=== PATIENT | male | born 1950 | race Caucasian/White ===

== ENCOUNTER 2022-04-28 15:35 | Outpatient (REF) | payer MEDICARE, OTHER, SELFPAY ==
[2022-04-28 19:21] LABS: MANUAL DIFF FLAG NO
[2022-04-28 19:23] LABS: Basophils Percent Auto 0.5 % (0-2); Eosinophils Absolute Auto 0.1 X10*3/uL (0.0-0.4); Eosinophils Percent Auto 1.1 % (0-4); Hematocrit 40.6 % (42.0-52.0); Imm Gran Abs Auto 0.02 X10*3/uL (0.00-0.03); Imm Gran Pct Auto 0.3 % (0.0-0.4); Lymphocytes Absolute Auto 2.2 X10*3/uL (1.2-4.9); Lymphocytes Percent Auto 27.9 % (20-40); Mean Corpuscular HGB Conc 34.5 g/dl (31.0-36.0); Mean Corpuscular Hemoglobin 35.2 pg (27.0-33.0); Mean Platelet Volume 9.9 fL (9.4-12.4); Monocytes Absolute Auto 0.7 X10*3/uL (0.1-1.2); Monocytes Percent Auto 8.8 % (2-11); Neutrophils Absolute Auto 4.9 x10*3/uL (2.0-8.3); Neutrophils Percent Auto 61.4 % (45-73); Platelet Count 148 X10*3/uL (160-400); Red Blood Count 3.98 X10*6/uL (4.60-5.80)
[2022-04-28 19:34] LABS: Alanine Aminotransferase 23 U/L (0-40); Albumin Level 4.2 g/dL (3.5-5.0); Alkaline Phosphatase 87 U/L (39-117); Anion Gap 11 (12-20); Aspartate Amino Transferase 18 U/L (5-37); Bilirubin Total 0.5 mg/dL (0.0-1.0); Blood Urea Nitrogen 16 mg/dL (9-16); Calcium 8.9 mg/dL (8.4-10.2); Carbon Dioxide 22 mmol/L (22-29); Chloride 110 mmol/L (96-108); Estimated Glomerular Filt Rate 55; Glucose Random 102 mg/dL (60-115); Potassium 4.1 mmol/L (3.3-5.1); Sodium 139 mmol/L (135-145); Total Protein 6.5 g/dL (6.5-8.0)
[2022-04-28 19:55] LABS: Prostate Specific Antigen 0.94 ng/mL (<0.05-4.0)
[2022-04-28 19:59] LABS: Erythrocyte Sedimentation Rate 11 MM/HR (0-15)
== END 2022-04-28 15:36 | disposition home or self-care (01) ==
LOC: HO.MANLDS 15:35
PROVIDERS: Visit Provider Internal Medicine
DX: Z12.5 Encounter for screening for malignant neoplasm of prostate (principal); I10 Essential (primary) hypertension
CPT/HCPCS: 36415; 80053; 84153; 85025; 85652

== ENCOUNTER 2025-09-14 12:10 | Outpatient (REF) | payer MEDICARE, OTHER, SELFPAY ==
--- OUTSIDE RECORDS SUMMARY | 2025-09-14 14:30 | XMS_ITS | Encounter Summary ---
Author Organization [facility] Address [address] [place] [id number] Phone Care Team Providers Care Cub Reporter Name Role Phone Praneeth Barrow Primary Care Provider [phone] Encounter Details Date Type Department Care Team (Latest Contact Info) Description 03/12/2024 Transcribe Orders Virtual Department [address] [place] [address] Sarai Link PA [address] [facility] [place] [address] [place] [address] Unspecified fall, initial encounter (Primary Dx) Social History Tobacco Use Types Packs/Day Years Used Date Smoking Tobacco: Every Day Cigarettes Smokeless Tobacco: Never Comments:3/4 pack per day Alcohol Use Standard Drinks/Week Comments Not Currently 2 (1 standard drink = 0.6 oz pur e alcohol) Education Answer Date Recorded Are you interested in more education? Not on geovanny e 03/02/2023 Are you concerned about learning? Not on file 03/02/2023 No 03/02/2023 No 03/02/2023 Digital Access Answer Date Recorded No 03/31/2023 No 03/31/2023 Reliable internet access at home? Not on file 03/31/2023 Device with a working camera? 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 Not on file Not on file documented as of this encounter Plan of Treatment Upcoming Encounters Date Type Department Care Team (Late st Contact Info) Description 11/17/2025 12:45 PM EST Office Visit [facility] [address] [facility] [address]rd [address], [address] [place] [address] Richar Drake, [address] [facility] [address] [place] [address] documented as of this encounter Results * XR FOOT 3 OR MORE VIEWS (RIGHT) (03/14/2024 2:58 PM EDT) Anatomical Region Laterality Modality Foot Right Computed Radiogr aphy 03/19/2024 12:0 8 AM EDT Impressions 03/19/2024 12:10 AM EDT No acute osseous abnormality. Mild to moderate forefoot degenerative change. New 5 mm linear metallic density structure along the plantar surface of the third and fourth metatarsal heads, may reflect a foreign body. Narrative 03/19/2024 12:10 AM EDT XR FOOT 3 OR MORE VIEWS (RIGHT) Referring clinician's provided indication for this examination in [facility]: Outside Radiology Order; fall COMPARISON: XR FOOT 3 OR MORE VIEWS (RIGHT) FINDINGS: No acute fracture or dislocation. Alignment within normal limits. Mild to moderate interphalangeal and first metatarsophalangeal joint space narrowing with marginal spurring. A 5 mm linear metallic density structure overlies the plantar surface of the third and fourth metatarsal heads. There are questionable erosions in the medial and middle cuneiform joint, potentially degenerative. Procedure Note Lidya Romo MD - 03/19/2024 XR FOOT 3 OR MORE VIEWS (RIGHT) Referring clinician's provided indication for this examination in [facility]:Outside Radiology Order; fall COMPARISON: XR FOOT 3 OR MORE VIEWS (RIGHT) FINDINGS: No acute fracture or dislocation. Alignment within normal limits. Mild tomoderate interphalangeal and first metatarsophalangeal joint spacenarrowing with marginal spurring. A 5 mm linear metallic density structure overlies the plantar surface ofthe third and fourth metatarsal heads. There are questionable erosions in the medial and middle cuneiform joint,potentially degenerative. IMPRESSION: No acute osseous abnormality. Mild to moderate forefoot degenerative change. New 5 mm linear metallic density structure along the plantar surface ofthe third and fourth metatarsal heads, may reflect a foreign body. us Sarai MAIER IMG XR LOWER EXTREMITY Lola l Result * XR FEMUR (RIGHT) 2 VIEWS (03/14/2024 2:58 PM EDT) Anatomical Region Laterality Modality Thigh Right Computed Radiogr aphy 03/19/2024 12:0 5 AM EDT Impressions 03/19/2024 12:08 AM EDT No acute fracture. Mild to moderate knee degenerative change. Narrative 03/19/2024 12:08 AM EDT XR FEMUR 2 OR MORE VIEWS (RIGHT) Referring clinician's provided indication for this examination in [facility]: Outside Radiology Order; fall COMPARISON: None FINDINGS: No acute fracture or dislocation. Gluteal enthesopathy at the greater trochanter. Calcific enthesopathy of the greater trochanter. Partially visualized hip joint space narrowing. Mild to moderate tricompartmental joint space narrowing at the knee. Arteries moderately calcified. Procedure Note Lidya Romo MD - 03/19/2024 XR FEMUR 2 OR MORE VIEWS (RIGHT) Referring clinician's provided indication for this examination in [facility]:Outside Radiology Order; fall COMPARISON: None FINDINGS: No acute fracture or dislocation. Gluteal enthesopathy at the greatertrochanter. Calcific enthesopathy of the greater trochanter. Partiallyvisualized hip joint space narrowing. Mild to moderate tricompartmentaljoint space narrowing at the knee. Arteries moderately calcified. IMPRESSION: No acute fracture. Mild to moderate knee degenerative change. Sarai PULIDO XR LOWER EXTREMITY Lola l Result * XR ANKLE 3 OR MORE VIEWS (RIGHT) (03/14/2024 2:57 PM EDT) Anatomical Region Laterality Modality Ankle Right Computed Radiogr aphy 03/19/2024 12:0 4 AM EDT Impressions 03/19/2024 12:05 AM EDT No acute osseous abnormality. Mild tibiotalar osteoarthritis. Narrative 03/19/2024 12:05 AM EDT XR ANKLE 3 OR MORE VIEWS (RIGHT) Referring clinician's provided indication for this examination in Epic: Outside Radiology Order; fall COMPARISON: XR ANKLE 3 OR MORE VIEWS (RIGHT) FINDINGS: No acute fracture or dislocation. No regional soft tissue swelling. Ankle mortise symmetric. Mild spurring at the tibiotalar joint. 2 mm plantar calcaneal spur. Procedure Note Lidya Romo MD - 03/19/2024 XR ANKLE 3 OR MORE VIEWS (RIGHT) Referring clinician's provided indication for this examination in Epic:Outside Radiology Order; fall COMPARISON: XR ANKLE 3 OR MORE VIEWS (RIGHT) FINDINGS: No acute fracture or dislocation. No regional soft tissue swelling. Anklemortise symmetric. Mild spurring at the tibiotalar joint. 2 mm plantarcalcaneal spur. IMPRESSION: No acute osseous abnormality. Mild tibiotalar osteoarthritis. Sarai MAIER IMG XR LOWER EXTREMITY Lola l Result documented in this encounter Visit Diagnoses Diagnosis Unspecified fall, initial encounter- Primary Unspecified fall, initial encounter Unspecified fall, initial encounter Unspecified fall, initial encounter documented in this encounter Care Teams Cub Reporter Relationship Specialty Start Date End Date Praneeth Barrow DO [email or web address] PCP - General 11/08/17 documented as of this encounter Additional Source Comments The information contained in this document represents components of the legal health record. It is not the complete legal health record.[facility]
--- OUTSIDE RECORDS SUMMARY | 2025-09-14 14:30 | XMS_ITS | Encounter Summary ---
Author Organization [facility] Address [address] [place] [address] Phone Care Team Providers Care Mat Cleaning Machine Operator Name Role Phone Praneeth Barrow DO Primary Care Provider [phone] Reason for Referral * MRI/CAT Scan - Closed Specialty Diagnoses / Procedures Referred By Geri austin Referred To Contact Radiology Diagnoses Other specified disorders of adrenal gland Procedures CT Abdomen Only (No Pelvis) Praneeth Barrow DO Phone: tel: fax: mailto:[email or web address] Referral ID Status Reason Start Date Expiration Date Visits Re quested Visits Authorized [id number] Closed 07/23/2024 07/23/2025 1 1 * Outpatient Procedure - Closed Specialty Diagnoses / Procedures Referred By Geri austin Referred To Contact Radiology Diagnoses Pararenal abdominal aortic aneurysm, without rupture Procedures US Aorta Duplex Complete Praneeth Barrow DO Phone: tel: fax: mailto:[email or web address] Referral ID Status Reason Start Date Expiration Date Visits Re quested Visits Authorized [id number] Closed 07/23/2024 07/23/2025 1 1 Encounter Details Date Type Department Care Team (Late st Contact Info) Description 07/23/2024 Transcribe Orders Virtual Department [address] [place] [address] Praneeth Barrow DO [address] [facility] [place] [address] [place] [address] Pararenal abdominal aortic aneurysm, without rupture (Primary Dx); Other specified disorders of adrenal gland Social History Tobacco Use Types Packs/Day Years [...] 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 Not on file documented as of this encounter Plan of Treatment Upcoming Encounters Date Type Department Care Team (Late st Contact Info) Description 11/17/2025 12:45 PM EST Office Visit [facility] [address] [place] [address] [address]rd Floor, [address] [place] [address] Richar Drake DO [address] [facility] [address] [place] [address] [email or web address] documented as of this encounter Results * CT ABDOMEN (ADRENAL MASS) WITHOUT CONTRAST (09/24/2024 10:52 AM EST) Anatomical Region Laterality Modality Abdomen, Abdominal Vasculature C omputed Tomography 09/30/2024 8:43 AM EST Impressions 09/30/2024 8:56 AM EST 1. Stable 2 x 2.4 cm left adrenal nodule from lumbar spine CT 2018 probably representing a benign adenoma. Normal right adrenal gland. 2. Bilateral renal cysts. Stable 3.6 x 3.7 cm fusiform infrarenal abdominal aortic aneurysm. IVC filter. Diverticulosis. Narrative 09/30/2024 8:[address] ABDOMEN (ADRENAL MASS) WITHOUT CONTRAST Referring clinician's provided indication for this examination in Epic: Outside Radiology Order; disorder adrenal gland TECHNIQUE: Multidetector-row CT of the abdomen was performed without intravenous contrast using tailored dose modulation techniques. Images were reconstructed in the axial, coronal, and sagittal planes. COMPARISON: Previous CT of the abdomen and pelvis February 2024 exam lumbar spine MRI February 2019 ABSENCE OF INTRAVENOUS CONTRAST DECREASES SENSITIVITY FOR DETECTION OF FOCAL LESIONS AND VASCULAR PATHOLOGY. FINDINGS: Lower Chest: Normal. No consolidation or pleural effusions. Liver: Normal. No focal lesions. Biliary: Normal. No biliary ductal dilatation. Spleen: Normal. No splenomegaly or focal lesions. Pancreas: Normal. No masses or ductal dilatation. Adrenal Glands: 2 x 2.4 cm left adrenal nodule. This is stable going back to the lumbar spine CT from 2019. Hounsfield units without IV contrast measure between 16- 27. The right adrenal gland is normal. Kidneys/Ureters: Bilateral renal cysts. No stone or hydronephrosis. Bowel: Diverticulosis of the colon. No distention or wall thickening. Peritoneum/Retroperitoneum: Partially visualized SENIOR LITIGATION PARALEGAL shunt catheter. No masses, pneumoperitoneum, or fluid. Lymph Nodes: Normal. No lymphadenopathy. Vessels: Infrarenal IVC filter, unchanged. 3 x 3.7 cm infrarenal abdominal aortic aneurysm, unchanged. Bones/Soft Tissues: Degenerative changes of the spine. Procedure Note Sabine Lowe MD - 09/30/2024 CT ABDOMEN (ADRENAL MASS) WITHOUT CONTRAST Referring clinician's provided indication for this examination in [facility]:Outside Radiology Order; disorder adrenal gland TECHNIQUE: Multidetector-row CT of the abdomen was performed withoutintravenous contrast using tailored dose modulation techniques. Imageswere reconstructed in the axial, coronal, and sagittal planes. COMPARISON: Previous CT of the abdomen and pelvis February 2024 exam lumbarspine MRI February 2019 ABSENCE OF INTRAVENOUS CONTRAST DECREASES SENSITIVITY FOR DETECTION OFFOCAL LESIONS AND VASCULAR PATHOLOGY. FINDINGS: Lower Chest: Normal. No consolidation or pleural effusions. Liver: Normal. No focal lesions. Biliary: Normal. No biliary ductal dilatation. Spleen: Normal. No splenomegaly or focal lesions. Pancreas: Normal. No masses or ductal dilatation. Adrenal Glands: 2 x 2.4 cm left adrenal nodule. This is stable going backto the lumbar spine CT from 2019. Hounsfield units without IV contrastmeasure between 16- 27. The right adrenal gland is normal. Kidneys/Ureters: Bilateral renal cysts. No stone or hydronephrosis. Bowel: Diverticulosis of the colon. No distention or wall thickening. Peritoneum/Retroperitoneum: Partially visualized SENIOR LITIGATION PARALEGAL shunt catheter. Nomasses, pneumoperitoneum, or fluid. Lymph Nodes: Normal. No lymphadenopathy. Vessels: Infrarenal IVC filter, unchanged. 3 x 3.7 cm infrarenal abdominalaortic aneurysm, unchanged. Bones/Soft Tissues: Degenerative changes of the spine. IMPRESSION: 1. Stable 2 x 2.4 cm left adrenal nodule from lumbar spine CT 2018probably representing a benign adenoma. Normal right adrenal gland. 2. Bilateral renal cysts. Stable 3.6 x 3.7 cm fusiform infrarenalabdominal aortic aneurysm. IVC filter. Diverticulosis. us Praneeth A Bigda DO IMG CT XSPECIALTY ORDERABLES Fin al Result * US Aorta Duplex Complete (07/29/2024 11:48 AM EDT) Anatomical Region Laterality Modality Aorta Ultrasound 07/29/2024 11:4 8 AM EDT Narrative 07/30/2024 10:36 AM EDT US AORTA DUPLEX COMPLETE Referring clinician's provided indication for this examination in Epic: Outside Radiology Order; disorder adrenal gland TECHNIQUE: A duplex ultrasound evaluation of the abdominal aorta and iliac arteries as well as the inferior vena cava was performed using a combination of abad scale imaging, color duplex and spectral Doppler analysis. COMPARISON: CT angiogram dated 02/04/2024, aortic ultrasound dated 08/28/2023 FINDINGS: Exam Quality: Technically adequate exam demonstrates: GENERAL: Abnormal color and spectral Doppler in the imaged aorta. Atherosclerotic plaque throughout. Aorta: Proximal: Aneurysmal Mid: Aneurysmal Distal: Ectatic IVC: Patent with normal spectral Doppler waveforms. Right Common Iliac Artery: Ectatic Left Common Iliac Artery: Ectatic Duplex: Proximal aorta: Peak systolic velocity (cm/s): 58.5 Aorta Diameter Proximal (cm): 3.0 x 2.6 Mid aorta: Peak systolic velocity (cm/s): 67.0 Aorta Diameter Mid (cm): 3.8 x 4.2 Distal aorta: Peak systolic velocity (cm/s): 23.8 Aorta Diameter Distal (cm): 2.6 x 2.7 Iliac arteries: Right common Iliac artery: Peak systolic velocity (cm/s): 174 Diameter(cm): 1.1 x 1.1 Left common Iliac artery: Peak systolic velocity (cm/s): 187 Diameter (cm): 1.2 x 1.2 IMPRESSIONS: * Abdominal aortic aneurysm measuring up to 4.2 cm, increased in size and previously measuring 3.[address] angiogram from 02/04/2024 and 3.6 cm on ultrasound from 08/28/2023. Procedure Note Kalpana Mendez MD - 07/30/2024 US AORTA DUPLEX COMPLETE Referring clinician's provided indication for this examination in Epic:Outside Radiology Order; disorder adrenal gland TECHNIQUE: A duplex ultrasound evaluation of the abdominal aorta and iliacarteries as well as the inferior vena cava was performed using acombination of abad scale imaging, color duplex and spectral Doppleranalysis. COMPARISON: CT angiogram dated 02/04/2024, aortic ultrasound dated1 FINDINGS: Exam Quality: Technically adequate exam demonstrates: GENERAL: Abnormal color and spectral Doppler in the imaged aorta.Atherosclerotic plaque throughout. Aorta: Proximal: Aneurysmal Mid: Aneurysmal Distal: Ectatic IVC: Patent with normal spectral Doppler waveforms. Right Common Iliac Artery: Ectatic Left Common Iliac Artery: Ectatic Duplex: Proximal aorta: Peak systolic velocity (cm/s): 58.5 Aorta Diameter Proximal (cm): 3.0 x 2.6 Mid aorta: Peak systolic velocity (cm/s): 67.0 Aorta Diameter Mid (cm): 3.8 x 4.2 Distal aorta: Peak systolic velocity (cm/s): 23.8 Aorta Diameter Distal (cm): 2.6 x 2.7 Iliac arteries: Right common Iliac artery: Peak systolic velocity (cm/s): 174 Diameter(cm): 1.1 x 1.1 Left common Iliac artery: Peak systolic velocity (cm/s): 187 Diameter (cm): 1.2 x 1.2 IMPRESSIONS: * Abdominal aortic aneurysm measuring up to 4.2 cm, increased in size andpreviously measuring 3.[address] angiogram from 02/04/2024 and 3.6 cm onultrasound from 08/28/2023. us Praneeth Barrow DO IMG US ABDOMEN Final Result documented in this encounter Visit Diagnoses Diagnosis Pararenal abdominal aortic aneurysm, without rupture- Primary Other specified disorders of adrenal gland Pararenal abdominal aortic aneurysm, without rupture Other specified disorders of adrenal gland documented in this encounter Care Teams Mat Cleaning Machine Operator Relationship Specialty Start Date End Date Praneeth Barrow DO [email or web address] PCP - General 11/08/17 documented as of this encounter Additional Source Comments The information contained in this document represents components of the legal health record. It is not the complete legal health record.[facility]
--- OUTSIDE RECORDS SUMMARY | 2025-09-14 14:30 | XMS_ITS | Encounter Summary ---
Author Organization [facility] Address [address] [place] [address] Phone Care Team Providers Care Cabinet Professional Name Role Phone Praneeth Barrow Primary Care Provider [phone] Encounter Details Date Type Department Care Team (Late st Contact Info) Description 09/19/2024 Ancillary Orders [facility] [address] [address] Marino Valdes MD 10 Members [facility], [address] [address] [email or web address] Headache disorder (Primary Dx); S/P SAFE TECHNICIAN shunt Social History Tobacco Use Types Packs/Day Years [...] 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 Not on file documented as of this encounter Plan of Treatment Upcoming Encounters Date Type Department Care Team (Late st Contact Info) Description 11/17/2025 12:45 PM EST Office Visit [facility] [address] [facility] [address] Floor, [address] [place] [address] Richar Drake, [address] [facility] [address] [place] [address] [email or web address] documented as of this encounter Results * XR SKULL LESS THAN 4 VIEWS (10/04/2024 9:12 AM EST) Anatomical Region Laterality Modality Head Computed Radiogr aphy 10/05/2024 2:53 PM EST Impressions 10/05/2024 3:03 PM EST FINDINGS/IMPRESSION: There is a right frontal approach ventricular peritoneal shunt, extending beyond the field of view inferiorly, not significantly changed compared to prior imaging given differences in technique. The visualized radiopaque portions of the shunt tubing appear grossly intact. There are sequela of left parieto-occipital craniectomy, similar to prior imaging, again given differences in technique. There are sequela of anterior fusion at C4-C5 and C5-C6, incompletely evaluated. There is a curvilinear wire density projecting over the left lower neck, extending beyond the field of view inferiorly, not significantly changed. There is no evidence of acute fracture. Narrative 10/05/2024 3:03 PM EST XR SKULL LESS THAN 4 VIEWS Referring clinician's provided indication for this examination in [facility]: Pain COMPARISON: CT head 05/02/2022, cervical spine radiographs 04/26/2020 Procedure Note Sabine Jasso MD - 10/05/2024 XR SKULL LESS THAN 4 VIEWS Referring clinician's provided indication for this examination in [facility]:Pain COMPARISON: CT head 05/02/2022, cervical spine radiographs 04/26/2020 IMPRESSION: FINDINGS/IMPRESSION: There is a right frontal approach ventricular peritoneal shunt, extendingbeyond the field of view inferiorly, not significantly changed compared toprior imaging given differences in technique. The visualized radiopaqueportions of the shunt tubing appear grossly intact. There are sequela ofleft parieto-occipital craniectomy, similar to prior imaging, again givendifferences in technique. There are sequela of anterior fusion at C4-C5and C5-C6, incompletely evaluated. There is a curvilinear wire densityprojecting over the left lower neck, extending beyond the field of viewinferiorly, not significantly changed. There is no evidence of acutefracture. us Marino Valdes MD IMG XR HEAD AND SHUNT SERIES Fin al Result * XR ABDOMEN 1 VIEW (10/04/2024 9:12 AM EST) Anatomical Region Laterality Modality Abdomen Computed Radiogr aphy 10/04/2024 3:22 PM EST Impressions 10/04/2024 3:25 PM EST 1. No acute abnormality. Narrative 10/04/2024 3:25 PM EST XR ABDOMEN 1 VIEW Referring clinician's provided indication for this examination in [facility]: Pain COMPARISON: XR ABDOMEN 1 VIEW FINDINGS: Tubes/Lines: IVC filter. Catheter extending right upper quadrant into the left lower quadrant. No fracture or change in the partially visualized catheter. Bowel: Moderate colonic stool load. Nonobstructive bowel gas pattern. Vascular calcification. Mild degenerative change. Procedure Note Sandy Beyer MD - 10/04/2024 XR ABDOMEN 1 VIEW Referring clinician's provided indication for this examination in [facility]:Pain COMPARISON: XR ABDOMEN 1 VIEW FINDINGS: Tubes/Lines: IVC filter. Catheter extending right upper quadrant into theleft lower quadrant. No fracture or change in the partially visualizedcatheter. Bowel: Moderate colonic stool load. Nonobstructive bowel gas pattern. Vascular calcification. Mild degenerative change. IMPRESSION: 1. No acute abnormality. us Marino Valdes MD IMG XR ABDOMEN Final Result * XR CHEST PA AND LATERAL 2 VIEWS (10/04/2024 9:11 AM EST) Anatomical Region Laterality Modality Chest Computed Radiogr aphy 10/04/2024 3:20 PM EST Impressions 10/04/2024 3:22 PM EST No acute cardiopulmonary abnormality. Narrative 10/04/2024 3:22 PM EST XR CHEST PA AND LATERAL 2 VIEWS Referring clinician's provided indication for this examination in [facility]: Pain COMPARISON: XR CHEST PA AND LATERAL 2 VIEWS FINDINGS: Devices/Tubes/Lines: Partially visualized catheter extending along the length of the right hemithorax extending both cranial and caudal to this radiograph. Device left mid hemithorax laterally extending left neck, with postoperative change, as before, not well seen at the neck. Lungs: Normal. The lungs are clear. No focal consolidation or pulmonary edema. Pleura: Normal. No pleural effusion or pneumothorax. Heart/Mediastinum: Unchanged in appearance. Bones/Soft Tissues: No acute fracture. Please see separate x-rays of the abdomen and skull performed same day. Procedure Note Sandy Beyer MD - 10/04/2024 XR CHEST PA AND LATERAL 2 VIEWS Referring clinician's provided indication for this examination in [facility]:Pain COMPARISON: XR CHEST PA AND LATERAL 2 VIEWS FINDINGS: Devices/Tubes/Lines: Partially visualized catheter extending along thelength of the right hemithorax extending both cranial and caudal to thisradiograph. Device left mid hemithorax laterally extending left neck, withpostoperative change, as before, not well seen at the neck. Lungs: Normal. The lungs are clear. No focal consolidation or pulmonaryedema. Pleura: Normal. No pleural effusion or pneumothorax. Heart/Mediastinum: Unchanged in appearance. Bones/Soft Tissues: No acute fracture. Please see separate x-rays of the abdomen and skull performed same day. IMPRESSION: No acute cardiopulmonary abnormality. us Marino Valdes MD IMG XR CHEST Final Result documented in this encounter Visit Diagnoses Diagnosis Headache disorder- Primary Headache S/P SAFE TECHNICIAN shunt Presence of cerebrospinal fluid drainage device Headache disorder Headache S/P SAFE TECHNICIAN shunt Presence of cerebrospinal fluid drainage device Headache disorder Headache S/P SAFE TECHNICIAN shunt Presence of cerebrospinal fluid drainage device Headache disorder Headache S/P SAFE TECHNICIAN shunt Presence of cerebrospinal fluid drainage device documented in this encounter Care Teams Cabinet Professional Relationship Specialty Start Date End Date Praneeth Barrow DO [email or web address] PCP - General 11/08/17 documented as of this encounter Additional Source Comments The information contained in this document represents components of the legal health record. It is not the complete legal health record.[facility]
--- OUTSIDE RECORDS SUMMARY | 2025-09-14 14:30 | XMS_ITS | Encounter Summary ---
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 Not on file Not on file documented as of this encounter Plan of Treatment Upcoming Encounters Date Type Department Care Team (Late st Contact Info) Description 11/17/2025 12:45 PM EST Office Visit [facility] [address] [facility] 3[address], [address] [place] [address] Richar Drake DO [address] [facility] [address] [place] [id number] documented as of this encounter Visit Diagnoses Not on filedocumented in this encounter Care Teams Silk Screen Printer Helper Relationship Specialty Start Date End Date Praneeth Barrow DO PCP - General 11/08/17 documented as of this encounter Additional Source Comments The information contained in this document represents components of the legal health record. It is not the complete legal health record.[facility]
--- OUTSIDE RECORDS SUMMARY | 2025-09-14 14:30 | XMS_ITS | Clinical Summary ---
Author Organization [facility] Address [address] [place] [phone] Phone Care Team Providers Care Scientific Informatics Leader Name Role Phone Shelley Izquierdo Primary Care Provider [phone] Allergies No known active allergies Medications aspirin 81 MG EC tablet 1 tablet Active MULTIVIT WITH MINERALS/LUTEIN (MULTIVITAMIN 50 PLUS ORAL) Active albuterol (PROAIR HFA) 90 mcg/actuation inhaler 2 puffs as needed Active sertraline (ZOLOFT) 100 MG tablet 1 tablet & 1/2 TABS 0 Active montelukast (SINGULAIR) 10 mg tablet 1 tablet in the evening Active nicotine (NICOTROL) 10 mg inhaler Inhale 2 puffs into the lungs every 2 (two) hours as needed for smoking cessation. Inhale deeply into back of throat or puff in short breaths. As you puff, nicotine is absorbed into your mouth and throat. 168 each 3 8 Active Additional Information Patient not taking.Reported on 07/02/2025 atorvastatin (LIPITOR) 40 MG tablet Take 40 mg by mouth nightly. Active acetaminophen (TYLENOL) 325 mg tablet Take 2 tablets (650 mg total) by mouth every 6 (six) hours as needed for mild pain. 40 tablet 9 Active lidocaine (LIDODERM) 5 % Place 1 patch onto the skin daily. Remove & Discard patch within 12 hours or as directed by 15 patch 9 Active Additional Information Patient not taking.Reported on 07/02/2025 cyclobenzaprine (FLEXERIL) 5 MG tablet Take 1 tablet (5 mg total) by mouth 3 (three) times a day as needed (muscle spasm). Do not drink or drive after taking. Medicine may make you drowsy. 8 tablet 9 Active Additional Information Patient not taking.Reported on 07/02/2025 LORazepam (ATIVAN) 1 MG tablet Take 1 mg by mouth daily as needed. Active omeprazole (PRILOSEC) 20 MG capsule omeprazole 20 mg capsule,delayed release Active flu vacc [id number],65yr up,-PF (FLUZONE HIGHDOSE QUAD - PF) 240 mcg/0.7 mL Syrg Fluzone High-Dose Quad (PF) 240 mcg/0.7 mL IM syringe PHARMACY ADMINISTERED Active fluticasone-ume clidin-vilanter (TRELEGY ELLIPTA) 100-62.5-25 mcg inhalation powder Inhale 1 puff into the lungs daily. 60 each 11 0 Active Additional Information Patient not taking.Reported on 07/02/2025 budesonide (PULMICORT) 0.5 mg/2 mL nebulizer solution Take 2 mL (0.5 mg total) by nebulization 2 (two) times a day. 360 mL 3 0 Active Additional Information Patient not taking.Reported on 07/02/2025 atenolol (TENORMIN) 25 MG tablet Take 25 mg by mouth daily. Active zonisamide (ZONEGRAN) 100 MG capsule Take 200 mg by mouth. 1 Active lamoTRIgine (LAMICTAL XR) 300 mg TR24 Take 600 mg by mouth. 1 Active levETIRAcetam (KEPPRA) 1000 MG tablet Take 1,000 mg by mouth. 1 Active levETIRAcetam (KEPPRA) 750 MG tablet Take 750 mg by mouth. 1 Active baclofen (LIORESAL) 5 mg tablet TAKE 1 TABLET BY MOUTH EVERY DAY NEEDED MUSCLE SPASM 5 Active fluorometholone (FLAREX) 0.1 % ophthalmic suspension Flarex 0.1 % eye drops,suspension INSTILL 1 DROPP IN BOTH EYES EVERY OTHER DAY Active tobramycin-dexA METHasone (TOBRADEX) ophthalmic ointment TobraDex 0.3 %-0.1 % eye ointment APPLY TO BOTH LIDS ONCE DAILY AT BED TIME FOR ONE WEEK Active prednisoLONE acetate (PRED FORTE) 1 % ophthalmic suspension PLACE 1 DROP INTO EACH EYE TWICE DAILY DIRECTED Active Active Problems Problem Noted Date Diagnosed Date Coronary arteriosclerosis 04/13/2025 Assessment & Plan (04/13/2025 1:34 PM EDT): This patient has known CAD we just have to control his risk factors and get an assessment of his LV function and ischemic burden with the above-mentioned examinations in addition I ordered him lab tests Weakness 06/28/2018 Right hemiparesis 06/28/2018 Assessment & Plan (04/13/2025 1:33 PM EDT): He will have a difficult time walking on the treadmill therefore I ordered a pharmacologic stress test Assessment & Plan (06/29/2018 5:56 PM EDT): Presented with right-sided weakness after seizure. Improved significantly. Head CT unremarkable. Likely related to seizure, question Tien's paralysis. Metabolic derangements (DAMIEN) could also be a factor --Continue usual antiepileptics including Lamictal, zonisamide, and Keppra. Pharmacy help appreciated, home regimen verified as outpatient pharmacy. --PT/OT evals today showed significant improvement in mobility. They recommend a walker and home physical therapy. -- is concerned about him going home today and needs help at home caring for him. We will involve case liner in the morning and get VNA to the house along with home PT. Essential hypertension 06/28/2018 Assessment & Plan (04/13/2025 1:33 PM EDT): Well-controlled at this time Assessment & Plan (06/28/2018 10:57 AM EDT): Continue atenolol, hold Nicho Elevated serum creatinine 06/28/2018 Assessment & Plan (06/29/2018 5:58 PM EDT): Baseline creatinine 1.4-1.5 in 2016. Presented with elevated creatinine of 2.1. Now back down to 1.3. No more vomiting. --Avoid nephrotoxins Status post VNS (vagus nerve stimulator) placeme nt 04/14/2018 Obstructive sleep apnea 01/11/2018 Assessment & Plan (04/13/2025 1:33 PM EDT): Present but treated Assessment & Plan (10/07/2020 4:59 PM EST): Patient not using CPAP as he has been feeling suffocated. Perhaps using the budesonide ampules intranasally again will help that. Assessment & Plan (01/11/2018 11:19 AM EST): Recommend weight loss and CPAP. Nasal obstruction is a significant barrier to treatment. Chronic sinusitis 01/11/2018 Assessment & Plan (10/07/2020 4:59 PM EST): Will reorder Pulmicort nebs to be instill intranasally. Not sure why it would cost in the thousand dollars for that medication. I feel that it must be an error and I will re-prescribe. Assessment & Plan (01/11/2018 11:18 AM EST): Still constantly dealing with nasal obstruction. Will refer to Dr. Cao (ENT). Patient did not have a satisfactory experience with Dr. Chin in the past. Moderate persistent asthma without complication 01/11/2018 Assessment & Plan (06/28/2018 2:02 AM EDT): We will continue his Advair, Singulair and as needed albuterol Assessment & Plan (01/11/2018 11:18 AM EST): Continue Pulmicort and montelukast. Simple chronic bronchitis 01/11/2018 Assessment & Plan (10/07/2020 4:58 PM EST): Recommend resuming Trelegy inhaler. Would be helpful to prevent exacerbations and keep pulmonary function test stable. Assessment & Plan (01/11/2018 11:17 AM EST): Will consider adding Daliresp if he has three or more flare-ups in a year. Encouraged smoking cessation. Patient states he is bored all day and has no alternatives. smokes too. Recommended that they both quit together and try the nicotine inhaler. Not sure if it is cost-prohibitive. He is willing to try. Unsteady gait 06/22/2015 Traumatic brain injury 11/09/2009 Seizure disorder Assessment & Plan (06/28/2018 2:08 AM EDT): We will continue his home antiepileptic medications. Resolved Problems Problem Noted Date Diagnosed Date Resolved Date Vomiting 06/28/2018 06/30/2018 Assessment & Plan (06/29/2018 5:58 PM EDT): Resolved. He denies pain and demonstrates no tenderness on exam. --KUB unremarkable --When necessary zofran Encounters Date Type Department Care Team Description 09/14/2025 Telephone [facility] [address] [place] [id number] Parth Giles MD 09/14/2025 Transcribe Orders [facility] [address] [place] [address] Sarai Link PA 07/09/2025 10:06 AM EDT - 07/09/2025 11:59 PM EDT Hospital Encounter [facility], Nuclear Medicine - [facility] [address] [place] [address] Richar Drake, DO Discharge Disposition: Home or Self Care 07/09/2025 9:30 AM EDT - 07/09/2025 10:05 AM EDT Hospital Encounter Non-Invasive Cardiology [address] [place] [address] Richar Drake, DO Discharge Disposition: Home or Self Care 07/09/2025 9:15 AM EDT - 07/09/2025 9:29 AM EDT Hospital Encounter Non-Invasive Cardiology [address] [place] [address] Richar Drake, DO Discharge Disposition: Home or Self Care 07/09/2025 8:16 AM EDT - 07/09/2025 9:14 AM EDT Hospital Encounter [address] [address] Richar Drake, DO Discharge Disposition: Home or Self Care 07/09/2025 8:00 AM EDT - 07/09/2025 8:15 AM EDT Hospital Encounter [address] [address] Richar Drake, DO Discharge Disposition: Home or Self Care 07/09/2025 Ancillary Orders [facility] [address] [place] [address] [address], [address] [place] [address] Richar Drake, Coronary arteriosclerosis (Primary Dx) 07/02/2025 2:10 PM EDT Office Visit [facility] at [address] [address] Oumou Beyer, HAIR Bilateral impacted cerumen (Primary Dx) 06/30/2025 2:57 PM EDT - 06/30/2025 11:59 PM EDT Hospital Encounter [facility] [address] [place] [address] Richar Drake, DO Discharge Disposition: Home or Self Care 06/30/2025 2:14 PM EDT - 06/30/2025 2:56 PM EDT Hospital Encounter [facility] [address] [place] [address] Richar Drake, Discharge Disposition: Home or Self Care 06/30/2025 Transcribe Orders [facility] [address] [place] [address] Marino Valdes MD Fatigue, unspecified type (Primary Dx); 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, intractable, without status epilepticus 04/13/2025 Procedure Pass [facility] [address] [place] [address] from Last 3 Months Immunizations Immunization Administration Dates Next Due Influenza High-Dose Trivalent Preservative Free IM 01/11/2018 Pneumococcal conjugate PCV13 06/28/2018 Family History Medical History Relation Comments Heart attack Father Colon cancer Mother Heart attack Mother Liver cancer Mother Other Mother Family history o f cancer Relation Status Comments Father Mother Social History Tobacco Use Types Packs/Day Years Used Date Smoking Tobacco: Every Day Cigarettes Smokeless Tobacco: Never Tobacco Cessation:Ready to Q uit: Yes; Counseling Given: Yes Comments:3/4 pack per day Alcohol Use Standard [...] 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 Not on file Not on file Last Filed Vital Signs Vital Sign Reading Time Taken Comments Blood Pressure 140/60 07/09/2025 11:02 AM EDT Pulse 64 07/02/2025 1:55 PM EDT Temperature 36.4 C (97.6 F) 07/02/2025 1:55 PM EDT Respiratory Rate 12 07/02/2025 1:55 PM EDT Oxygen Saturation 96% 07/02/2025 1:55 PM EDT Inhaled Oxygen Concentration - - Weight 98 kg (216 lb) 03/27/2025 2:19 PM EDT Height 174 cm (5' 8.5 ) 07/02/2025 1:55 PM EDT Body Mass Index 32.84 03/27/2025 2:19 PM EDT Plan of Treatment Upcoming Encounters Date Type Department Care Team (Late st Contact Info) Description 11/17/2025 12:45 PM EST Office Visit [facility] [address], [address] [place] [address] Richar Drake DO [address] [facility] [address] [place] [address] [email or web address] Maintenance Due Date Last Done Comments Adult Td,Tdap Booster 1950 DEPRESSION SCREENING 1964 SMOKING Hx and SMOKELESS TOBACCO SCREENING 01/28/1965 COLOGUARD 01/28/1997 FIT TEST 01/28/1997 FOBT 01/28/1997 SIGMOIDOSCOPY 01/28/1997 VIRTUAL COLONOSCOPY 01/28/1997 RSV VACCINE (1 - Risk 50-74 years 1-dose series) 01/28/2002 ZOSTER VACCINES (2 of 2) 10/27/2020 09/01/2020 INFLUENZA VACCINE (#1) 2025 , 10/16/2023, 09/06/2022, Additional history exists COVID-19 VACCINE ( season) 2025 09/06/2022, 05/19/2022, 09/21/2021, Additional history exists BLOOD PRESSURE 01/02/2026 07/02/2025 COLONOSCOPY 09/13/2031 09/13/2021 COLORECTAL CANCER SCREENING 09/13/2031 HEPATITIS C SCREENING Completed 12/26/2018 PNEUMOCOCCAL VACCINES (50+ years) Completed 07/25/2024, 06/28/2018 ABDOMINAL AORTIC ANEURYSM (AAA) SCREENING Completed 09/24/2024, 07/29/2024, 02/04/2024, Additional history exists HEPATITIS A VACCINES Aged Out No long er eligible based on patient's age to complete this topic HIB VACCINES Aged Out No longer eligi ble based on patient's age to complete this topic IPV VACCINES Aged Out No longer eligi ble based on patient's age to complete this topic MENINGOCOCCAL VACCINES (ACWY) Aged Out No longer eligible based on patient's age to complete this topic MENINGOCOCCAL VACCINES (B) Aged Out N o longer eligible based on patient's age to complete this topic Medical Devices Not on file Procedures Procedure Name Priority Date/Time Associated Diagnosis Comments NC100 (TECH ORDER ONLY) NC STRESS TEST WITH NUCLEAR IMAGING Routine 07/09/2025 1:15 PM EDT Coronary arteriosclerosis NC MYOCARDIAL PERFUSION PHARMACOLOGIC STRESS MULTIPLE Routine 07/09/2025 1:05 PM EDT Coronary arteriosclerosis EAR CERUMEN REMOVAL Routine 07/02/2025 5 :49 PM EDT Bilateral impacted cerumen DIRECT LDL Routine 06/30/2025 3:10 PM EDT VITAMIN B12 Routine 06/30/2025 3:10 PM EDT Fatigue, unspecified type ZONISAMIDE LEVEL Routine 06/30/2025 3:10 PM EDT 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, intractable, without status epilepticus LAMOTRIGINE LEVEL Routine 06/30/2025 3:1 0 PM EDT 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, intractable, without status epilepticus LEVETIRACETAM (KEPPRA) LEVEL Routine 06/30/2025 3:10 PM EDT 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, intractable, without status epilepticus LIPID PANEL Routine 06/30/2025 3:10 PM EDT Coronary arteriosclerosis LFTS (HEPATIC PANEL) Routine 06/30/2025 3:10 PM EDT Coronary arteriosclerosis HEMOGLOBIN A1C Routine 06/30/2025 3:10 PM EDT Coronary arteriosclerosis TTE COMPREHENSIVE Routine 06/30/2025 2:5 5 PM EDT Shortness of breath CT ABDOMEN (ADRENAL MASS) WITHOUT CONTRAST Routine 09/24/2024 10:52 AM EST Other specified disorders of adrenal gland ENDOSCOPY, COLON 09/13/2021 10:5 1 AM EST HEPATITIS C ANTIBODY, QUALITATIVE Routine 12/26/2018 11:28 AM EST Routine general medical examination at a health care facility from Last 3 Months or Most Recently Relevant to Health Maintenance Results * NC Stress Result for Nuclear Stress Test (07/09/2025 1:15 PM EDT) Max Predicted Heart Rate 147 bpm [facility] Max BP Systolic 146 mmHg [facility] Max BP Diastolic 60 mmHg [facility] Max HR 123 BPM [facility] Resting HR 63 BPM [facility] Resting BP Systolic 128 mmHg [facility] Resting BP Diastolic 70 mmHg [facility] Peak METS 1.0 METS [facility] Peak HR 110 BPM [facility] Peak BP Systolic 136 mmHg [facility] Peak BP Diastolic 60 mmHg [facility] Anatomical Region Laterality Modality Heart Other 07/09/2025 10:0 5 AM EDT 07/09/2025 1:15 PM EDT Narrative 07/09/2025 1:56 PM EDT Stress Findings The resting heart rate was 63 BPM. The resting BP was 128/70 mmHg. A peak heart rate of 110 BPM was achieved. Peak BP was 136/60 mmHg. ECG REPORT- Test was performed as a dobutamine stress test due to history for seizures and inability to walk safely on the treadmill to achieve MPHR. Dobutamine was started at 5 mg micrograms mcg/kil/min and was ultimately titrated up to 30 mcg/kil/min per dobutamine protocol. This was followed by injection of Tc99m Sestamibi by Dayan nuclear scientist. 1. EKG - Baseline EKG showed sinus rhythm with PACs and a nonspecific ST-T wave abnormality. During exercise there was an exaggeration of the baseline ST-T wave abnormalities. 2. SYMPTOMS -He did report 9/10 chest discomfort with the infusion of dobutamine. This did resolve after 6 minutes of recovery. 3. PHYSIOLOGY - Resting HR was 63 bpm. After dobutamine infusion, HR 123 bpm (83% MPHR) 4. ARRHYTHMIAS -Frequent isolated PACs, rare isolated PVCs Conclusion -The EKG portion of this test was nondiagnostic for ischemia due to the presence of baseline ST-T wave abnormalities. There were symptoms reported concerning for angina. Nuclear images pending and will be reported separately. Ladi Blake NP with Dr. Hooper Response to Stress The patient exercised for minutes and seconds, achieving 1.0 METS at peak exercise. Baseline blood pressure was 128/70 mmHg, and baseline heart rate was 63 bpm. Peak blood pressure was 136/60 mmHg. The patient achieved a peak heart rate of 110 bpm, which is% of their maximum predicted heart rate. Rate pressure product was [id number]. us Richar Drake DO CV NM CARDIAC Final Result * NC Myocardial Perfusion Pharmacologic Stress Multiple (07/09/2025 1:05 PM EDT) Anatomical Region Laterality Modality Heart, Vascular Nuclear Medicine 07/09/2025 1:19 PM EDT Impressions 07/09/2025 3:00 PM EDT 1. Qualitative Findings: Myocardial perfusion images show no definite evidence of scar or ischemia. Mild posterobasal thinning is not clearly outside of normal limits and favored to be due to diaphragmatic attenuation artifact. 2. Left ventricular ejection fraction: 57% 3. Stress EKG findings were interpreted by cardiology and are reported separately. Please refer to that report in [facility]. ATTESTATION: I, Dr. Parth Roberto as teaching physician, have reviewed the images for this case and if necessary edited the report originally created by Lyudmila Santoyo. Narrative 07/09/2025 3:00 PM EDT EXAM: NC MYOCARDIAL PERFUSION PHARMACOLOGIC STRESS MULTIPLE CLINICAL INDICATION: * Dyspnea on exertion (CABELLO); NEEDS TO BE DOBUTAMINE. ACTIVE SEIZURE DISORDER.. TECHNIQUE: According to standard departmental protocol, the patient was injected with 8.9 mCi of TC-99M Sestamibi IV at rest and ungated SPECT myocardial images were obtained. Subsequently, a stress test was performed and 30.5 mCi of TC-99M Sestamibi was injected at peak stress. After 30 to 60 minutes, gated SPECT images were obtained and assessed for myocardial perfusion and left ventricular function. Stress EKG findings were interpreted by cardiology and are reported separately. Please refer to that report in [facility]. COMPARISON: None. FINDINGS: Myocardial Perfusion Zone Defect/Change Basal Inferior Thinning. Regional Wall Motion: Normal regional left ventricular wall motion. Ventricular Size and Global Function: The left ventricular ejection fraction is normal. Normal left ventricular size. LV ejection fraction is 57 %. TID Stress 1.11 TID greater than 1.2-1.25 is generally considered abnormal. Incidental Findings: None Artifacts: Diaphragm. Image Quality: Good. Procedure Note Parth Roberto MD - 07/09/2025 EXAM: NC MYOCARDIAL PERFUSION PHARMACOLOGIC STRESS MULTIPLE CLINICAL INDICATION: * Dyspnea on exertion (CABELLO); NEEDS TO BE DOBUTAMINE.ACTIVE SEIZURE DISORDER.. TECHNIQUE: According to standard departmental protocol, the patient wasinjected with 8.9 mCi of TC-99M Sestamibi IV at rest and ungated SPECTmyocardial images were obtained. Subsequently, a stress test was performedand 30.5 mCi of TC-99M Sestamibi was injected at peak stress. After 30 to60 minutes, gated SPECT images were obtained and assessed for myocardialperfusion and left ventricular function. Stress EKG findings were interpreted by cardiology and are reportedseparately. Please refer to that report in [facility]. COMPARISON: None. FINDINGS: Myocardial Perfusion Zone Defect/Change Basal Inferior Thinning. Regional Wall Motion: Normal regional left ventricular wall motion. Ventricular Size and Global Function: The left ventricular ejectionfraction is normal. Normal left ventricular size. LV ejection fraction is57 %. TID Stress 1.11 TID greater than 1.2-1.25 is generally considered abnormal. Incidental Findings: None Artifacts: Diaphragm. Image Quality: Good. IMPRESSION: 1. Qualitative Findings: Myocardial perfusion images show no definiteevidence of scar or ischemia. Mild posterobasal thinning is not clearlyoutside of normal limits and favored to be due to diaphragmaticattenuation artifact. 2. Left ventricular ejection fraction: 57% 3. Stress EKG findings were interpreted by cardiology and are reportedseparately. Please refer to that report in [facility]. ATTESTATION: I, Dr. Parth Roberto as teaching physician, have reviewed theimages for this case and if necessary edited the report originally createdby Lyudmila Santoyo. us Richar Nettles Arcoleanni DO CV NM CARDIAC Final Result * EAR CERUMEN REMOVAL (07/02/2025 5:49 PM EDT) Other Narrative Oumou Beyer FNP - 07/02/2025 5:49 PM EDT Oumou Beyer FNP 07/02/2025 5:51 PM Cerumen Removal Date/Time: 07/02/2025 5:49 PM Visualization: Otoscopy Cerumen in: Bilateral ears Removed with: Irrigation Patient tolerated procedure well: Yes Comments: NORMAL EXAM AFTER IRRIGATION. PT STATES HE CAN HEAR BETTER [place] Protocol: Verbal consent obtained: Yes Written consent obtained: No Time out: Immediately prior to the procedure, a time out was called to verify that there is a signed consent form and that the correct patient, planned procedure, site and side are consistent with documentation and that necessary equipment and/or blood products are available prior to the start of the case. Oumou Beyer BEAD BUILDER PROCEDURE/MINOR SURGICAL OR DERABLES Final Result * DIRECT LDL (06/30/2025 3:10 PM EDT) Direct LDL 92 <100 mg/dL [facility] [address] Comment: (NOTE) Greatly elevated Triglycerides values (>1200 mg/dL) interfere with the dLDL assay. Desirable range <100 mg/dL for primary prevention; <70 mg/dL for patients with CHD or diabetic patients with > or = 2 CHD risk factors. 06/30/2025 3:10 PM EDT 06/30/2025 3:18 PM EDT Richar Drake DO LAB BLOOD BKR ORDERABLES Lola l Result [facility] [address] [address], [facility] * LFTs (hepatic panel) (06/30/2025 3:10 PM EDT) ALKALINE PHOSPHATASE 105 39 - 117 U/L [facility] TOTAL BILIRUBIN <0.2 0.0 - 1.2 mg/dL [facility] DIRECT BILIRUBIN <0.1 0.0 - 0.2 mg/dL [facility] Bilirubin (Indirect) NOT CALCULATED 0 - 1.5 mg/dL [facility] AST 27 0 - 37 U/L [facility] ALT 25 0 - 40 U/L [facility] TOTAL PROTEIN 6.8 6.5 - 8.0 g/dL [facility] ALBUMIN 4.2 3.9 - 4.8 g/dL [facility] GLOBULIN 2.6 1 - 4.8 g/dL [facility] A/G Ratio 1.62 1.00 - 4.80 RATIO [facility] Blood 06/30/2025 3:10 PM EDT 06/30/2025 3:18 PM EDT Richar Drake DO LAB BLOOD BKR ORDERABLES Lola l Result Performing Organization Address City/[facility] Co de Phone Number [facility] [address] [place] [address] * Zonisamide level (06/30/2025 3:10 PM EDT) ZONISAMIDE 21 10 - 40 mcg/mL [facility] Comment: (NOTE) ADDITIONAL INFORMATION This test was developed and its performance characteristics determined by [facility] in a manner consistent with CLIA requirements. This test has not been cleared or approved by the U.S. Food and Drug Administration. Blood 06/30/2025 3:10 PM EDT 06/30/2025 3:18 PM EDT Marino Valdes MD LAB BLOOD ORDERABLES Final Resul t Performing Organization Address [facility] Co de Phone Number [facility] MED[facility] [address] [place] [address] * Levetiracetam (Keppra) level (06/30/2025 3:10 PM EDT) Levetiracetam 42.6 12.0 - 46.0 mcg/mL [facility] Comment:This test was develo ped and its performance characteristics determined by the [facility]. It has not been cleared or approved by the US Food and Drug Administration. This laboratory is certified under CLIA as qualified to perform high complexity clinical laboratory testing. Blood 06/30/2025 3:10 PM EDT 06/30/2025 3:18 PM EDT Marino Valdes MD LAB BLOOD BKR ORDERABLES Final R esult Performing Organization Address City/[facility]/ZIP Co de Phone Number [address] [address] * Lamotrigine level (06/30/2025 3:10 PM EDT) LAMOTRIGINE 10.0 4.0 - 18.0 mcg/mL [facility] Comment:This test was develo ped and its performance characteristics determined by the [facility]. It has not been cleared or approved by the US Food and Drug Administration. This laboratory is certified under CLIA as qualified to perform high complexity clinical laboratory testing. Blood 06/30/2025 3:10 PM EDT 06/30/2025 3:18 PM EDT Marino Valdes MD LAB BLOOD BKR ORDERABLES Final R esult Performing Organization Address City/[facility]/ZIP Co de Phone Number [address] [address] * Hemoglobin A1c (06/30/2025 3:10 PM EDT) HEMOGLOBIN A1C 5.0 4.3 - 5.8 % [facility] Blood 06/30/2025 3:10 PM EDT 06/30/2025 3:18 PM EDT Richar Drake DO LAB BLOOD BKR ORDERABLES Lola l Result [facility] [address] [place] [address] * Vitamin B12 (06/30/2025 3:10 PM EDT) VITAMIN B12 588 232 - 1,245 pg/mL [facility] Blood 06/30/2025 3:10 PM EDT 06/30/2025 3:18 PM EDT us Marino Valdes MD LAB BLOOD BKR ORDERABLES Final R esult Performing Organization Address [facility]/ZIP Co de Phone Number [address] [address] * (ABNORMAL) Lipid panel (06/30/2025 3:10 PM EDT) HDL 30 mg/dL [facility] Comment: Interpretation <40 mg/dL: Low HDL cholesterol (major risk factor for CHD) Greater than or equal to 60 mg/dL: High HDL cholesterol ( negative risk factor for CHD) HDL - cholesterol is affected by a number of factors, e.g. smoking, excerise, hormones, sex and age. CHOLESTEROL 184 0 - 240 mg/dL [facility] TRIGLYCERIDES 442(H) 30 - 160 mg/dL [facility] LDL NOT CALCULATED 50 - 129 mg/dL [facility] Comment: Unable to calculate due to elevated TRIG of greater than 400. A measured LDL will be performed. CARDIAC RISK RATIO 6.1(H) 3.4 - 5.0 [facility] Blood 06/30/2025 3:10 PM EDT 06/30/2025 3:18 PM EDT us Richar Drake DO LAB BLOOD BKR ORDERABLES Lola l Result Performing Organization Address [facility]/ZIP Co de Phone Number [address] [address] * TTE COMPREHENSIVE (06/30/2025 2:55 PM EDT) Height 173 cm Weight 98 kg Systolic BP 134 mmHg Diastolic BP 72 mmHg Interventricular Septum Thickness 8 6 - 11 mm Left Ventricle Internal Diameter End Diastole 49 42 - 58 mm Left Ventricle Internal Diameter End Systole 31 <40 mm Left Ventricular Outflow Tract Diameter 23.0 mm Left Ventricular Posterior Wall Thickness 8 6 - 11 mm Left Ventricle Ea Lateral Wave Speed 9.3 cm/s Left Ventricle Ea Septal Wave Speed 7.5 cm/s Ejection Fraction 56 50 - 75 Percent Left Atrium Dimension Anterior-Posterior 38 15 - 40 mm Aortic Valve Mean Gradient 5 mmHg Aortic Valve Time Velocity Integral 334.0 mm Aortic Valve Peak Velocity 1.6 m/s Aortic Valve Peak Gradient 10 mmHg Aortic Arch Diameter 25 mm Aortic Sinus Diameter 38 <40 mm Ascending Aorta Diameter 33 <36 mm Inferior Vena Cava Diameter 19 <21 mm Mitral Valve Deceleration Time 243 ms Left Ventricle A Wave Speed 79.6 cm/s Left Ventricle E Wave Speed 64.9 cm/s Pulmonary Valve Peak Velocity 1.0 m/s Pulmonary Valve Peak Gradient 4 mmHg Right Ventricle Basal Diameter 39 25 - 41 mm Tricuspid Valve Peak Velocity 2.8 m/s Raw LV EF% 60 % MV E/E' Tissue Velocity Lateral 6.98 Relative Wall Thickness 0.33 0.22 - 0.42 MV E/A ratio 0.8 MV E/e' septal 8.65 Left Ventricle E/e' Average 7.8 Aortic Valve Prosthetic Peak Gradient 10 mmHg Aorta Sinus Index by Height 2.20 cm/m Aorta Sinus CSA index by Height 6.55 cm2/m Asc Aorta CSA Index by Height 4.94 cm2/m Right Ventricle to Right Atrium Pressure Gradient 31 mmHg Right Ventricle Peak Systolic Pressure (Assuming RAP 10) 41 mmHg MGB CV ECHO TV RVSP (ASSUMING RAP OF 5) 36 mmHg RVSP (Exclusive of RAP) 31 mmHg Pulmonic Valve Prosthetic Peak Gradient 4 mmHg Echo E/Ea 8.65 Body Surface Area 2.11 m2 Left Ventricle indexed to BSA 62.2 g/m2 Aortic Valve Prosthetic Mean Gradient 5 mmHg Aortic Valve Sinus Index by BSA 18 mm/m2 Ascending Aorta Index 16 mm/m2 Ascending Aorta Index 16 mm Aortic Sinus Index 18 mm Ascending Aorta Diameter 16 mm Aortic Valve Sinus Index 1 18 20 - 32 mm AO ASC DIAM BSA INDEX 15.64 Left Atrial Volume Index 21 16 - 34 mL/m2 Right Ventricle Peak Systolic Pressure 34 mmHg GLS 14.0 % Right Ventricle TAPSE 22 >=17 mm Right Ventricle Pulse Doppler S Wave 11.7 >=9.5 cm/s Left Atrial Volume 45 mL Left Atrial Volume Index by Height 26 mL/m Right Atrium Area 14 cm2 Right Atrium Area index 7 cm2/m2 Right Atrium Pressure Estimated 3 mmHg Anatomical Region Laterality Modality Heart Ultrasound Narrative 07/03/2025 1:16 PM EDT Images from the original result were not included. Normal LV size and function EF 55 to 60%. Normal RV size and function. Normal left atrial size. Normal diastolic function. Global longitudinal strain is mildly reduced at 14.6%. No significant valvular heart disease is seen. PA pressure estimation is at the upper limits of normal at 34 mmHg. Compared to prior study from 2019, no major changes. Left Ventricle The left ventricle is normal in size. There is normal wall thickness. There is normal left ventricular systolic function. The LV ejection fraction is 56% (calculated via biplane measurement). Average global longitudinal strain (GLS) is -14.0% (reduced). There are no wall motion abnormalities. LV diastolic function parameters are indeterminate in total. The E/A ratio is 0.8. The e' septal wave velocity is 7.5 cm/s. The e' lateral wave velocity is 9.3 cm/s. The average E/e' ratio is 7.8. Right Ventricle The right ventricle is normal in size. The RV basal dimension is 39 mm. There is normal right ventricular systolic function. TAPSE is 22 mm. RV S' wave is 11.7 cm/s. Left Atrium The left atrium is normal in size. The left atrial volume is 45 mL. There are normal flow patterns in the pulmonary vein. Right Atrium The right atrium is normal in size. The right atrial area is 14 cm2. The IVC is normal in size with normal inspiratory collapse. This is consistent with normal RA pressure. The IVC diameter is 19 mm (normal: <= 21 mm). Hepatic veins are normal in size. Mitral Valve There is mitral valve thickening. There is no mitral stenosis. There is trace mitral regurgitation. Tricuspid Valve The tricuspid valve appears normal. There is no tricuspid stenosis. There is mild tricuspid regurgitation. The RV systolic pressure was calculated at 34 mmHg (using TR peak velocity of 2.8 m/s and assuming an RA pressure of 3 mmHg). Pulmonary pressures are mildly elevated. Aortic Valve The aortic valve is tricuspid. Multiple leaflets are thickened without stenosis. The aortic valve peak velocity is 1.6 m/s. The peak and mean aortic valve gradients are 10 mmHg and 5 mmHg respectively. There is no aortic regurgitation. The aortic sinuses are mildly dilated. The aortic sinus diameter is 38 mm. Pulmonic Valve The pulmonic valve appears normal. Pericardium There is no pericardial effusion. There are no pleural effusions. General Findings The image quality was adequate. Strain performed. Technique(s) used in the evaluation: Multiplane, Color flow Doppler, Spectral Doppler and Epiaortic scan. The predominant rhythm during the study was sinus. Comparison Findings Compared to prior study on 10/24/2019, IAS/IVS The interatrial septum appears normal. There is no evidence of patent foramen ovale (PFO). The interventricular septum appears normal. There is no evidence of a ventricular septal defect. us Richar Nettles Arcoleo DO CV ECHO ORDERABLES Final Resu lt * CT ABDOMEN (ADRENAL MASS) WITHOUT CONTRAST [...] back to the lumbar spine CT from 2018. Hounsfield units without IV contrast measure between 16- 27. The right adrenal gland is normal. Kidneys/Ureters: Bilateral renal cysts. No stone or hydronephrosis. Bowel: Diverticulosis of the colon. No distention or wall thickening. Peritoneum/Retroperitoneum: Partially visualized ORNAMENTAL MACHINE OPERATOR shunt catheter. No masses, pneumoperitoneum, or fluid. Lymph Nodes: Normal. No lymphadenopathy. Vessels: Infrarenal IVC filter, unchanged. 3 x 3.7 cm infrarenal abdominal aortic aneurysm, unchanged. Bones/Soft Tissues: Degenerative changes of the spine. Procedure Note Sabine Lowe MD - 09/30/2024 CT ABDOMEN (ADRENAL MASS) WITHOUT CONTRAST Referring clinician's provided indication for this examination in Epic:Outside Radiology Order; disorder adrenal gland TECHNIQUE: Multidetector-row [...] going backto the lumbar spine CT from 2018. Hounsfield units without IV contrastmeasure between 16- 27. The right adrenal gland is normal. Kidneys/Ureters: Bilateral renal cysts. No stone or hydronephrosis. Bowel: Diverticulosis of the colon. No distention or wall thickening. Peritoneum/Retroperitoneum: Partially visualized ORNAMENTAL MACHINE OPERATOR shunt catheter. Nomasses, pneumoperitoneum, or fluid. Lymph Nodes: Normal. No lymphadenopathy. Vessels: Infrarenal IVC filter, unchanged. 3 x 3.7 cm infrarenal abdominalaortic aneurysm, unchanged. Bones/Soft Tissues: Degenerative changes of the spine. IMPRESSION: 1. Stable 2 x 2.4 cm left adrenal nodule from lumbar spine CT 2019probably representing a benign adenoma. Normal right adrenal gland. 2. Bilateral renal cysts. Stable 3.6 x 3.7 cm fusiform infrarenalabdominal aortic aneurysm. IVC filter. Diverticulosis. us Shelley A Bigda DO IMG CT XSPECIALTY ORDERABLES Fin al Result * ENDOSCOPY, COLON (09/13/2021 10:51 AM EST) Narrative Transcriptions Vianca Stoddard MD - 09/13/2021 10:51 AM EST Patient Name: Venkat Nation Attending MD:: VIANCA STODDARD MD Procedure Date: 09/13/2021 10:51 AM Date of : 1950 Age: 71 Admit Type: Outpatient Gender: Male Room: [place] [address] Referring MD: SHELLEY IZQUIERDO DO Exam Type: Colonoscopy Indications: High risk colon cancer surveillance: Personalhistory of colonic polyps, Last colonoscopy: August 2015 Medications: Monitored Anesthesia Care Procedure: Informed consent was obtained from the patient after discussion of the indications, limitations, alternatives, benefits, and risks of the procedure. Risks specifically discussed include but are not limited to medication reactions, missed lesions, bleeding, perforation, or the need for emergentsurgery. Throughout the procedure, the patient's bloodpressure, pulse, end-tidal CO2, and oxygen saturations were monitored continuously. The Olympus adult variable colonoscope [id number] #3was introduced through the anus and advanced to the terminal ileum, with identification of theappendiceal orifice and IC valve. The colonoscopy was performed without difficulty. The patient tolerated theprocedure well. The quality of the bowel preparation was excellent. Complications: No immediate complications. Estimated blood loss:None. Findings: The terminal ileum appeared normal. Examination of the right colon was repeated in retroflexion and again in NBI. Retroflexion was also performed in the rectum. A 5 mm polyp was found in the ascending colon. The polyp was flat. The polyp was removed with a cold snare. Resection and retrieval were complete. A 4 mm polyp was found in the splenic flexure. The polyp was sessile. The polyp was removed with a cold snare. Resection and retrieval were complete. Multiple diverticula were found in the sigmoidcolon. The exam was otherwise without abnormality. Impression: - The examined portion of the ileum was normal. - One 5 mm polyp in the ascending colon, removedwith a cold snare. Resected and retrieved. - One 4 mm polyp at the splenic flexure, removedwith a cold snare. Resected and retrieved. - Diverticulosis in the sigmoid colon. - The examination was otherwise normal. Recommendation: - Patient has a contact number available for emergencies. The signs and symptoms of potential delayed complications were discussed with thepatient. Return to normal activities tomorrow. Writtendischarge instructions were provided to the patient. - Await pathology results. - Repeat colonoscopy for surveillance based on pathology results. Vianca Stoddard VIANCA STODDARD MD 09/13/2021 11:29:43 AM This report has been signed electronically. Number of Addenda: 0 Note Initiated On: 09/13/2021 10:51 AM Procedure Code(s): --- Professional --- 34287, Colonoscopy, flexible; with removal of tumor(s), polyp(s), or other lesion(s) by snare technique --- Technical --- 73081, Colonoscopy, flexible; with removal of tumor(s), polyp(s), or other lesion(s) by snare technique CPT copyright 2018 [employer]. All rights reserved. The codes documented in this report are preliminary and upon hospice plan administrator reviewmay be revised to meet current compliance requirements. Procedure Date: 09/13/2021 10:51:[address] [place] [address] us Shelley A Bigda DO GI PROCEDURE ORDERABLES Final Re sult * Hepatitis C antibody, qualitative (12/26/2018 11:28 AM EST) HCV Negative Negative [facility] Comment: This is a screening test and should be confirmed with molecular testing Blood 12/26/2018 11:2 8 AM EST 12/26/2018 11:35 AM EST February Michael ENCARNACION LAB BLOOD BKR ORDERABLES Fin al Result [facility] [address] [place] [address] from Last 3 Months or Most Recently Relevant to Health Maintenance Insurance MEDICARE PART A & B [facility] MEDICARE SUPPLEMENT MEDICARE PART A & B [facility] MEDICARE SUPPLEMENT MEDICARE PART A & B [facility] MEDICARE SUPPLEMENT MEDICARE PART A & B [employer] MEDICARE SUPPLEMENT MEDICARE PART A & B [employer] MEDICARE SUPPLEMENT MEDICARE PART A & B [facility] MEDICARE SUPPLEMENT MEDICARE PART A & B [facility] MEDICARE SUPPLEMENT MEDICARE PART A & B [facility] MEDICARE SUPPLEMENT MEDICARE PART A & B [facility] MEDICARE SUPPLEMENT Advance Directives For more information, please contact: [phone] (9AM - 5PM [facility], Sunday-Sunday) * Full Code (Confirmed) (Latest Code Status on File) Date Activated Date Inactivated Comments 06/28/2018 1:58 AM 06/30/2018 2:38 PM Question Answer Comments Code Status Confirmed With: Patient Care Teams Scientific Informatics Leader Relationship Specialty Start Date End Date Shelley Izquierdo DO PCP - General 11/08/17 Additional Source Comments The information contained in this document represents components of the legal health record. It is not the complete legal health record.[facility]
--- OUTSIDE RECORDS SUMMARY | 2025-09-14 14:30 | XMS_ITS | Encounter Summary ---
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 [address] [place] [id number] [email or web address] documented as of this encounter Results * US Kidneys (02/20/2024 10:39 AM EDT) Anatomical Region Laterality Modality Abdomen, Kidney Ultrasound 02/21/2024 11:0 1 AM EDT Narrative 02/21/2024 12:57 PM EDT RENAL ARTERY DUPLEX History: Follow-up renal artery stenosis.. COMPARISON: CT angiography abdomen 02/04/2024. TECHNIQUE: A duplex ultrasound evaluation of the renal arteries/veins was performed using abad scale, color duplex and spectral Doppler analysis. Velocity (cm/s) Aorta: 97 RIGHT RENAL ARTERY (cm/s) Proximal, Mid and Distal: 85, 116 and 122 Proximal renal artery/Aortic Ratio: 0.88 Stenosis: No significant stenosis predicted. RIGHT PARENCHYMA Resistance Index (RI): Upper, Mid and Lower Pole: 0.7, 0.7 and 0.6 Right kidney size: 6.3 x 12.8 cm LEFT RENAL ARTERY (cm/s) Proximal, Mid and Distal: 90, 93 and 110 Proximal renal artery/Aortic Ratio: 0.93 Stenosis: No hemodynamically significant stenosis predicted. LEFT PARENCHYMA Resistance Index (RI): Upper, Mid and Lower Pole: 0.7, 0.7 and 0.7 Left kidney size: 5.6 x 11.9 cm FINDINGS: Simple cyst right lower pole laterally measuring up to 1.6 cm transverse diameter. No solid, suspicious mass, discernible calculi or hydronephrosis. IMPRESSIONS: 1. No evidence of flow limiting renal artery stenosis. 2. No concerning incidental abnormality. Procedure Note Neville Altamirano MD - 02/21/2024 RENAL ARTERY DUPLEX History: Follow-up renal artery stenosis.. COMPARISON: CT angiography abdomen 02/04/2024. TECHNIQUE: A duplex ultrasound evaluation of the renal arteries/veins was performedusing abad scale, color duplex and spectral Doppler analysis. Velocity (cm/s) Aorta: 97 RIGHT RENAL ARTERY (cm/s) Proximal, Mid and Distal: 85, 116 and 122 Proximal renal artery/Aortic Ratio: 0.88 Stenosis: No significant stenosis predicted. RIGHT PARENCHYMA Resistance Index (RI): Upper, Mid and Lower Pole: 0.7, 0.7 and 0.6 Right kidney size: 6.3 x 12.8 cm LEFT RENAL ARTERY (cm/s) Proximal, Mid and Distal: 90, 93 and 110 Proximal renal artery/Aortic Ratio: 0.93 Stenosis: No hemodynamically significant stenosis predicted. LEFT PARENCHYMA Resistance Index (RI): Upper, Mid and Lower Pole: 0.7, 0.7 and 0.7 Left kidney size: 5.6 x 11.9 cm FINDINGS: Simple cyst right lower pole laterally measuring up to 1.6 cm transversediameter. No solid, suspicious mass, discernible calculi or hydronephrosis. IMPRESSIONS: 1. No evidence of flow limiting renal artery stenosis. 2. No concerning incidental abnormality. Sarai MAIER [facility] Final Resul t documented in this encounter Visit Diagnoses Diagnosis Atherosclerosis of renal artery- Primary Atherosclerosis of renal artery documented in this encounter Care Teams Distribution Clerk Relationship Specialty Start Date End Date Praneeth Barrow DO PCP - General 11/08/17 documented as of this encounter Additional Source Comments The information contained in this document represents components of the legal health record. It is not the complete legal health record.[facility]
--- OUTSIDE RECORDS SUMMARY | 2025-09-14 14:30 | XMS_ITS | Encounter Summary ---
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 Not on file documented as of this encounter Plan of Treatment Upcoming Encounters Date Type Department Care Team (Late st Contact Info) Description 11/17/2025 12:45 PM EST Office Visit [facility] 22 [facility] 3rd Floor, [address] [place] [address] Richar Drake, 22 [facility] [address] [place] [address] [email or web address] documented as of this encounter Results * XR PELVIS 1-2 VIEW (03/14/2024 2:59 PM EDT) Anatomical Region Laterality Modality Pelvis Computed Radiogr aphy 03/19/2024 12:1 0 AM EDT Impressions 03/19/2024 12:11 AM EDT Moderate hip osteoarthritis bilaterally. No acute fracture. Calcific enthesopathy of the gluteal tendon origins and insertions. Narrative 03/19/2024 12:11 AM EDT XR PELVIS 1-2 VIEW Referring clinician's provided indication for this examination in [facility]: Outside Radiology Order; fall REQUESTED INDICATION: Outside Radiology Order; fall COMPARISON: None FINDINGS: PELVIS: Pelvic ring intact. No displaced fracture. Degenerative changes of the lower lumbar spine, sacroiliac joints, and pubic symphysis. Gluteal enthesopathy at the iliac crests. SOFTWARE TOOLS DEVELOPER shunt catheter coils in the left lower quadrant. RIGHT HIP: Moderate joint space narrowing with subchondral sclerosis and bony proliferative change. Gluteal enthesopathy at the greater trochanter. Calcific enthesopathy. LEFT HIP: Moderate hip joint space narrowing with subchondral sclerosis and bony proliferative change. Gluteal enthesopathy at the greater trochanter. Procedure Note Lidya Romo MD - 03/19/2024 XR PELVIS 1-2 VIEW Referring clinician's provided indication for this examination in [facility]:Outside Radiology Order; fall REQUESTED INDICATION: Outside Radiology Order; fall COMPARISON: None FINDINGS: PELVIS: Pelvic ring intact. No displaced fracture. Degenerative changes ofthe lower lumbar spine, sacroiliac joints, and pubic symphysis. Glutealenthesopathy at the iliac crests. SOFTWARE TOOLS DEVELOPER shunt catheter coils in the leftlower quadrant. RIGHT HIP: Moderate joint space narrowing with subchondral sclerosis andbony proliferative change. Gluteal enthesopathy at the greater trochanter.Calcific enthesopathy. LEFT HIP: Moderate hip joint space narrowing with subchondral sclerosisand bony proliferative change. Gluteal enthesopathy at the greatertrochanter. IMPRESSION: Moderate hip osteoarthritis bilaterally. No acute fracture. Calcific enthesopathy of the gluteal tendon origins and insertions. Sarai MAIER IMG XR PELVIS Final Resul t documented in this encounter Visit Diagnoses Diagnosis Unspecified fall, initial encounter Unspecified fall, initial encounter- Primary documented in this encounter Care Teams Brassiere Cup Mold Cutter Relationship Specialty Start Date End Date Praneeth Barrow DO [email or web address] PCP - General 11/08/17 documented as of this encounter Additional Source Comments The information contained in this document represents components of the legal health record. It is not the complete legal health record.[facility]
--- OUTSIDE RECORDS SUMMARY | 2025-09-14 14:30 | XMS_ITS | Encounter Summary ---
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 Not on file documented as of this encounter Plan of Treatment Upcoming Encounters Date Type Department Care Team (Late st Contact Info) Description 11/17/2025 12:45 PM EST Office Visit [facility] 22 [facility] 3rd Floor, [address] [place] [address] Richar Drake DO 22 [facility] [address] [place] [address] documented as of this encounter Visit Diagnoses Not on filedocumented in this encounter Care Teams Application Support Intern Relationship Specialty Start Date End Date Praneeth Barrow DO PCP - General 11/08/17 documented as of this encounter Additional Source Comments The information contained in this document represents components of the legal health record. It is not the complete legal health record.[facility]
--- OUTSIDE RECORDS SUMMARY | 2025-09-14 14:30 | XMS_ITS | Encounter Summary ---
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 Not on file documented as of this encounter Plan of Treatment Upcoming Encounters Date Type Department Care Team (Late st Contact Info) Description 11/17/2025 12:45 PM EST Office Visit [facility] [address] [facility] 3rd Floor, [address] [place] [address] Richar Drake DO [address] [facility] [address] [place] [id number] [email or web address] documented as of this encounter Visit Diagnoses Diagnosis Superficial foreign body, right foot, initial encounter- Primary documented in this encounter Care Teams Motion Picture Projectionist Relationship Specialty Start Date End Date Praneeth Barrow DO PCP - General 11/08/17 documented as of this encounter Additional Source Comments The information contained in this document represents components of the legal health record. It is not the complete legal health record.[facility]
--- OUTSIDE RECORDS SUMMARY | 2025-09-14 14:30 | XMS_ITS | Continuity of Care Document ---
Author Organization [facility] Address [address] [facility] [place] [address] Assessment No assessment recorded. Plan of Treatment Reminders Order Date Submit Date Provider Last Modified By Organization Details Last Modified Time Details Appointments FOLLOW UP 15 2024 11:15A DARRION DEE Not available Not available Not available FOLLOW UP 15 2025 11:45A DARRION DEE Not available Not available Not available Lab CMP, serum or plasma 2024 025 [facility], [address] [place] [address], [id number], 09/14/2025 11:59:20 CBC w/ auto diff 2024 025 [facility], [address] [place] [address], [id number], 09/14/2025 11:59:21 hemoglobi n A1c, QN, blood 2024 025 [facility], [address] [place] [address], [id number], 09/14/2025 11:59:21 PSA, serum or plasma 2024 025 [facility], [address] [place] [address], [id number], 09/14/2025 11:59:20 Referral pulmonolo gist referral - historica l patient, needs appt 2024 KAR Toledo MD, [address] [place], [address], 09/14/2025 12:24:12 Procedures None recorded. Surgeries None recorded. Imaging None recorded. Medication Orders prednison e 10 mg tablet [address] [facility][id number], [address] [place], [place], [id number], 09/14/2025 11:43:09 albuterol sulfate HFA 90 mcg/actua tion aerosol inhaler [address] [facility] #[id number], [address] [place], [place], [id number], 09/14/2025 11:43:06 Zithromax Z-Chan 250 mg tablet [address] [facility] #59956, [address] [place], [place], [id number], 09/14/2025 11:43:10 Trelegy Ellipta 200 mcg-62.5 mcg-25 mcg powder for inhalatio n [address] [facility] #[id number], [address] [place], [place], [id number], 09/14/2025 11:43:05 Patient TargetsNo targets recorded. Patient InstructionsNo instructions recorded. 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 / MSD Not Available [facility] 09:29:[facility] Traumati c brain injury 177357724 Active 2017 Not Available [facility] 3 09:29:41 Seizure disorder 398904986 Active 2017 vagus nerve stimulato r implant DARRION LEON [address] [place], [address], [facility] 5 11:30:14 Chronic obstruct marquita pulmonar y disease 85776515 Active 2017 Not Available [facility] 3 09:29:41 Asthma 125323038 Active 2017 Not Available [facility] 3 09:29:41 Adrenal cyst 874503063 Active 2017 Not Available [facility] 3 09:29:41 Obstruct marquita sleep apnea syndrome 42892662 Active 2017 [facility] Available [facility] 3 09:29:41 Hypertri glycerid emia 753202625 Active 2017 [facility] Available [facility] 3 09:29:41 [facility] hyperten arsenio 48240896 Active 2017 Not Available [facility] 3 09:29:41 Abdomina l aortic aneurysm 362926066 Active 2017 09/24/18 =4.2 cm, repeat 1 year Not Available [facility] 3 09:29:41 Gastroes ophageal reflux disease 090837878 Active 2018 Not Available [facility] 3 09:29:41 Acute bronchit is 57922108 Active 2021 DARRION LEON [address] [place], [address], [facility] 5 10:23:48 Cough 47156423 Active 2021 Not Available [facility] 3 09:29:41 Hydrocep halus 456916604 Active 2021 Not Available [facility] 3 09:29:41 Impacted cerumen of bilatera l ears 66377049806 95897 Active 2021 Not Available [facility] 3 09:29:41 Coronary arterios clerosis 34290673 Active 2021 Not Available [facility] 3 09:29:41 Fracture of humerus 67151639 Active 2022 Not Available [facility] 3 09:29:41 Abnormal gait 71108619 Active 2022 Not Available [facility] 3 09:29:41 Mood disorder 99261064 Active 2022 Not Available [facility] 3 09:29:41 Lumbago with sciatica 533691491 Active 2022 Not Available [facility] 3 09:29:41 Lumbago with sciatica 543187501 Active 2022 Not Available [facility] 3 09:29:41 Pain of right hip joint 20302595574 9102 Active 2022 Not Available [facility] 3 09:29:41 Pain of right knee joint 13340029113 4100 Active 2022 Not Available [facility] 3 09:29:41 Impaired fasting glycemia 896559415 Active 2023 DARRION LEON [address] [place], [address], [facility] 4 10:16:32 Stenosis of left renal artery 38090511015 660939 Active 2023 DARRION LEON [address] [place], [address], [facility] 4 11:00:48 Foreign body in skin of foot 169992396 Active 2023 DARRION LEON [address] [place], [address], [facility] 4 11:05:56 Benign prostati c hyperpla ernesto 664586702 Active 2023 DARRION LEON [address] [place], [address], [facility] 4 13:33:50 Lesion of brain 925314666 Active 2023 DARRION LEON [address] [place], [address], [facility] 4 15:48:38 COVID-19 282603326 Active 2023 DARRION LEON [address] [place], [address], [facility] 4 11:19:55 Expirato ry wheezing 9647140 Active 2024 DARRION LEON [address] [place], [address], [facility] 5 11:59:26 Acute exacerba tion of chronic obstruct marquita pulmonar y disease 340416459 Active 2024 DARRION LEON [address] [place], [address], [facility] 5 12:02:02 Streptoc occal sore throat 57380644 Active 2024 DARRION LEON [address] [place], [address], [facility] 5 16:27:19 Problem Notes None recorded. Procedures Surgical History Date Name Laterality Status Provider Name and Address Organization Details Recorded Time 10/24/20 22 Cerumen Removal completed DARRION LEON [address] [place], [address], [facility] 10/24/2022 10:00:54 03/11/20 21 Cerumen Removal completed DARRION LEON [address] [place], [address], [facility] 03/11/2021 15:20:41 10/15/20 18 Nebulizer tx completed NOÉ Bartholomew [address] [place], [address], [facility] 10/15/2018 09:46:53 09/02/20 15 Colonoscopy completed Nimisha Delgado [facility] 12/16/2018 14:42:41 Imaging Results None recorded. Procedure Notes None recorded. Medical Equipment None Reported. Allergies No known drug allergies Medications Name Sig Start Date Stop Date Status Note LastModified by Organization Details LastModified Time cyclobenzap rine 10 mg tablet TAKE 1 TABLET BY MOUTH EVERYDAY AT BEDTIME 12/02 completed Not Available Not Available Not Available amoxicillin 500 mg capsule TAKE 4 TABLETS BY MOUTH ONE HOUR PRIOR TO THORACIC SPINE PROCEDURE 09/11 completed Not Available Not Available Not Available atorvastati n 40 mg tablet TAKE 1 TABLET BY MOUTH EVERY DAY active Not Available Not Available No t Available prednisone 10 mg tablet take 5 tabs x 3 daystake 4 tabs x 3 daystake 3 tabs x 3 daystake 2 tabs x 3 daystake 1 tabs x 3 days 2024 active Not Available Not Available Not Avai lable atenolol 100 mg tablet TAKE 1 TABLET BY MOUTH EVERY DAY 07/31 completed Not Available Not Available Not Available hydrocodone 5 mg-acetamin ophen 325 mg tablet Take 1 tablet every 8 hours by oral route as needed for 7 days. 04/30 completed Not Available Not Available Not Available sertraline 100 mg tablet TAKE 1 & 1/2 TABLETS BY MOUTH ONCE A DAY 2024 active Not Available Not Available Not Avai lable atenolol 25 mg tablet TAKE 1 TABLET BY MOUTH EVERY DAY NEEDS APPT FOR FURTHER REFILLS. CALL OFFICE 09/14 completed Not Available Not Available Not Available Zithromax Z-Chan 250 mg tablet TAKE 2 TABLETS (500 MG) BY ORAL ROUTE ONCE DAILY FOR 1 DAY THEN 1 TABLET (250 MG) BY ORAL ROUTE ONCE DAILY FOR 4 DAYS 2024 active Not Available Not Available Not Avai lable ciprofloxac in 500 mg tablet TAKE 1 TABLET BY MOUTH EVERY 12 HOURS FOR 7 DAYS 04/28 completed Not Available Not Available Not Available sulfamethox azole 800 mg-trimetho prim 160 mg tablet TAKE 1 TABLET BY MOUTH TWICE A DAY 07/11 completed Not Available Not Available Not Available Nicotrol 10 mg inhalation cartridge 07/02 completed Not Available Not Available Not Available tramadol 50 mg tablet Take 2 tablets every 8 hours by oral route. 12/02 completed Not Available Not Available Not Available TobraDex 0.3 %-0.1 % eye ointment APPLY TO BOTH LIDS ONCE DAILY AT BED TIME FOR ONE WEEK 06/18 completed Not Available Not Available Not Available Gentak 0.3 % (3 mg/gram) eye ointment APPLY A SMALL AMOUNT (1/2 INCH) TO THE LOWER LID OF THE AFFECTED EYE(S) BY OPHTHALMI C ROUTE 2 TIMES PER DAY 12/02 completed Not Available Not Available Not Available prednisone 10 mg tablets in a dose pack 40 mg x 3 days30 mg x 1 day20 mg x 1 daythen resume prior prescript ion 10/15 completed Not Available Not Available Not Available Flarex 0.1 % eye drops,suspe nsion INSTILL 1 DROPP IN BOTH EYES EVERY OTHER DAY 06/18 completed Not Available Not Available Not Available zonisamide 100 mg capsule TAKE 2 CAPSULES (200 MG TOTAL) BY MOUTH 2 TIMES A DAY. active Not Available Not Available No t Available alprazolam 0.5 mg tablet TAKE 1 TABLET BY MOUTH AN HOUR PRIOR TO PROCEDURE . NO DRIVING WHILE TAKING THIS MEDICATIO N 09/14 completed Not Available Not Available Not Available amoxicillin 875 mg tablet TAKE 1 TABLET BY MOUTH EVERY 12 HOURS FOR 10 DAYS 09/14 completed Not Available Not Available Not Available prednisolon e acetate 1 % eye drops,suspe nsion INSTILL 1 DROP INTO BOTH EYES TWICE A DAY active Not Available Not Available No t Available benzonatate 100 mg capsule TAKE 1 CAPSULE BY MOUTH THREE TIMES A DAY NEEDED FOR 7 DAYS 06/18 completed Not Available Not Available Not Available doxycycline monohydrate 100 mg capsule TAKE 1 CAPSULE BY MOUTH TWO TIMES A DAY 06/18 completed Not Available Not Available Not Available Advair Diskus 250 mcg-50 mcg/dose powder for inhalation Inhale 1 puff twice a day by inhalatio n route for 30 days. 05/03 completed Not Available Not Available Not Available Advair Diskus 500 mcg-50 mcg/dose powder for inhalation Inhale 1 puff twice a day by inhalatio n route for 30 days. 05/03 completed Not Available Not Available Not Available gabapentin 300 mg capsule TAKE 1 CAPSULE BY MOUTH EVERY EVENING active Not Available Not Available No t Available sertraline 25 mg tablet TAKE 1 TABLET BY MOUTH EVERY DAY active Not Available Not Available No t Available omeprazole 20 mg capsule,del ayed release TAKE 1 CAPSULE BY MOUTH EVERY DAY active Not Available Not Available No t Available budesonide 0.5 mg/2 mL suspension for nebulizatio n 06/18 completed Not Available Not Available Not Available montelukast 10 mg tablet TAKE 1 TABLET BY MOUTH EVERYDAY AT BEDTIME 09/14 completed Not Available Not Available Not Available codeine 10 mg-guaifene sin 100 mg/5 mL oral liquid Take 10 mL every 4 hours by oral route for 7 days. 04/28 completed Not Available Not Available Not Available levetiracet am 750 mg tablet TAKE 1 TABLET BY MOUTH TWICE A DAY active Not Available Not Available No t Available gabapentin 100 mg capsule TAKE 1 CAPSULE BY MOUTH EVERY EVENING 09/14 completed Not Available Not Available Not Available lorazepam 1 mg tablet TAKE 1 TABLET (1 MG TOTAL) BY MOUTH DAILY NEEDED FOR SEIZURES. active Not Available Not Available No t Available diazepam 10 mg tablet 12/02 completed Not Available Not Available Not Available levofloxaci n 500 mg tablet Take 1 tablet every 24 hours by oral route for 7 days. 01/02 completed Not Available Not Available Not Available methylpredn isolone 4 mg tablets in a dose pack FOLLOW PACKAGE DIRECTION S 09/14 completed Not Available Not Available Not Available albuterol sulfate HFA 90 mcg/actuati on aerosol inhaler TAKE 2 PUFFS BY MOUTH EVERY 4 HOURS 2024 active Not Available Not Available Not Avai lable lisinopril 40 mg tablet TAKE 1 TABLET BY MOUTH EVERY DAY 05/03 completed Not Available Not Available Not Available doxycycline hyclate 100 mg tablet 12/17 completed Not Available Not Available Not Available lamotrigine 100 mg tablet 07/02 completed Not Available Not Available Not Available naproxen 500 mg tablet Take 1 tablet twice a day by oral route as needed for 15 days. 05/03 completed Not Available Not Available Not Available tobramycin 0.3 %-dexametha sone 0.1 % eye drops,suspe nsion PLEASE SEE ATTACHED FOR DETAILED DIRECTION S 06/18 completed Not Available Not Available Not Available oxycodone 5 mg tablet TAKE 1 TABLET THREE TIMES A DAY NEEDED FOR PAIN DO NOT DRIVE WHILE TAKING THIS MEDICATIO N 06/18 completed Not Available Not Available Not Available neomycin 3.5 mg/g-polymy adrián B 10,000 unit/g-dexa meth 0.1 % eye oint APPLY TO THE LOWER EYELIDS OF BOTH EYES EVERY DAY 09/14 completed Not Available Not Available Not Available Adult Low Dose Aspirin 81 mg tablet,ellis yed release Take 1 tablet every day by oral route. active Not Available Not Available No t Available cyclobenzap rine 5 mg tablet 01/29 completed Not Available Not Available Not Available Restasis 0.05 % eye drops in a dropperette APPLY ONE DROP TO EACH EYE TWICE DAILY. 09/14 completed Not Available Not Available Not Available bromfenac 0.09 % eye drops INSTILL 1 DROP INTO LEFT EYE ONCE DAILY 09/14 completed Not Available Not Available Not Available lorazepam 05/03 completed Not Available Not Available Not Available levetiracet am 1,000 mg tablet TAKE 1 TABLET BY MOUTH TWICE A DAY 09/14 completed Not Available Not Available Not Available lamotrigine ER 50 mg tablet,exte nded release 24 hr TAKE 1 TABLET BY MOUTH EVERY 24 HOURS active Not Available Not Available No t Available lamotrigine ER 300 mg tablet,exte nded release 24 hr TAKE 2 TABLETS (600 MG TOTAL) BY MOUTH ONCE A DAY. active Not Available Not Available No t Available Chantix Starting Month Box 0.5 mg (11)-1 mg (42) tablets in dose pack Take 1 startr pk by oral route as directed. 05/03 completed Not Available Not Available Not Available Trelegy Ellipta 100 mcg-62.5 mcg-25 mcg powder for inhalation TAKE 1 PUFF BY MOUTH EVERY DAY 09/14 completed Not Available Not Available Not Available Shingrix (PF) 50 mcg/0.5 mL intramuscul ar suspension, kit 05/02 completed Not Available Not Available Not Available baclofen 5 mg tablet TAKE 1 TABLET BY MOUTH EVERY DAY NEEDED MUSCLE SPASM active Not Available Not Available No t Available Fluzone High-Dose Quad (PF) 240 mcg/0.7 mL IM syringe PHARMACY ADMINISTE RED 05/02 completed Not Available Not Available Not Available Trelegy Ellipta 200 mcg-62.5 mcg-25 mcg powder for inhalation Inhale 1 puff every day by inhalatio n route as directed for 30 days. 2024 active Not Available Not Available Not Avai lable Paxlovid 300 mg (150 mg x 2)-100 mg tablets in a dose pack Take 1 dose pk by oral route. 09/14 completed Not Available Not Available Not Available Vitals Date Recorded Body height Body mass index (BMI) Body weight Oxygen saturation Oxygen saturation in Arterial blood by Pulse oximetry Heart rate Systolic And Diastolic Provider Name and Address Organization Details Last Updated DateTime 5 172.09 cm 32.5 kg/m2 94410.5 8 g 97 % 97 % 80 /min 116/58 mm[Hg] Ladi Klein [facility] 5 11:24:32 Social History Question Answer Notes LastModified by Organizat ion Details LastModified Time Tobacco Smoking Status Current Every Day Smoker Not Available [facility] 09/07/2020 03:36:23 What Was The Date Of Your Most Recent Tobacco Screening? 09/14/2025 [email or web address] Information not available 09/14/2025 How Much Tobacco Do You Smoke? 0.25 PPD [email or web address] Information not available 07/25/2023 How Many Years Have You Smoked Tobacco? 50 [id number] Information not available 09/07/2020 Sex: Unknown Functional Status Question Answer Note LastModified by Organization D etails LastModified Time Do you or have you ever used any other forms of tobacco or nicotine? No [email or web address] Information not available 10/05/2023 Mental Status None recorded. Family History Relationship Description Onset Age of this Age Resolved Age Notes LastModified by Organization Details LastModified Time Brother Carcinoma of prostate [email or web address] Not available 08/27 12:19:52 Medical History No medical history recorded. Immunizations Vaccine Type Date Status Note Provider Nam e and Address Organization Details Recorded Time pneumococcal, unspecified formulation 4 completed Nimisha gomez [facility] 12/17/2018 11:04:23 Influenza, split virus, quadrivalent, preservative 9 completed Nimisha gomez [facility] 12/17/2018 11:04:23 Influenza, split virus, quadrivalent, preservative 0 completed Jann gomez [facility] 09/03/2020 11:16:13 zoster, unspecified formulation 0 completed Jann gomez [facility] 09/03/2020 11:16:26 COVID-19, mRNA, LNP-S, PF, 30 mcg/0.3 mL dose 1 completed Praneeth Barrow, [address], [address], [facility] 01/08/2021 19:31:12 COVID-19, mRNA, LNP-S, PF, 30 mcg/0.3 mL dose 1 completed Praneeth Barrow, [address], [address], [facility] 02/05/2021 21:37:36 Past Encounters Encounter ID Performer Location Encounter Start Date Encounter Closed Date Diagnosis/Indication Diagnosis SNOMED-CT Code Diagnosis ICD10 Code Diagnosis IMO Codes Diagnosis Note [id number] Praneeth Barrow [facility] [address] [place] [address],[place] [address] 09/14/2025 11:12:33 09/14/2025 12:01:49 Depression screening 259123123 Z13.31 Seizure disorder 8775586 02 G40.909 90647 stable Mood disorder 02726441 F 39 will increase to 175 mg Essential hypertension 44334750 I10 BP low, recommende d d/c the atenolol at this time Benign pro static hyperplasia 259213777 N40.1 needs PSA rechecked Expiratory wheezing 9763 007 R06.2 start on pred taper and amox Asthma 437010015 J45.20 needs refill of the singulairt relegy needs to be restarted Chronic ob structive pulmonary disease 72220481 J41.0 put in new referral Health Concerns Section Related Observation LastModified by Organization Detai ls LastModified Time None Recorded Concern Status LastModified by Organization Details LastModified Time None Recorded Payers Encounter Date Sequence Insurance Name Policy Number Policy Crum Covered Member ID Crum Member ID Guarantor Name 09/14/2025 2 [facility] ([facility]DEMNITY) [id number] [employer] [id number] [employer] 09/14/2025 1 MEDICARE [place]: [facility] [email or web address] [id number] [employer] Notes Date Note Type Note Provider Name a nd Address Organization Details Recorded Time 09/14/2025 text/html ROS as noted in the HPI f/u medication check the patient is here for med check his BP has been running low, the patient reports that he is very fatigued, sleeping a lot, recommended holding the atenolol to see if it improves mood is stable, no major changes per his (who accompanies him during his visits) the patient is having more breathing issues again, hasn't seen his pulm in a few years and stopped taking his inhalers, because he didn't want them anymore, discussed the importance with following with his specialists and using his inhalers new ones ordered, will monitor his use of themhas cardio f/u in Nov to review tests saw neurology recently, his levels were normal in June CT chest was stable, will repeat in Dec 2025 DARRION LEON [address] [place] [address], [place], [address], [facility] 09/14/2025 13:01:28
--- OUTSIDE RECORDS SUMMARY | 2025-09-14 14:30 | XMS_ITS | Encounter Summary ---
Author Organization [facility] Address [address] [place] [address] Phone Care Team Providers Care Doctor Of Naprapathic Medicine Name Role Phone NitacecillePraneeth DO Primary Care Provider [phone] Reason for Referral * Outpatient Procedure - Closed Specialty Diagnoses / Procedures Referred By Geri austin Referred To Contact Radiology Diagnoses Atherosclerosis of renal artery Procedures US Renal Artery/ Veins Duplex Sarai Link PA [address] [facility] [place] [address] Phone: tel: fax: Referral ID Status Reason Start Date Expiration Date Visits Re quested Visits Authorized [id number] Closed 02/12/2024 02/11/2025 1 1 Encounter Details Date Type Department Care Team (Latest Contact Info) Description 02/12/2024 Transcribe Orders Virtual Department [address] [place] [address] Sarai Link PA [address] [place] [address] [place] [address] Atherosclerosis of renal artery (Primary Dx) Social [...] 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 Not on file Not on file documented as of this encounter Plan of Treatment Upcoming Encounters Date Type Department Care Team (Late st Contact Info) Description 11/17/2025 12:45 PM EST Office Visit [facility] [address] [facility] 3rd Floor, [address] [place], [place] [id number] Richar Drake DO [address] [facility] [address] [place] [address] [email or web address] documented as of this encounter Results * US RENAL ARTERIES AND VEINS DUPLEX COMPLETE (02/20/2024 10:37 AM EDT) Anatomical Region Laterality Modality Abdominal Vasculature Ultrasound 02/21/2024 11:0 1 AM EDT Narrative [...] artery stenosis. 2. No concerning incidental abnormality. us Sarai Jann MAIER IMG US ABDOMEN Final Resul t documented in this encounter Visit Diagnoses Diagnosis Atherosclerosis of renal artery- Primary Atherosclerosis of renal artery documented in this encounter Care Teams Doctor Of Naprapathic Medicine Relationship Specialty Start Date End Date Praneeth Barrow DO [email or web address] PCP - General 11/08/17 documented as of this encounter Additional Source Comments The information contained in this document represents components of the legal health record. It is not the complete legal health record.[facility]
--- OUTSIDE RECORDS SUMMARY | 2025-09-14 14:30 | XMS_ITS | Encounter Summary ---
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 Not on file Not on file documented as of this encounter Plan of Treatment Upcoming Encounters Date Type Department Care Team (Late st Contact Info) Description 11/17/2025 12:45 PM EST Office Visit [facility] 22 [facility] 3rd Floor, [address] [place] [address] Richar Drake, [address] [facility] [address] [place] [address] documented as of this encounter Results * Sedimentation rate (ESR) (09/25/2023 12:22 PM EST) Pathologist [facility] ESR 18 0 - 20 mm/h [facility] Blood 09/25/2023 12:2 2 PM EST 09/25/2023 12:27 PM EST Maribel MAIER LAB BLOOD BKR ORDE RABLES Final Result [address] [address] * C-Reactive Protein (09/25/2023 12:22 PM EST) C REACTIVE PROTEIN 3.5 0.0 - 4.0 mg/L [facility] Blood 09/25/2023 12:2 2 PM EST 09/25/2023 12:27 PM EST Maribel MAIER LAB BLOOD BKR ORDE RABLES Final Result [address] [address] * (ABNORMAL) CBC (09/25/2023 12:22 PM EST) WBC 7.69 4.00 - 11.00 K/uL [facility] RBC 4.07 3.90 - 5.69 M/uL [facility] HGB 14.3 12.4 - 17.3 g/dL [facility] HCT 41.3 37.0 - 51.0 % [facility] PLT 142 140 - 430 K/uL [facility] MCV 101.5(H) 78.0 - 97.0 fL [facility] MCH 35.1(H) 25.0 - 33.0 pg [facility] MCHC 34.6 32.0 - 36.0 g/dL [facility] RDW 12.1 11.0 - 15.0 % [facility] MPV 9.6 8.4 - 12.8 fl [facility] Blood 09/25/2023 12:2 2 PM EST 09/25/2023 12:27 PM EST Maribel MAIER LAB BLOOD BKR JAIME WRIGHT Final Result Performing Organization Address City/State/[facility] Co de Phone Number [address] [address] documented in this encounter Visit Diagnoses Diagnosis Pain and swelling of left forearm- Primary documented in this encounter Care Teams Whanau Support Worker Relationship Specialty Start Date End Date Praneeth Barrow DO [email or web address] PCP - General 11/08/17 documented as of this encounter Additional Source Comments The information contained in this document represents components of the legal health record. It is not the complete legal health record.[facility]
--- OUTSIDE RECORDS SUMMARY | 2025-09-14 14:30 | XMS_ITS | Encounter Summary ---
Author Organization [facility] Address [address] [place] [address] Phone Care Team Providers Care Adult Health Clinical Nurse Specialist Name Role Phone NitaPraneeth oden Yoon PRICE Primary Care Provider [phone] Reason for Referral * MRI/CAT Scan - Closed Specialty Diagnoses / Procedures Referred By Geri austin Referred To Contact Radiology Diagnoses S/P ASSOCIATE PARTNER shunt Headache disorder Procedures CT Head Marino Valdes MD Phone: tel: fax: [email or web address] Referral ID Status Reason Start Date Expiration Date Visits Re quested Visits Authorized [id number] Closed 09/24/2024 09/24/2025 1 1 Encounter Details Date Type Department Care Team (Latest Contact Info) Description 09/24/2024 Transcribe Orders Virtual Department [address] [place] [address] Marino Valdes MD [address] [facility], [address] [place] [address] [email or web address] S/P ASSOCIATE PARTNER shunt (Primary Dx); Headache disorder Social History Tobacco Use Types Packs/Day Years [...] 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 file Not on file documented as of this encounter Plan of Treatment Upcoming Encounters Date Type Department Care Team (Late st Contact Info) Description 11/17/2025 12:45 PM EST Office Visit [facility] 22 [facility] 3rd Floor, [address] [place] [address] Richar Drake, 22 [facility] [address] [place] [phone] [email or web address] documented as of this encounter Results * CT HEAD WITHOUT CONTRAST (10/04/2024 9:33 AM EST) Anatomical Region Laterality Modality Head Computed Tomogra phy 10/07/2024 9:13 AM EST Impressions 10/07/2024 9:23 AM EST 1. Stable positioning of a right frontal approach ASSOCIATE PARTNER shunt catheter, with stable ventricular size. 2. Multifocal areas of encephalomalacia. 3. No acute territorial infarct or intracranial hemorrhage. 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 Images were reconstructed in the axial, coronal, and sagittal planes. COMPARISON: CT HEAD WITHOUT CONTRAST FINDINGS: Brain Parenchyma: Large area of encephalomalacia in the left parieto-occipital region and left temporal lobe. Additional areas of encephalomalacia in the anterior bifrontal regions. There is no acute territorial infarct or intracranial hemorrhage. Ventricular System and Extra-Axial Spaces: Stable positioning of a right frontal approach ASSOCIATE PARTNER shunt catheter, with stable ventricular size. There is no extra- axial fluid collection. Osseous and Extracranial Structures: There is no displaced calvarial fracture. Left occipital craniectomy. The visualized paranasal sinuses are clear. The mastoid air cells are clear. The orbits and soft tissues are unremarkable. Procedure Note Henrique Shelley MD - 10/07/2024 CT HEAD WITHOUT CONTRAST Referring clinician's provided indication for this examination in [facility]:Outside Radiology Order; partial symptomatic epilepsy with simple partialseziures, intractable, without status epilepticus TECHNIQUE: Multidetector-row CT of the head was performed withoutintravenous contrast using tailored dose modulation techniques. Imageswere reconstructed in the axial, coronal, and sagittal planes. COMPARISON: CT HEAD WITHOUT CONTRAST FINDINGS: Brain Parenchyma: Large area of encephalomalacia in the leftparieto-occipital region and left temporal lobe. Additional areas ofencephalomalacia in the anterior bifrontal regions. There is no acuteterritorial infarct or intracranial hemorrhage. Ventricular System and Extra-Axial Spaces: Stable positioning of a rightfrontal approach ASSOCIATE PARTNER shunt catheter, with stable ventricular size. There isno extra-axial fluid collection. Osseous and Extracranial Structures: There is no displaced calvarialfracture. Left occipital craniectomy. The visualized paranasal sinuses areclear. The mastoid air cells are clear. The orbits and soft tissues areunremarkable. IMPRESSION: 1. Stable positioning of a right frontal approach ASSOCIATE PARTNER shunt catheter, withstable ventricular size. 2. Multifocal areas of encephalomalacia. 3. No acute territorial infarct or intracranial hemorrhage. us Marino Valdes MD IM CT HEAD/NECK Final Result documented in this encounter Visit Diagnoses Diagnosis S/P ASSOCIATE PARTNER shunt- Primary Presence of cerebrospinal fluid drainage device Headache disorder Headache S/P ASSOCIATE PARTNER shunt Presence of cerebrospinal fluid drainage device Headache disorder Headache documented in this encounter Care Teams Adult Health Clinical Nurse Specialist Relationship Specialty Start Date End Date Praneeth Barrow DO [email or web address] PCP - General 11/08/17 documented as of this encounter Additional Source Comments The information contained in this document represents components of the legal health record. It is not the complete legal health record.[facility]
--- OUTSIDE RECORDS SUMMARY | 2025-09-14 14:31 | XMS_ITS | Encounter Summary ---
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 Not on file documented as of this encounter Plan of Treatment Upcoming Encounters Date Type Department Care Team (Late Contact Info) Description 11/17/2025 12:45 PM EST Office Visit [facility] 22 [facility] 3rd Floor, [address] [place] [address] Richar Drake DO 22 [facility] [address] [place] [address] documented as of this encounter Visit Diagnoses Not on filedocumented in this encounter Care Teams Bleach Chlorinator Relationship Specialty Start Date End Date Praneeth Barrow DO PCP - General 11/08/17 documented as of this encounter Additional Source Comments The information contained in this document represents components of the legal health record. It is not the complete legal health record.[facility]
--- OUTSIDE RECORDS SUMMARY | 2025-09-14 14:31 | XMS_ITS | Encounter Summary ---
Author Organization [facility] Address [facility] [employer] [facility] [address] [place] [address] Phone Care Team Providers Care Machine Tool Technician Instructor Name Role Phone NitaPraneeth oden Primary Care Provider [phone] Reason for Referral * MRI/CAT Scan - Closed Specialty Diagnoses / Procedures Referred By Geri austin Referred To Contact Radiology Diagnoses Radiculopathy, cervical region Procedures CT Cervical Spine Deonna Cheng NP [address] [place] [phone] Phone: tel: fax: [email or web address] Referral ID Status Reason Start Date Expiration Date Visits Re quested Visits Authorized [id number] Closed 12/24/2024 12/24/2025 1 1 Encounter Details Date Type Department Care Team (Latest Contact Info) Description 12/24/2024 Transcribe Orders Virtual Department [address] [place] [address] Deonna Cheng NP [address] [place] [phone] [email or web address] Radiculopathy, cervical region (Primary Dx) Social History Tobacco Use Types [...] 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 Not on file documented as of this encounter Plan of Treatment Upcoming Encounters Date Type Department Care Team (Late st Contact Info) Description 11/17/2025 12:45 PM EST Office Visit [facility] [address] [place] [address] 3rd Floor, [address] [place] [address] Richar Drake, 22 [facility] [address] [place] [address] [email or web address] documented as of this encounter Results * CT CERVICAL SPINE WITHOUT CONTRAST (12/30/2024 2:24 PM EST) Anatomical Region Laterality Modality C-spine Computed Tomogra phy 01/01/2025 6:29 PM EST Impressions 01/01/2025 7:13 PM EST 1. Postoperative changes, with anterior cervical fusion at C4-5 and C5-6. 2. Moderate degenerative changes throughout the cervical spine, with diffuse degenerative disc/endplate changes, multilevel posterior disc osteophyte complexes, facet arthropathy, and anterior bridging osteophytes. 3. Findings contribute to multilevel central canal stenosis, which appears most prominent at C4-5 and C5-6, and significant multilevel neural foraminal stenosis, as detailed above. These findings would be far better assessed by MRI. 4. Partial imaging of postoperative changes including left occipital craniotomy and adjacent encephalomalacia, as well as leads and tubing partially imaged within the neck. Narrative 01/01/2025 7:[address] CERVICAL SPINE WITHOUT CONTRAST Referring clinician's provided indication for this examination in Epic: Outside Radiology Order; radiculopathy CLINICAL HISTORY: Neck pain. COMPARISONS: Cervical radiographs of 11/28/2022. TECHNIQUE: Axial MDCT images were acquired through the cervical spine, without intravenous contrast, with coronal and sagittal reformatted images. Dose reduction techniques including automated exposure control and adjustment of the mA and/or kV according to patient size were utilized. FINDINGS: Postoperative changes with anterior cervical fusion at C4-5 and C5-6 the hardware appears to be intact and well-positioned. Moderate degenerative changes elsewhere within the cervical spine with multilevel degenerative endplate changes and anterior multilevel near bridging osteophytes. CT is not sensitive in assessing the discs, central canal, or neural foramina. Allowing for this there are multilevel at least small posterior disc osteophyte complexes throughout the cervical spine, which cause at least mild effacement of the ventral CSF at all levels and more significant mild to moderate central canal stenosis at some levels, perhaps most prominently seen at C4-5 and to a lesser degree at other levels above and below this. CT is also limited in assessing neural foraminal stenosis. There is multilevel neural foraminal stenosis, which appears moderately severe bilaterally at C3-4, C4-5, and C5-6, and mild to moderate at other levels below and above this. MRI would better assess all of these findings and any potential nerve impingement. Limited soft tissue assessment. There is postoperative changes partially seen within the left posterior skull base with some adjacent encephalomalacia. Diffuse atherosclerosis. Device lead seen near the region of the left thyroid. Additional tubing seen along the right neck and skull base. Procedure Note Abisai Villalpando MD - 01/01/2025 CT CERVICAL SPINE WITHOUT CONTRAST Referring clinician's provided indication for this examination in Epic:Outside Radiology Order; radiculopathy CLINICAL HISTORY: Neck pain. COMPARISONS: Cervical radiographs of 11/28/2022. TECHNIQUE: Axial MDCT images were acquired through the cervical spine,without intravenous contrast, with coronal and sagittal reformattedimages. Dose reduction techniques including automated exposure controland adjustment of the mA and/or kV according to patient size wereutilized. FINDINGS: Postoperative changes with anterior cervical fusion at C4-5 and C5-6 thehardware appears to be intact and well-positioned. Moderate degenerativechanges elsewhere within the cervical spine with multilevel degenerativeendplate changes and anterior multilevel near bridging osteophytes. CT is not sensitive in assessing the discs, central canal, or neuralforamina. Allowing for this there are multilevel at least small posteriordisc osteophyte complexes throughout the cervical spine, which cause atleast mild effacement of the ventral CSF at all levels and moresignificant mild to moderate central canal stenosis at some levels,perhaps most prominently seen at C4-5 and to a lesser degree at otherlevels above and below this. CT is also limited in assessing neuralforaminal stenosis. There is multilevel neural foraminal stenosis, whichappears moderately severe bilaterally at C3-4, C4-5, and C5-6, and mild tomoderate at other levels below and above this. MRI would better assess allof these findings and any potential nerve impingement. Limited soft tissue assessment. There is postoperative changes partiallyseen within the left posterior skull base with some adjacentencephalomalacia. Diffuse atherosclerosis. Device lead seen near theregion of the left thyroid. Additional tubing seen along the right neckand skull base. IMPRESSION: 1. Postoperative changes, with anterior cervical fusion at C4-5 andC5-6. 2. Moderate degenerative changes throughout the cervical spine, withdiffuse degenerative disc/endplate changes, multilevel posterior discosteophyte complexes, facet arthropathy, and anterior bridgingosteophytes. 3. Findings contribute to multilevel central canal stenosis, whichappears most prominent at C4-5 and C5-6, and significant multilevel neuralforaminal stenosis, as detailed above. These findings would be far betterassessed by MRI. 4. Partial imaging of postoperative changes including left occipitalcraniotomy and adjacent encephalomalacia, as well as leads and tubingpartially imaged within the neck. Deonna Cheng NP IMG CT XSPECIALTY ORDERABLES Fin al Result documented in this encounter Visit Diagnoses Diagnosis Radiculopathy, cervical region- Primary Brachial neuritis or radiculitis nos Radiculopathy, cervical region Brachial neuritis or radiculitis nos documented in this encounter Care Teams Machine Tool Technician Instructor Relationship Specialty Start Date End Date Praneeth Barrow [email or web address] PCP - General 11/08/17 documented as of this encounter Additional Source Comments The information contained in this document represents components of the legal health record. It is not the complete legal health record.[facility]
--- OUTSIDE RECORDS SUMMARY | 2025-09-14 14:31 | XMS_ITS | Data Portability ---
Author Organization [facility], Telehealth Patient Home Address [address] [place] [address] Assessment Encounter Date Assessment Date Assessment LastModified by Organization Details LastModified Time 07/11/2024 07/11/2024 Patient agreed and verbally consents to this audio and video Telehealth appt via a secure platform [email or web address] Not available 07/11/2024 13:36:12 Plan of Treatment Reminders Order Date Submit Date Provider Last Modified By Organization Details Last Modified Time Details Appointments FOLLOW UP 15 2024 11:15A DARRION DEE Not available Not available Not available FOLLOW UP 15 2025 11:45A DARRION DEE Not available Not available Not available Lab CMP, serum or plasma 2024 025 [facility], [address] [place] [address], [id number], 09/14/2025 11:59:20 CBC w/ auto diff 2024 025 [facility], [address] [place] [address], [id number], 09/14/2025 11:59:21 hemoglobi n A1c, QN, blood 2024 025 [facility], [address] [place] [address], [address], 09/14/2025 11:59:21 PSA, serum or plasma 2024 025 [facility], [address] [facility], [place], [address], 09/14/2025 11:59:20 hemoglobi n A1c, QN, blood 2023 024 [facility] (Outpatient), [address] [place], [address], 07/11/2024 13:44:20 CBC w/ auto diff 2023 024 [facility] (Outpatient), [address] [place], [address], 07/11/2024 13:44:20 PSA, serum or plasma 2023 024 [facility] (Outpatient), [address] [place] [address], [address], 07/11/2024 13:44:20 CMP, serum or plasma 2023 024 [facility] (Outpatient), [address] [place], [address], 07/11/2024 13:44:20 Referral pulmonolo gist referral - historica l patient, needs appt 2024 025 [facility] Wyatt Toledo MD, [address] [place] [address], [address], 09/14/2025 12:24:12 Procedures None recorded. Surgeries None recorded. Imaging CT, chest, w/o contrast - more recurrent exacerbat ions of COPD 2024 025 [email or web address] [facility] - Outpatient Imaging Central Scheduling (Not Breast), [address] [place] [address], [address], 12/23/2024 09:27:07 XR, knee, 3 view 2022 023 [email or web address] Not available 10/19/2023 08:29:24 XR, hip + pelvis, unilatera l, 2 or 3 view 2022 023 [email or web address] Not available 10/19/2023 08:29:25 Medication Orders prednison e 10 mg tablet 2024 025 [facility][id number], [address], [place], [id number], 09/14/2025 11:43:09 albuterol sulfate HFA 90 mcg/actua tion aerosol inhaler 2024 025 [facility] #[id number], [address], [place], [id number], 09/14/2025 11:43:06 Zithromax Z-Chan 250 mg tablet 2024 025 [facility][id number], [address], [place], [phone], 09/14/2025 11:43:10 Trelegy Ellipta 200 mcg-62.5 mcg-25 mcg powder for inhalatio n 2024 025 [facility] #59570, [address], [place], [phone], 09/14/2025 11:43:05 prednison e 10 mg tablet 2024 025 [facility] #2024, [address] [place], [address], 09/14/2025 11:22:28 amoxicill in 875 mg tablet [email or web address] [facility] #2024, [address] [place], [address], 09/14/2025 11:19:[address] 10 mg tablet [email or web address] [facility] #2024, [address] [place], [address], 09/14/2025 11:21:23 Trelegy Ellipta 100 mcg-62.5 mcg-25 mcg powder for inhalatio n 2023 024 [email or web address] [facility]2025, [address] [place], [address], 09/14/2025 11:22:18 Patient TargetsNo targets recorded. Patient InstructionsNo instructions recorded. 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 [address], [address], 02/11/2024 11:00:28 02/21/20 24 02/20/2024 US, duple x, renal arter y No observ ation record ed. [email or web address] [address], [address], 02/25/2024 11:54:41 03/19/20 24 03/14/2024 XR, ankle + foot No observ ation record ed. [address], [address], 03/19/2024 08:53:04 03/19/20 24 03/14/2024 XR, femur , 2 or more view No observ ation record ed. [address], [address], 03/19/2024 08:53:16 03/19/20 24 03/14/2024 XR, ankle + foot No observ ation record ed. gwenda [facility] (Scheduling Dept) [address] [place], [address], 03/19/2024 12:04:27 03/19/20 24 03/14/2024 XR, hip, unila teral , 2 or 3 view No observ ation record ed. [facility] (Scheduling Dept) [address] [place], [address], 03/19/2024 10:47:40 07/24/20 24 02/04/2024 CT, abdom en + pelvi s, w/o contr ast No observ ation record ed. [email or web address] [address] [place] [address], [phone], 07/25/2024 08:30:45 07/30/20 24 07/29/2024 US, abdom inal aorta No observ ation record ed. [email or web address] [facility] [address] [place], [address], 08/03/2024 20:33:52 09/30/20 24 09/24/2024 CT, adren al, w/o contr ast No observ ation record ed. [facility] (Scheduling Dept) [address] [place], [address], 10/01/2024 11:47:15 01/01/20 25 12/30/2024 CT, chest , w/o contr ast No observ ation record ed. [email or web address] [facility] Central Scheduling (Not Breast) [address] [place] [address], [address], 01/07/2025 08:29:47 Result Notes None recorded. 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 / MSD Not Available [facility] 3 09:29:41 Traumati c brain injury 349656978 Active 2017 Not Available [facility] 3 09:29:41 Seizure disorder 939893188 Active 2017 vagus nerve stimulato r implant DARRION LEON [address] [place], [address], [facility] 5 11:30:14 Chronic obstruct marquita pulmonar y disease 45304731 Active 2017 Not Available [facility] 3 09:29:41 Asthma 362274583 Active 2017 Not Available [facility] 3 09:29:41 Adrenal cyst 947202991 Active 2017 Not Available [facility] 3 09:29:41 Obstruct marquita sleep apnea syndrome 57770838 Active 2017 Not Available [facility] 3 09:29:41 Hypertri glycerid emia 608742842 Active 2017 Not Available [facility] 3 09:29:41 [facility] hyperten arsenio 24811936 Active 2017 Not Available [facility] 3 09:29:41 Abdomina l aortic aneurysm 235137629 Active 2017 09/24/18 =4.2 cm, repeat 1 year Not Available [facility] 3 09:29:41 Gastroes ophageal reflux disease 048352985 Active 2018 Not Available [facility] 3 09:29:41 Acute bronchit is 13136502 Active 2021 DARRION LEON [address] [place], [address], [facility] 5 10:23:48 Cough 42938944 Active 2021 Not Available [facility] 3 09:29:41 Hydrocep halus 463655245 Active 2021 Not Available [facility] 3 09:29:41 Impacted cerumen of bilatera l ears 57171896979 87591 Active 2021 Not Available [facility] 3 09:29:41 Coronary arterios clerosis 15781849 Active 2021 Not Available [facility] 3 09:29:41 Fracture of humerus 15933681 Active 2022 Not Available [facility] 3 09:29:41 Abnormal gait 14040274 Active 2022 Not Available [facility] 3 09:29:41 Mood disorder 24185428 Active 2022 Not Available [facility] 3 09:29:41 Lumbago with sciatica 634749264 Active 2022 Not Available [facility] 3 09:29:41 Lumbago with sciatica 244433343 Active 2022 Not Available [facility] 3 09:29:41 Pain of right hip joint 72597458480 9102 Active 2022 Not Available [facility] 3 09:29:41 Pain of right knee joint 69852336752 4100 Active 2022 Not Available [facility] 3 09:29:41 Impaired fasting glycemia 195796087 Active 2023 DARRION LEON [address] [place], [address], [facility] 4 10:16:32 Stenosis of left renal artery 91443880844 637976 Active 2023 DARRION LEON [address] [place], [address], [facility] 4 11:00:48 Foreign body in skin of foot 138088309 Active 2023 DARRION LEON [address] [place], [address], [facility] 4 11:05:56 Benign prostati c hyperpla ernesto 713141375 Active 2023 DARRION LEON [address] [place], [address], [facility] 4 13:33:50 Lesion of brain 184678776 Active 2023 DARRION LEON [address] [place], [address], [facility] 4 15:48:38 COVID-19 041832571 Active 2023 DARRION LEON [address] [place], [address], [facility] 4 11:19:55 Expirato ry wheezing 9742010 Active 2024 DARRION LEON [address] [place], [address], [facility] 5 11:59:26 Acute exacerba tion of chronic obstruct marquita pulmonar y disease 499349150 Active 2024 DARRION LEON [address] [place], [address], [facility] 5 12:02:02 Streptoc occal sore throat 70303562 Active 2024 DARRION LEON [address] [place], [address], [facility] 5 16:27:19 Problem Notes None recorded. Procedures Surgical History Date Name Laterality Status Provider Name and Address Organization Details Recorded Time 10/24/20 22 Cerumen Removal completed DARRION LEON [address] [place] [address], [phone], [facility] 10/24/2022 10:00:54 03/11/20 21 Cerumen Removal completed DARRION LEON [address] [place] [address], [phone], [facility] 03/11/2021 15:20:41 10/15/20 18 Nebulizer tx completed NOÉ Bartholomew [address] [place] [address], [address], [facility] 10/15/2018 09:46:53 09/02/20 15 Colonoscopy completed Nimisha Delgado [facility] 12/16/2018 14:42:41 Imaging [...] 2024 active Not Available Not Available Not Carmen solano Paxlovid 300 mg (150 mg x 2)-100 mg tablets in a dose pack Take 1 dose pk by oral route. 09/14 completed Not Available Not Available Not Available Vitals Date Recorded Body height Body mass index (BMI) Body weight Heart rate Oxygen saturation Oxygen saturation in Arterial blood by Pulse oximetry Systolic And Diastolic Provider Name and Address Organization Details Last Updated DateTime 5 172.09 cm 30.4 kg/m2 95572.0 1 g 63 /min 95 % 95 % 118/68 mm[Hg] Ibis Genao [facility] 5 11:35:50 Date Recorded Body height Provider Name an d Address Organization Details Last Updated DateTime 08/29/2024 172.09 cm Ibis Genao [facility] 08/29/2024 14:19:24 Date Recorded Body height Body mass index (BMI) Body weight Oxygen saturation Oxygen saturation in Arterial blood by Pulse oximetry Heart rate Systolic And Diastolic Provider Name and Address Organization Details Last Updated DateTime 5 172.09 cm 32.5 kg/m2 45166.5 8 g 97 % 97 % 80 /min 116/58 mm[Hg] Ladi Klein [facility] 5 11:24:32 Date Recorded Body height Body mass index (BMI) Body weight Heart rate Oxygen saturation Oxygen saturation in Arterial blood by Pulse oximetry Systolic And Diastolic Provider Name and Address Organization Details Last Updated DateTime 3 172.09 cm 31.2 kg/m2 70995.8 4 g 65 /min 98 % 98 % 124/68 mm[Hg] Mita Robledo [facility] 3 15:03:17 Social History Question Answer Notes LastModified by Organizat ion Details LastModified Time Tobacco Smoking Status Current Every Day Smoker Not Available [facility] 09/07/2020 03:36:23 What Was The Date Of Your Most Recent Tobacco Screening? 09/14/2025 [email or web address] Information not available 09/14/2025 How Much Tobacco Do You Smoke? 0.25 PPD [email or web address] Information not available 07/25/2023 How Many Years Have You Smoked Tobacco? 50 [id number] Information not available 09/07/2020 Sex: Unknown Functional Status Question Answer Note LastModified by Organization D etails LastModified Time Do you or have you ever used any other forms of tobacco or nicotine? No [email or web address] Information not available 10/05/2023 Mental Status None recorded. Family History Relationship Description Onset Age of this Age Resolved Age Notes LastModified by Organization Details LastModified Time Brother Carcinoma of prostate [email or web address] Not available 08/27 12:19:52 Medical History No medical history recorded. Immunizations Vaccine Type Date Status Note Provider Nam e and Address Organization Details Recorded Time pneumococcal, unspecified formulation 4 completed Nimisha gomez [facility] 12/17/2018 11:04:23 Influenza, split virus, quadrivalent, preservative 9 completed Nimisha gomez [facility] 12/17/2018 11:04:23 Influenza, split virus, quadrivalent, preservative 0 completed Jann gomez [facility] 09/03/2020 11:16:13 zoster, unspecified formulation 0 completed Jann gomez [facility] 09/03/2020 11:16:26 COVID-19, mRNA, LNP-S, PF, 30 mcg/0.3 mL dose 1 completed Praneeth Barrow DO [address] [place] [address], [phone], [facility] 01/08/2021 19:31:12 COVID-19, mRNA, LNP-S, PF, 30 mcg/0.3 mL dose 1 completed Praneeth Barrow DO [address] [place] [address], [address], [facility] 02/05/2021 21:37:36 Past Encounters Encounter ID Performer Location Encounter Start Date Encounter Closed Date Diagnosis/Indication Diagnosis SNOMED-CT Code Diagnosis ICD10 Code Diagnosis IMO Codes Diagnosis Note [id number] Praneeth Barrow DO [facility] [address] [facility],[place] [address] 07/02/2018 15:43:09 07/02/2018 16:48:34 Seizure disorder 165508571 G40.909 back to baseline Chronic ob structive pulmonary disease 42471031 J44.9 quiet Asthma 410581013 J45.90 9 quiet Acute lyly l insufficiency 284896836 N28.9 due to previous dehydratio n, resolved prior to discharge Vomiting 534719297 R11.1 0 resolved [id number] Praneeth Barrow [facility] [address] [facility],[place] [address] 08/27/2018 13:32:03 08/27/2018 15:03:14 Seizure disorder 842155016 G40.909 back to baseline Chronic ob structive pulmonary disease 09469720 J44.9 quiet Essential hypertension 87175998 I10 stable Acute low back pain 2788 71399 M54.5 SI joint vs left lower back muscle strain lots of DDI with pain meds and pts current med list. will trial at a low dose and less frequent dosing schedule. if too much sedation, recommend d/c med [facility] ortho if conservati ve treatment fails declines PT at pressent [id number] Praneeth Barrow [facility] [address] [facility],[place] [address] 09/10/2018 09:47:14 09/10/2018 11:22:23 Abdominal aortic aneurysm 223604092 I71.4 incidental ly found on lumbar xray Lumbar spondylosis 24452 0009 M47.26 seen on xray, no significan t change is improving, though still periodical ly having pain Acute exac erbation of chronic obstructive pulmonary disease 296011028 J44.1 still has productive coughing and sob, will resend the pred [id number] Praneeth Barrow [facility] [address] [facility],[place] [address] 10/15/2018 08:57:55 10/15/2018 10:09:14 Asthma 771104949 J45.909 Essential hypertension 75239965 I10 slightly low today Obstructiv e sleep apnea syndrome 70052748 G47.33 Acute exac erbation of chronic obstructive pulmonary disease 810355944 J44.1 just had levaquin last month, will trial zpamarty with close f/u will also increase his advair from 250 to 500 with 1 month of samples consider anticholin ergic inhaler in future encourage regular use of proair neb treatment - improvemen t of sob and improvemen t of po2 [id number] Praneeth Barrow DO [facility] [address] [facility],[place] [address] 12/17/2018 10:57:06 12/17/2018 11:48:48 Adult health examination 576677271 Z00.00 Body mass index 30+ - obesity 134006242 Z68.32 healthy diet and exercise Tobacco user 757455987 Z 72.0 stressed importance of quitting Abdominal aortic aneurysm 675603783 I71.4 incidental ly found on lumbar xray repeat u/s on 09/2019 Chronic ob structive pulmonary disease 28207502 J44.9 quiet Essential hypertension 64017600 I10 low BP in setting of vertigo, with some orthostasi s, will trial lower dose of atenolol Active or passive immunization 096707961 Z23 Vertigo 014777341 R42 with several falls recently Recurrent falls 80799668 2 R29.6 3 falls in the past week with dizziness will lower BP med and see if this improves [id number] Praneeth Barrow DO [facility] [address] [facility],[place] [address] 12/31/2018 11:30:45 12/31/2018 12:06:30 Tobacco user 307642543 Z72.0 stressed importance of quitting Chronic ob structive pulmonary disease 53750277 J44.9 quiet Essential hypertension 63464308 I10 low BP in setting of vertigo, with some orthostasi s continues to have low blood pressure, will decrease atenolol further will take atenolol 25 mg (will quarter the 100 mg tablets) Vertigo 300940732 R42 none lately Recurrent falls 28994819 2 R29.6 no falls for past 2 weeks Gastroesop hageal reflux disease 998798170 K21.9 [id number] Praneeth Barrow [facility] [address] [facility] [facility] [place] [address] 2019 10:36:17 2019 12:16:01 Low back pain 858662253 M54.5 alt. 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 Essential hypertension 31791451 I10 stable [id number] [facility] [address] [facility] [place] [address] 08/27/2019 11:46:57 08/27/2019 13:56:59 Fatigue 48454945 R53.83 Vitamin D deficiency 347 89162 E55.9 Tick bite without infection 758781526 W57.XXXA Chronic ob structive pulmonary disease 38375251 J44.9 quiet Essential hypertension 38570076 I10 stable Obstructiv e sleep apnea syndrome 67072957 G47.33 uses cpap Abnormal weight loss 267 275928 R63.4 UTD on cancer screening will do labs as above Screening for malignant neoplasm of prostate 181373538 Z12.5 Tobacco de pendence syndrome 25365887 F17.200 [id number] Praneeth Moyacecille [facility] [address] [facility], [place] [address] 09/09/2019 16:14:30 09/09/2019 16:47:36 Acute exacerbation of chronic obstructive pulmonary disease 285912594 J44.1 restart pred taper - has plenty of prednisone at home, will start at 50 mg, then decrease by 10 mg every 3 days will increase advair consider adding an anticholin ergic Essential hypertension 31148648 I10 low, lisinopril was halved last week, will give the change more time Tobacco de pendence syndrome 30184768 F17.200 still smoking advised again to quit [id number] Praneeth Barrow [facility] [address] [facility],[place] [facility] [place] [address] 09/22/2019 11:48:41 09/22/2019 12:23:23 Acute exacerbation of chronic obstructive pulmonary disease 416525100 J44.1 restart pred taper - has plenty of prednisone at home, will start at 50 mg, then decrease by 10 mg every 3 days will increase advair consider adding an anticholin ergic Essential hypertension 50874725 I10 low, lisinopril was halved last week, will give the change more time Tobacco de pendence syndrome 79334006 F17.200 still smoking advised again to quit Hordeolum externum of lower eyelid 782390882 H00.019 [id number] Praneeth Barrow [facility] [address] [facility],[place] [address] 12/02/2019 10:54:38 12/02/2019 11:49:45 Chronic obstructive pulmonary disease 36624612 J44.9 Asthma 019182416 J45.90 9 Essential hypertension 08733666 I10 BP still quite low will dc the lisinopril and recheck in a couple weeks Gastroesop hageal reflux disease 084941580 K21.9 Acute bronchitis 0110696 2 J20.9 frequent recurrence s going to try trelegy samples Seizure disorder 0186266 02 G40.909 baseline Abdominal aortic aneurysm 397914776 I71.4 due again 09/2020 [id number] Praneeth Barrow [facility] [address] [facility] on [place] [facility] [place] [address] 01/02/2020 10:46:53 01/02/2020 11:20:06 Chronic obstructive pulmonary disease 93796785 J44.9 Asthma 904747434 J45.90 9 Essential hypertension 88007173 I10 BP much better Gastroesop hageal reflux disease 981252341 K21.9 Acute bronchitis 9747809 2 J20.9 doing well with trelegy, thinks he's coughing less and breathing better on this regimen Seizure disorder 5918068 02 G40.909 baseline Abdominal aortic aneurysm 342869403 I71.4 due again 09/2020 [id number] Praneeth Barrow [facility] [address] [place] [address],[place] [address] 03/15/2020 09:24:53 03/15/2020 10:13:07 Asthma 363502020 J45.909 Neck pain 70826562 M54.2 [id number] Praneeth Muñoz Push[facility] [address] [facility],[place] [address] 03/01/2021 10:50:55 03/01/2021 12:21:54 Polyp of nasal sinus 60657909 J33.8 will set him up with ENT for fu CT head in january reported clear nasal sinuses will have him try a netti pot in the meantime Impacted c erumen of bilateral ears 1792919255 469882 H61.23 will come back for lavage, both ears impacted [id number] Praneeth Barrow [facility] [address] [facility],[place] [address] 03/11/2021 14:56:14 03/14/2021 08:52:37 Impacted cerumen of bilateral ears 2346499089 829459 H61.23 stable now cerumen removed, hearing improved TMs visualized [id number] Praneeth Barrow [facility] [address],[place] [address] 05/03/2021 10:44:02 05/03/2021 14:20:13 Anxiety 32087868 F41.1 stable Gastroesop hageal reflux disease 774847055 K21.9 stable Chronic ob structive pulmonary disease 46450012 J41.0 stable Essential hypertension 97249785 I10 BP excellent Benign pro static hyperplasia 233835287 N40.1 needs PSA rechecked [id number] Praneeth Barrow [facility] [address] [place] [address] on [place] [address] 03/24/2022 09:53:48 03/28/2022 13:41:02 Acute bronchitis 89106690 J20.8 will start on appropriat e treatmenth as left over pred at home, given a taper dosing for 40 mg x 3 days, 30 mg x 3 days, 20 mg x 3 days, 10 mg x 3 days, verbalized understand ing Cough 25358938 R05.1 will start on abx, steriods and suppressan t [id number] Praneeth Barrow [facility] [address] [facility],[place] [address] 04/28/2022 14:52:53 04/28/2022 15:34:58 Seizure disorder 692924933 G40.909 Abdominal aortic aneurysm 791294886 I71.4 Chronic ob structive pulmonary disease 02692080 J41.0 Essential hypertension 37681582 I10 Traumatic brain injury 548088541 S06.2X0D given said hx i am worried about the poss of NPH returning wewill need CT brain and lab Asthma 444808285 J45.90 9 stable and quiet Hydrocephalus 652377749 G91.9 [id number] Praneeth Barrow [facility] [address] [facility],[place] [address] 10/24/2022 09:45:37 10/24/2022 11:01:45 Acute bronchitis 60740125 J20.8 will start medrol, z-chan and cough suppressan twill call if no improvemen t Impacted c erumen of bilateral ears [id number] 192052 H61.23 stable now cerumen removed, hearing improved TM's visualized Coronary arteriosclerosis 64647499 I25.10 will set up with US echo [id number] Praneeth Barrow [facility] [address] [facility],[place] [address] 06/18/2023 10:33:36 06/18/2023 11:09:47 Asthma [id number] J45.20 has to make fu with Dr. [place] Chronic ob structive pulmonary disease 71605614 J41.0 course breathingr honchistar t on pred taper Essential hypertension 75520256 I10 BP excellent Gastroesop hageal reflux disease 513083752 K21.9 stable Hypertriglyceridemia 302 680948 E78.2 stable Hydrocephalus 100875146 G91.8 stable Seizure disorder 7803178 02 G40.909 stablehas been having little seizures per patientlas t one was a few days okay Abdominal aortic aneurysm 525140419 I71.41 stablerece nt US on file Abnormal gait 71917119 R 26.89 currently in PT inpatientn eeds a referral for outpatient when he finishes his current PTreferral sent Coronary arteriosclerosis 97158804 I25.10 will set up with US echoamena ferro send results to cardio on file Mood disorder 58542009 F 39 will increase to 175 mg [id number] Praneeth Barrow [facility] [address] [place] [address] 07/25/2023 15:28:30 07/25/2023 16:11:25 Chronic obstructive pulmonary disease 60797465 J41.0 stable Essential hypertension 37305231 I10 BP excellent Hypertriglyceridemia 302 371314 E78.2 stable Seizure disorder 6815067 02 G40.909 stable Pre-surger y evaluation 671760837 Z01.818 The patient was seen in the office today for pre-op evaluation . All medical conditions on patient's problem list were addressed and are currently stable, no interventi on needed at this time. Based on history and physical performed, the patient is cleared for surgery. [id number] Praneeth Barrow [facility] [address] [place] [address] 10/05/2023 14:44:34 10/08/2023 08:27:54 Lumbago with sciatica 698571190 M54.41 will set up Pain of ri ght hip joint 4086044877 39426 M25.551 will set up with hip XR's Pain of ri ght knee joint 0088327165 95759 M25.561 will set up with XR's knee [id number] Praneeth Barrow [facility] [address] [place] [address] 07/11/2024 11:04:50 07/11/2024 13:57:23 Chronic obstructive pulmonary disease 04705557 J41.0 stableneed s to restart the trelegy Essential hypertension 69876061 I10 BP excellent Benign pro static hyperplasia 085683949 N40.1 needs PSA rechecked Asthma 951949444 J45.20 needs refill of the singulairt relegy needs to be restarted Impaired f asting glycemia 226005560 R73.01 needs recheck Impacted c erumen of bilateral ears [id number] 371958 H61.23 needs both ears cleaned [id number] [facility] [address] [facility],[place] [address] 08/29/2024 14:14:46 09/01/2024 09:56:03 Mood disorder 37774816 F39 will increase to 175 mg Abdominal aortic aneurysm 438734269 I71.41 stablerece nt US on file Lesion of brain 94066801 8 G91.9 stable Seizure disorder 5581720 02 G40.909 stable [id number] [facility] [address] [facility] [facility] [facility] [place] [address] 12/19/2024 11:14:02 12/19/2024 12:16:47 Expiratory wheezing 9667198 R06.2 start on pred taper and amox Chronic ob structive pulmonary disease 54020239 J41.0 acute exacerbati on, needs f/u CT Acute exac erbation of chronic obstructive pulmonary disease 565179816 J44.1 start on treatment with pred taper [id number] [facility] [address] [facility] [facility] [place] [place] [address] 09/14/2025 11:12:33 09/14/2025 12:01:49 Depression screening 600769811 Z13.31 Seizure disorder 1663673 02 G40.909 77871 stable Mood disorder 25121478 F 39 will increase to 175 mg Essential hypertension 94597702 I10 BP low, recommende d d/c the atenolol at this time Benign pro static hyperplasia 244074103 N40.1 needs PSA rechecked Expiratory wheezing 9763 007 R06.2 start on pred taper and amox Asthma 460617257 J45.20 needs refill of the singulairt relegy needs to be restarted Chronic ob structive pulmonary disease 27922118 J41.0 put in new referral Health Concerns Section Related Observation LastModified by Organization Detai ls LastModified Time None Recorded Concern Status LastModified by Organization Details LastModified Time None Recorded Advance Directives Directive None Recorded Payers Insurance Date Sequence Insurance Name Policy Number Policy Crum Covered Member ID Crum Member ID Guarantor Name 09/14/2025 2 [facility] (INDEMNITY) [id number] Venkat Jarrell Rios [id number] Venkat Rios 09/14/2025 1 [place] [employer] [place] Venkat Rios [id number] Venkat Rios 09/14/2025 1 [place] Venkat Jarrell Rios [id number] Venkat Rios Notes Date Note Type Note Provider Name a nd Address Organization Details Recorded Time 3 text/html ROS as noted in the HPI c/o right hip pain the patient reports that he has ongoing right hip pain for the past 3 daysrecent injections today with [place] in [place] no injury or trauma feels sorenotes area is in the right lumbar spine and upper right hip, radiates into the side of the leg, lateral thigh the patient also reports he may have weakness in his right knee PT notes he is very weakstill hasmaking his brace for the patient's ankle, due to weakness from CVAdrop foot will set up with XRs, probable arthritiswill determine type of treatment appropriate DARRION ELON [address] [place] [address], [place], [address], [facility] 10/05/2023 15:22:29 4 text/html ROS as noted in the HPI f.u appt The patient is participating in this appointment via telemedicine communication with a phone call/video calling service (Doxy)The patient consents to use of these platforms in place of an in-person appointment due to either sick symptoms the patient is presenting with or current office closure due to COVID exposure in order to keep our office staff and patients safe COPD: needs a refill of the trelegy, hasn't had a f/u with pulm in awhilewill restart the trelegy for the patient to usealso needs singulair refilled, worked well in the past HTN: stable BPH: needs recheck of his levelslabs ordered needs lavage done for both his ears DARRION LEON [address] [place], [address], [facility] 07/11/2024 13:46:59 4 text/html ROS as noted in the HPI f/u ear lavage the patient reports bilateral hearing changeshas a hearing aid for the left ear tolerated ear lavage wellTM's vizualizedno issueshearing is stable DARRION LEON [address] [place], [address], [facility] 08/29/2024 15:48:55 5 text/html ROS as noted in the HPI chronic cough the patient has an acute on chronic copd exacerbationexp wheezing throughout taniya lungsfatigue, sob, wheezing, constant productive coughproducing thick dark yellow mucus recommended starting on pred taper and amoxicillin for treatment patient agrees with treatment needs to continue inhalersincrease fluid intake will fu with pulm for routine appt, wants to restart appts with them as wellneeds repeat CT given repeated exacerbations DARRION LEON [address] [place], [address], [facility] 12/19/2024 12:10:04 5 text/html ROS as noted in the HPI [...] will repeat in Dec 2025 DARRION LEON [address] [place], [address], [facility] 09/14/2025 13:01:28
--- OUTSIDE RECORDS SUMMARY | 2025-09-14 14:31 | XMS_ITS | Encounter Summary ---
Author Organization [facility] Address [address] [place] [address] Phone Care Team Providers Care Water Project Manager Name Role Phone Praneeth Barrow Primary Care Provider [phone] Encounter Details Date Type Department Care Team (Latest Contact Info) Description 08/27/2019 Transcribe Orders Virtual Department [address] [place], [place] [id number] Christine Rodriguez, ALYSHA 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 Not on file Not on file documented as of this encounter Plan of Treatment Upcoming Encounters Date Type Department Care Team (Late st Contact Info) Description 11/17/2025 12:45 PM EST Office Visit [facility] [address] [place] [address] 3rd Floor, [address] [place] [address] Richar Drake, DO [address] [facility] [address] [place] [address] [email or web address] documented as of this encounter Results * XR CHEST PA AND LATERAL 2 VIEWS (08/28/2019 1:11 PM EDT) Anatomical Region Laterality Modality Chest Radiographic Macy ging 08/28/2019 1:57 PM EDT Impressions 08/28/2019 1:59 PM EDT No acute pulmonary process or explanation for cough is seen. S/S: <N/A> no indication applies (use free text below). COPD clinically, cough POS - [id number] Narrative 08/28/2019 1:59 PM EDT COMPARISON: Chest x-ray June 27, 2018 FINDINGS: PA and lateral imaging of the chest is obtained. What is presumed to be a left-sided neurostimulator pack is noted. The patient has a ventriculoperitoneal shunt tube also noted The heart size is normal. The lung whitmore are clear. No pneumothorax or pleural fluid is evident. The aortic contour is unremarkable. There are prominent degenerative changes in the thoracic spine. Procedure Note Rufino Andrade MD - 08/28/2019 COMPARISON: Chest x-ray June 27, 2018 FINDINGS: PA and lateral imaging of the chest is obtained. What is presumed to be a left-sided neurostimulator pack is noted. Thepatient has a ventriculoperitoneal shunt tube also noted The heart size is normal. The lung whitmore are clear. No pneumothorax or pleural fluid is evident. The aortic contour is unremarkable. There are prominent degenerative changes in the thoracic spine. IMPRESSION: No acute pulmonary process or explanation for cough is seen. S/S: <N/A> no indication applies (use free text below). COPD clinically,cough POS - [id number] Christine Rodriguez PA-C IMG XR CHEST Final Result documented in this encounter Visit Diagnoses Diagnosis Tobacco dependence syndrome- Primary Tobacco use disorder Nicotine dependence, uncomplicated, unspecified nicotine product type Tobacco dependence syndrome Tobacco use disorder Nicotine dependence, uncomplicated, unspecified nicotine product type documented in this encounter Care Teams Water Project Manager Relationship Specialty Start Date End Date Praneeth Barrow DO [email or web address] PCP - General 11/08/17 documented as of this encounter Additional Source Comments The information contained in this document represents components of the legal health record. It is not the complete legal health record.[facility]
--- OUTSIDE RECORDS SUMMARY | 2025-09-14 14:31 | XMS_ITS | Encounter Summary ---
Author Organization [facility] Address [address] [place] [address] Phone Care Team Providers Care Regulatory Affairs Consultant Name Role Phone NitacecillePraneeth DO Primary Care Provider [phone] Reason for Referral * MRI/CAT Scan - Closed Specialty Diagnoses / Procedures Referred By Geri austin Referred To Contact Radiology Diagnoses Pararenal abdominal aortic aneurysm, without rupture Procedures CT Angio Abdomen/Pelvis Sarai Link PA [address] [facility] [place] [address] Phone: tel: fax: Referral ID Status Reason Start Date Expiration Date Visits Re quested Visits Authorized [id number] Closed 08/30/2023 1 1 Encounter Details Date Type Department Care Team (Latest Contact Info) Description 08/30/2023 Transcribe Orders Virtual Department [address] [place] [address] Sarai Link PA [address] [place] [address] [place] [address] Pararenal abdominal aortic aneurysm, without rupture (Primary Dx) Social History Tobacco Use Types [...] 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 Not on file documented as of this encounter Plan of Treatment Upcoming Encounters Date Type Department Care Team (Late st Contact Info) Description 11/17/2025 12:45 PM EST Office Visit [facility] [address] [place] [address] [address]rd Floor, [address] [place] [address] Richar Drake DO [address] [place] [address] [place] [address] [email or web address] documented as of this encounter Results * CT ANGIO ABDOMEN/PELVIS WITH AND WITHOUT CONTRAST (02/04/2024 11:18 AM EDT) Anatomical Region Laterality Modality Abdomen, Abdominal Vasculature C omputed Tomography 02/05/2024 8:26 PM EDT Impressions 02/09/2024 3:51 PM EDT 3.9 cm infrarenal abdominal aortic aneurysm. Likely moderate stenosis of the left renal artery origin. 2.4 cm left adrenal nodule, statistically likely a benign adenoma in the absence of history of known malignancy, though not definitively characterized. Consider adrenal mass protocol CT. Narrative 02/09/2024 3:[address] ANGIO ABDOMEN/PELVIS WITH CONTRAST Referring clinician's provided indication for this examination in Epic: Outside Radiology Order; ABDOMINAL AORTIC ANEURYSM TECHNIQUE: Multidetector-row CTA of the abdomen and pelvis was performed after administration of intravenous contrast using tailored dose modulation techniques. Images were reconstructed in the axial, coronal, and sagittal planes, including angiographic image post-processing. COMPARISON: None FINDINGS: Lower Chest: Normal. No consolidation or pleural effusions. Liver: No suspicious focal liver lesion. Biliary: No biliary ductal dilatation. Spleen: Normal. No splenomegaly or focal lesions. Pancreas: Normal. No masses or ductal dilatation. Adrenal Glands: 2.4 cm left adrenal nodule. No right adrenal nodule. Kidneys/Ureters: No solid renal mass or hydronephrosis. Benign bilateral renal cysts. Bowel: No bowel obstruction or wall thickening. Colonic diverticulosis. Peritoneum/Retroperitoneum: Ventricular peritoneal shunt catheter terminating in the left lower quadrant. Lymph Nodes: Normal. No lymphadenopathy. Pelvic Organs/Bladder: Normal. No mass. Vessels: Infrarenal abdominal aortic aneurysm measuring up to 3.9 x 3.9 cm on 3:76, by double oblique, short axis technique, with associated mural thrombus. Suprarenal abdominal aorta is normal in caliber. There are severe aortoiliac atherosclerotic calcifications, as well as calcification at the origins of multiple branch vessels. The celiac artery, SMA, and bilateral renal arteries are patent, noting likely moderate stenosis at the origin of the left renal artery. The ELSIE opacifies indicating patency. Infrarenal IVC filter. Bones/Soft Tissues: No suspicious focal osseous lesion. Ectasia of the bilateral common iliac arteries measuring up to 1.6 cm bilaterally (3:98). Spine degenerative changes. Grade 1 anterolisthesis of L4 on L5. Procedure Note Alexei Kennedy MD - 02/09/2024 CT ANGIO ABDOMEN/PELVIS WITH CONTRAST Referring clinician's provided indication for this examination in Epic:Outside Radiology Order; ABDOMINAL AORTIC ANEURYSM TECHNIQUE: Multidetector-row CTA of the abdomen and pelvis was performedafter administration of intravenous contrast using tailored dosemodulation techniques. Images were reconstructed in the axial, coronal,and sagittal planes, including angiographic image post-processing. COMPARISON: None FINDINGS: Lower Chest: Normal. No consolidation or pleural effusions. Liver: No suspicious focal liver lesion. Biliary: No biliary ductal dilatation. Spleen: Normal. No splenomegaly or focal lesions. Pancreas: Normal. No masses or ductal dilatation. Adrenal Glands: 2.4 cm left adrenal nodule. No right adrenal nodule. Kidneys/Ureters: No solid renal mass or hydronephrosis. Benign bilateralrenal cysts. Bowel: No bowel obstruction or wall thickening. Colonic diverticulosis. Peritoneum/Retroperitoneum: Ventricular peritoneal shunt catheterterminating in the left lower quadrant. Lymph Nodes: Normal. No lymphadenopathy. Pelvic Organs/Bladder: Normal. No mass. Vessels: Infrarenal abdominal aortic aneurysm measuring up to 3.9 x 3.9 cmon 3:76, by double oblique, short axis technique, with associated muralthrombus. Suprarenal abdominal aorta is normal in caliber. There aresevere aortoiliac atherosclerotic calcifications, as well as calcificationat the origins of multiple branch vessels. The celiac artery, SMA, andbilateral renal arteries are patent, noting likely moderate stenosis atthe origin of the left renal artery. The ELSIE opacifies indicating patency.Infrarenal IVC filter. Bones/Soft Tissues: No suspicious focal osseous lesion. Ectasia of thebilateral common iliac arteries measuring up to 1.6 cm bilaterally (3:98).Spine degenerative changes. Grade 1 anterolisthesis of L4 on L5. IMPRESSION: 3.9 cm infrarenal abdominal aortic aneurysm. Likely moderate stenosis of the left renal artery origin. 2.4 cm left adrenal nodule, statistically likely a benign adenoma in theabsence of history of known malignancy, though not definitivelycharacterized. Consider adrenal mass protocol CT. Sarai MAIER IMG CT ABD/PELVIS Final Res ult documented in this encounter Visit Diagnoses Diagnosis Pararenal abdominal aortic aneurysm, without rupture- Primary Pararenal abdominal aortic aneurysm, without rupture documented in this encounter Care Teams Regulatory Affairs Consultant Relationship Specialty Start Date End Date Praneeth Barrow DO [email or web address] PCP - General 11/08/17 documented as of this encounter Additional Source Comments The information contained in this document represents components of the legal health record. It is not the complete legal health record.[facility]
--- OUTSIDE RECORDS SUMMARY | 2025-09-14 14:31 | XMS_ITS | Encounter Summary ---
Author Organization [facility] Address [address] [place] [address] [place] [address] Phone Care Team Providers Care Bag Repairer Name Role Phone Praneeth Barrow DO Primary Care Provider [phone] Reason for Referral * Physical Therapy (Routine) - Closed Specialty Diagnoses / Procedures Referred By Grei austin Referred To Contact Physical Therapy Diagnoses Encounter for rehabilitation System, Provider Not In, [facility] [id number] [place] [address] [address] [place] [address] Phone: tel: Referral ID Status Reason Start Date Expiration Date Visits Re quested Visits Authorized [id number] Closed 04/08/2019 11/04/2019 99 99 Encounter Details Date Type Department Care Team (Late st Contact Info) Description 03/19/2019 Transcribe Orders [facility] [address] [place] [address] Praneeth Barrow DO [address] [facility] [place] [address] [place] [address] [email or web address] Encounter for rehabilitation (Primary Dx) Social History Tobacco Use Types [...] 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 3rd Floor, [address] [place] [address] Richar Drake DO [address] [facility] [address] [place] [address] [email or web address] Scheduled Referrals Name Type Priority Associated Diagnoses Orde r Schedule Ambulatory referral to [facility] Physical Therapy Outpatient Referral Routine Encounter for rehabilitation Ordered: 03/19/2019 documented as of this encounter Visit Diagnoses Diagnosis Encounter for rehabilitation- Primary documented in this encounter Care Teams Bag Repairer Relationship Specialty Start Date End Date Praneeth Barrow DO PCP - General 11/08/17 documented as of this encounter Additional Source Comments The information contained in this document represents components of the legal health record. It is not the complete legal health record.[facility]
--- OUTSIDE RECORDS SUMMARY | 2025-09-14 14:31 | XMS_ITS | Encounter Summary ---
Author Organization [facility] Address [facility] [employer] [facility] [address] [place] [address] Phone Care Team Providers Care Reproduction Artist Name Role Phone NitacecillePraneeth DO Primary Care Provider [phone] Reason for Referral * Outpatient Procedure - Closed Specialty Diagnoses / Procedures Referred By Alyssaac t Referred To Contact Diagnoses Coronary arteriosclerosis Supraventricular extrasystoles Fatigue, unspecified type Palpitations Procedures Adult Echo TTE Adult Echo TTE Monserrat Sparks MD [address] [facility] [address] [place] [address] Phone: tel: fax: Referral ID Status Reason Start Date Expiration Date Visits Re quested Visits Authorized [id number] Closed 08/28/2019 08/27/2020 1 1 Encounter Details Date Type Department Care Team (Late st Contact Info) Description 08/28/2019 Ancillary Orders Virtual Department [address] [place] [address] Monserrat Sparks MD 241 [facility] [address] [place] [address] Coronary arteriosclerosis; Supraventricular extrasystoles; Fatigue, unspecified type; Palpitations Social History Tobacco Use Types Packs/Day Years [...] 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 Not on file documented as of this encounter Plan of Treatment Upcoming Encounters Date Type Department Care Team (Late st Contact Info) Description 11/17/2025 12:45 PM EST Office Visit [facility] [address] [facility] 3rd Floor, [address] [place], [place] [id number] Richar Drake DO 22 [facility] [address] [place], [place] [id number] [email or web address] documented as of this encounter Results * TTE COMPREHENSIVE (10/24/2019 10:34 AM EST) Body Surface Area 2.1 m2 Height 172 m Weight 100 kg Systolic BP 137 mmHg Diastolic BP 78 mmHg Interventricular Septum Thickness 11 mm Left Ventricle Internal Diameter End Diastole 40 42 - 58 mm Left Ventricle Internal Diameter End Systole 29 25 - 40 mm Left Ventricular Outflow Tract Diameter 20.0 mm LVOT VTI REST 174.00 mm Left Ventricular Outflow Tract Velocity 1.0 m/s Left Ventricular Outflow Tract Gradient at Rest 4.00 mmHg Left Ventricular Posterior Wall Thickness 11 mm Ejection Fraction 55 50 - 75 Percent Left Atrium Dimension Anterior-Posterior 31 15 - 40 mm Aortic Valve Mean Gradient 3.00 mmHg Aortic Valve Time Velocity Integral 207.00 mm Aortic Valve Peak Velocity 121.0 cm/s Aortic Valve Peak Gradient 6.00 mmHg Aortic Sinus Diameter 35 mm Ascending Aorta Diameter 31 mm Inferior Vena Cava Diameter 13 0.0 - 21 mm Mitral Valve Deceleration Time 232.00 ms Mitral Valve A Wave Speed 86.8 cm/s Mitral Valve E Wave Speed 62.6 cm/s Right Ventricle Basal Diameter 35.90 25 - 41 mm Raw LV EF% 47 % Left Atrial Volume 48 mL Left Atrial Volume Index 22.86 mL/m2 Aortic Valve Sinus Index 1 17 20 - 32 mm Ascending Aorta Diameter 15 mm Aortic Sinus Index 17 mm Ascending Aorta Index 15 mm Anatomical Region Laterality Modality Heart Ultrasound Narrative 10/24/2019 2:04 PM EST The predominant rhythm during the study was sinus. The left ventricular cavity size and wall thickness are normal. Left ventricular systolic function is normal. There are no segmental left ventricular wall motion abnormalities noted. The estimated ejection fraction is 55% (Normal 50-75%). The left ventricular ejection fraction was measured by the bi-plane method of discs. Left ventricular diastolic function appears within normal limits for age. No significant valvular disease. There is an insufficient tricuspid regurgitation Doppler profile to calculate a right ventricular systolic pressure. Compared to a prior report from 11/27/2012, septal wall motion abnormality not observed in this study and EF has normalized (55% from 40%). Left Ventricle The left ventricular cavity size and wall thickness are normal. Left ventricular systolic function is normal. There are no segmental left ventricular wall motion abnormalities noted. The estimated ejection fraction is 55% (Normal 50-75%). The left ventricular ejection fraction was measured by the bi-plane method of discs. Left ventricular diastolic function appears within normal limits for age. Right Ventricle The right ventricular size is normal. The right ventricular systolic function is normal. Left Atrium The left atrium is normal in size. The LA volume is 48 mL. The LA volume index is 22.86 mL/m2 (normal indexed value is 16-34 mL/m2). The pulmonary venous flow profiles are normal. Right Atrium The right atrium is normal in size. The IVC measures 13 mm (normal <=21 mm). The IVC demonstrates normal collapse with inspiration which is consistent with normal RA pressure. Mitral Valve The mitral valve appears normal. E/A ratio is 0.7. E/E' avg is 7.2. Lat E' velocity is 9.03cm/s. Med E' velocity is 8.27cm/s. There is no evidence of mitral stenosis. There is mild increased thickening of the anterior mitral valve leaflet. There is no significant mitral regurgitation detected by spectral and color Doppler. Tricuspid Valve The tricuspid valve appears normal. There is no evidence of tricuspid stenosis. There is evidence of trace tricuspid regurgitation by color and spectral Doppler. There is an insufficient tricuspid regurgitation Doppler profile to calculate a right ventricular systolic pressure. Aortic Valve The aortic valve appears normal. The aortic valve is tricuspid. There is no evidence of valvular aortic stenosis. The peak aortic valve gradient is 6 mmHg. The mean aortic gradient is 3 mmHg. There is no evidence of aortic regurgitation by color and spectral Doppler. The visualized portions of the thoracic aorta appear normal. Pulmonic Valve The pulmonary valve appears normal. There is no evidence of pulmonic stenosis. There is no evidence of pulmonary regurgitation by color and spectral Doppler. Pericardium There is no evidence of pericardial effusion. Interatrial Septum The interatrial septum appears normal. General Findings The image quality was good (2). Technique(s) used in the evaluation: Color flow Doppler and Spectral Doppler. The predominant rhythm during the study was sinus. Comparison Findings Compared to a prior report from 11/27/2012, septal wall motion abnormality not observed in this study and EF has normalized (55% from 40%). us Monserrat Sparks MD CV ECHO ORDERABLES Final Res ult documented in this encounter Visit Diagnoses Diagnosis Coronary arteriosclerosis Coronary atherosclerosis of unspecified type of vessel, grand traverse or graft Supraventricular extrasystoles Supraventricular premature beats Fatigue, unspecified type Palpitations Coronary arteriosclerosis Coronary atherosclerosis of unspecified type of vessel, grand traverse or graft Supraventricular extrasystoles Supraventricular premature beats Fatigue, unspecified type Palpitations documented in this encounter Care Teams Reproduction Artist Relationship Specialty Start Date End Date Praneeth Barrow DO [email or web address] PCP - General 11/08/17 documented as of this encounter Additional Source Comments The information contained in this document represents components of the legal health record. It is not the complete legal health record.[facility]
--- OUTSIDE RECORDS SUMMARY | 2025-09-14 14:31 | XMS_ITS | Encounter Summary ---
Author Organization [facility] Address [address] [place] [address] Phone Care Team Providers Care Metal Caster Name Role Phone Nitacecille Praneeth Yoon PRICE Primary Care Provider [phone] Reason for Referral * Outpatient Procedure - Closed Specialty Diagnoses / Procedures Referred By Geri austin Referred To Contact Radiology Diagnoses Abdominal aortic aneurysm (AAA) without rupture, unspecified part Procedures US Aorta Duplex Complete Sarai Link PA 6 [facility] [place] [address] [place] [address] Phone: tel: fax: Referral ID Status Reason Start Date Expiration Date Visits Re quested Visits Authorized [id number] Closed 12/29/2022 12/29/2023 1 1 Encounter Details Date Type Department Care Team (Latest Contact Info) Description 12/29/2022 Transcribe Orders Virtual Department [address] [place] [address] Sarai Link PA 6 [facility] [place] [address] [place] [address] Abdominal aortic aneurysm (AAA) without rupture, unspecified part (Primary Dx) Social History Tobacco Use Types [...] 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 on 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 Not on file documented as of this encounter Plan of Treatment Upcoming Encounters Date Type Department Care Team (Late st Contact Info) Description 11/17/2025 12:45 PM EST Office Visit [facility] [address] [facility] 3rd Floor, [address] [place], [place] [phone] Richar Drake DO 22 [facility] [address] [place], [place] [phone] [email or web address] documented as of this encounter Results * US Aorta Duplex Complete (01/26/2023 10:46 AM EDT) Anatomical Region Laterality Modality Aorta Ultrasound 01/26/2023 7:00 PM EDT Impressions 01/26/2023 7:05 PM EDT Mild interval increased caliber of abdominal aortic aneurysm increasing from 3.2 x 3.3 cm up to 3.7 x 3.8 cm. Stable mild enlargement of common iliac arteries currently measuring 1.0 x 1.4 and 1.4 x 1.5 cm on the right and left respectively. Narrative 01/26/2023 7:05 PM EDT US AORTA DUPLEX COMPLETE History: Abdominal aortic aneurysm follow-up. TECHNIQUE: A duplex ultrasound evaluation of the abdominal aorta and iliac arteries as well as the inferior vena cava was performed using a combination of abad scale imaging, color duplex and spectral Doppler analysis. COMPARISON: Aortic ultrasound 09/15/2019 and 09/24/2018. FINDINGS: Targeted ultrasound assessment of aorta and common iliac arteries shows dilation of the mid abdominal aorta measuring up to 3.7 x 3.8 cm AP and transverse diameter. Tapering of the distal abdominal aorta ectatic but below standard threshold for aneurysm at level of the bifurcation measuring 2.7 x 2.9 cm AP and transverse diameter. Mild enlargement of left common iliac artery measuring 1.5 x 1.4 cm and right common iliac artery measuring 1.0 x 1.4 cm. Previously abdominal aorta measured up to 3.2 x 3.3 cm and common iliac arteries measured 1.2 x 1.3 and 1.5 x 1.5 cm of the right and left respectively. Procedure Note Neville Altamirano MD - 01/26/2023 US AORTA DUPLEX COMPLETE History: Abdominal aortic aneurysm follow-up. TECHNIQUE: A duplex ultrasound evaluation of the abdominal aorta and iliacarteries as well as the inferior vena cava was performed using acombination of abad scale imaging, color duplex and spectral Doppleranalysis. COMPARISON: Aortic ultrasound 09/15/2019 and 09/24/2018. FINDINGS: Targeted ultrasound assessment of aorta and common iliac arteries showsdilation of the mid abdominal aorta measuring up to 3.7 x 3.8 cm AP andtransverse diameter. Tapering of the distal abdominal aorta ectatic butbelow standard threshold for aneurysm at level of the bifurcationmeasuring 2.7 x 2.9 cm AP and transverse diameter. Mild enlargement of left common iliac artery measuring 1.5 x 1.4 cm andright common iliac artery measuring 1.0 x 1.4 cm. Previously abdominal aorta measured up to 3.2 x 3.3 cm and common iliacarteries measured 1.2 x 1.3 and 1.5 x 1.5 cm of the right and leftrespectively. IMPRESSION: Mild interval increased caliber of abdominal aortic aneurysm increasingfrom 3.2 x 3.3 cm up to 3.7 x 3.8 cm. Stable mild enlargement of commoniliac arteries currently measuring 1.0 x 1.4 and 1.4 x 1.5 cm on the rightand left respectively. Sarai MAIER IMG US ABDOMEN Final Resul t documented in this encounter Visit Diagnoses Diagnosis Abdominal aortic aneurysm (AAA) without rupture, unspecified part- Primary Abdominal aortic aneurysm (AAA) without rupture, unspecified part documented in this encounter Care Teams Metal Caster Relationship Specialty Start Date End Date Praneeth Barrow DO PCP - General 11/08/17 documented as of this encounter Additional Source Comments The information contained in this document represents components of the legal health record. It is not the complete legal health record.[facility]
--- OUTSIDE RECORDS SUMMARY | 2025-09-14 14:31 | XMS_ITS | Encounter Summary ---
Author Organization [facility] Address [address] [place] [address] Care Team Providers Care Lime Slaker Name Role Phone Praneeth Barrow Primary Care Provider [phone] Encounter Details Date Type Department Care Team (Late st Contact Info) Description 10/23/2022 Telephone [facility] [address] [place] [address] Telephone Intake, Staff Social History Tobacco Use Types Packs/Day Years Used Date Smoking Tobacco: Light Smoker Cigarettes Smokeless Tobacco: Never Comments:: Alcohol Use Standard Drinks/Week Comments Yes 2 (1 standard drink = 0.6 oz pur e alcohol) Sex and Gender Information Value Date Recorded Sex Assigned at Male 07/03/2024 9:12 AM EDT Legal Sex Male 7:56 AM EDT Gender Identity Male 07/03/2024 9:12 AM EDT Sexual Orientation Straight 07/03/2024 9: 12 AM EDT documented as of this encounter Miscellaneous Notes * Telephone Encounter - Teresita Murphy - 11/17/2022 3:29 PM EST Called pt and lvm * Telephone Encounter - Dawn Stewart - 11/15/2022 11:43 AM EST PT's calling again about prescription and needs to schedule a follow up to have VNS checked. Please follow up at [phone]. * Telephone Encounter - Isabella Sharif MA - 10/23/2022 3:13 PM EST Called patients spouse, Amie, back to find out which RX needs refill and to find out more information re: VNS follow up needed No answer, left message for call back * Telephone Encounter - Dawn Pat - 10/23/2022 10:51 AM EST PT's calling needs to a prescription refilled and also needs a follow up with Dr. Valdes to have VNS checked. Please follow up with at [phone] (cell). documented in this encounter Plan of Treatment Upcoming Encounters Date Type Department Care Team (Late st Contact Info) Description 10/21/2025 10:00 AM EST Office Visit [facility] [address] [place] [address] Kaylin Lee MD [address] [place] [address] documented as of this encounter Visit Diagnoses Not on filedocumented in this encounter Care Teams Lime Slaker Relationship Specialty Start Date End Date Praneeth Barrow [address] [place] [address] PCP - General 05/24/17 documented as of this encounter
--- OUTSIDE RECORDS SUMMARY | 2025-09-14 14:31 | XMS_ITS | Encounter Summary ---
Author Organization [facility] Address [address] [place] [address] [place] [address] Phone Care Team Providers Care Business Analyst Sales Operations Name Role Phone NitaPraneeth oden Yoon PRICE Primary Care Provider [phone] Reason for Referral * MRI/CAT Scan - Closed Specialty Diagnoses / Procedures Referred By Geri austin Referred To Contact Radiology Diagnoses Low back pain, unspecified back pain laterality, unspecified chronicity, with sciatica presence unspecified Procedures CT Lumbar Spine Jaida Kunz CNP Phone: tel: fax: [email or web address] Referral ID Status Reason Start Date Expiration Date Visits Re quested Visits Authorized [id number] Closed 2019 2020 1 1 Encounter Details Date Type Department Care Team (Latest Contact Info) Description 2019 Transcribe Orders Virtual Department [address] [place] [address] Jaida Kunz CNP [address] [place] [address] [email or web address] Low back pain, unspecified back pain laterality, unspecified chronicity, with sciatica presence unspecified (Primary Dx) Social History Tobacco Use Types [...] 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 Not on file documented as of this encounter Plan of Treatment Upcoming Encounters Date Type Department Care Team (Late st Contact Info) Description 11/17/2025 12:45 PM EST Office Visit [facility] [address] [facility] 3rd Floor, [address] [place] [address] Nile Drake DO [address] [facility] [address] [place] [address] documented as of this encounter Results * CT LUMBAR SPINE WITHOUT CONTRAST (02/05/2019 10:42 AM EDT) Anatomical Region Laterality Modality L-spine Computed Tomogra phy 02/05/2019 10:5 5 AM EDT Impressions 02/05/2019 11:45 AM EDT Facet arthropathy with prominent hypertrophic changes leading to some mild anterolisthesis at L4-5. There is also some prominence of the ligamentum flavum, particularly on the right, with some uncovering of the disc space and disc bulging. In combination this leads to least moderate spinal stenosis at this level focally. No other canal compromise or prominent foraminal narrowing appreciated at other levels. Mild abdominal aortic aneurysm to at maximal diameter of 2.7 cm as best can be estimated on this study. Minor iliac artery ectasia. TOTAL CTDIvol: 30.2 mGy POS - [id number] Edited by: Jaycee Metz on 02/05/2019 11:31 AM Narrative 02/05/2019 11:45 AM EDT HISTORY: Low back pain COMPARISON: Radiograph January 27 TECHNIQUE: Unenhanced CT lumbar spine. Sagittal and coronal reformats generated. Automated exposure control utilized. FINDINGS: Cgniv-ky-wkii includes from T12-L1 disc space through S2. T12-L1: No canal or foraminal stenosis. No disc abnormality of concern identified. L1-2: No focal disc abnormality. No canal or foraminal stenosis of concern. No significant hypertrophic changes of facets. L2-3: No findings of concern. L3-4: No findings of concern. L4-5: There is more fat within the canal beginning at L4. Advanced facet arthropathy at L4-5 with vacuum phenomena noted on the left, leads to minor anterolisthesis of L4 on L5 and uncovering of the disc space. There is spinal stenosis with mass effect on the thecal sac at this level as a result. Some prominence of ligamentum flava towards the right contributes as well. L5-S1: There is mild central disc bulging. No prominent canal or foraminal stenosis. There is some slight facet sclerosis but no significant hypertrophic changes. Some minor degenerative change seen in the visualized SI joints. No bony lesions of concern. No compression deformity. There is some mild scoliosis convex left, apex L3-4 disc space. There is extensive atherosclerotic change in the aorta. There may be some ectasia of the aorta but it is not sufficiently within the aplrg-gz-afmc to determine. It measures up to at least 2.9 cm which may include some obliquity. Minor ectasia of the proximal iliac arteries also noted with atherosclerotic changes. No adenopathy or soft tissue masses appreciated in the vleri-ki-ihxj. No inflammatory changes in the dbsxi-xi-luuc. Procedure Note Nile Cuello MD - 02/05/2019 HISTORY: Low back pain COMPARISON: Radiograph January 27 TECHNIQUE: Unenhanced CT lumbar spine. Sagittal and coronal reformatsgenerated. Automated exposure control utilized. FINDINGS: Cndbu-nz-jppu includes from T12-L1 disc space through S2. T12-L1: No canal or foraminal stenosis. No disc abnormality of concernidentified. L1-2: No focal disc abnormality. No canal or foraminal stenosis ofconcern. No significant hypertrophic changes of facets. L2-3: No findings of concern. L3-4: No findings of concern. L4-5: There is more fat within the canal beginning at L4. Advanced facetarthropathy at L4-5 with vacuum phenomena noted on the left, leads tominor anterolisthesis of L4 on L5 and uncovering of the disc space. Thereis spinal stenosis with mass effect on the thecal sac at this level as aresult. Some prominence of ligamentum flava towards the right contributesas well. L5-S1: There is mild central disc bulging. No prominent canal or foraminalstenosis. There is some slight facet sclerosis but no significanthypertrophic changes. Some minor degenerative change seen in the visualized SI joints. No bonylesions of concern. No compression deformity. There is some mild scoliosisconvex left, apex L3-4 disc space. There is extensive atherosclerotic change in the aorta. There may be someectasia of the aorta but it is not sufficiently within the ggkmb-xr-nvbzhd determine. It measures up to at least 2.9 cm which may include someobliquity. Minor ectasia of the proximal iliac arteries also noted withatherosclerotic changes. No adenopathy or soft tissue masses appreciatedin the xvkya-xn-vbzj. No inflammatory changes in the scxup-vq-kagg. IMPRESSION: Facet arthropathy with prominent hypertrophic changes leading to some mildanterolisthesis at L4-5. There is also some prominence of the ligamentumflavum, particularly on the right, with some uncovering of the disc spaceand disc bulging. In combination this leads to least moderate spinalstenosis at this level focally. No other canal compromise or prominentforaminal narrowing appreciated at other levels. Mild abdominal aorticaneurysm to at maximal diameter of 2.7 cm as best can be estimated on thisstudy. Minor iliac artery ectasia. TOTAL CTDIvol: 30.2 mGy POS - [id number] Edited by: Jaycee Metz on 02/05/2019 11:31 AM Jaida Kunz LOSS MITIGATION SPECIALIST IMG CT XSPECIALTY ORDERABLE S Final Result documented in this encounter Visit Diagnoses Diagnosis Low back pain, unspecified back pain laterality, unspecified chronicity, with sciatica presence unspecified- Primary Low back pain, unspecified back pain laterality, unspecified chronicity, with sciatica presence unspecified documented in this encounter Care Teams Business Analyst Sales Operations Relationship Specialty Start Date End Date Praneeth Barrow DO [email or web address] PCP - General 11/08/17 documented as of this encounter Additional Source Comments The information contained in this document represents components of the legal health record. It is not the complete legal health record.[facility]
--- OUTSIDE RECORDS SUMMARY | 2025-09-14 14:31 | XMS_ITS | Encounter Summary ---
Author Organization [facility] Address [address] [place] [address] Phone Care Team Providers Care Millwright Apprentice Name Role Phone NitacecillePraneeth DO Primary Care Provider [phone] Reason for Referral * Outpatient Procedure - Closed Specialty Diagnoses / Procedures Referred By Geri austin Referred To Contact Radiology Diagnoses Abdominal aortic aneurysm (AAA) without rupture, unspecified part Procedures US Aorta Duplex Complete Sarai Link PA [address] [facility] [place] [address] [place] [address] Phone: tel: fax: Referral ID Status Reason Start Date Expiration Date Visits Re quested Visits Authorized [id number] Closed 01/30/2023 1 1 Encounter Details Date Type Department Care Team (Latest Contact Info) Description 01/30/2023 Transcribe Orders Virtual Department 30 [place] [address] Sarai Link PA [address] [place] [address] [place] [address] Abdominal aortic aneurysm (AAA) without rupture, unspecified [...] 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 [address] [place] [address] [email or web address] documented as of this encounter Results * US Aorta Duplex Complete (08/28/2023 3:21 PM EDT) Anatomical Region Laterality Modality Aorta Ultrasound 08/28/2023 5:15 PM EDT Impressions 08/28/2023 5:19 PM EDT Fusiform aneurysm of the abdominal aorta with eccentric thrombus measuring up to 3.6 cm. Follow-up surveillance with CTA or MRA given increase in size as compared to remote examinations and poor sensitivity sonographically. Narrative 08/28/2023 5:19 PM EDT US AORTA DUPLEX COMPLETE ULTRASOUND OF THE AORTA AND COMMON ILIAC ARTERIES AND IVC TECHNIQUE: Duplex US examination of the abdominal aorta was performed using a combination of abad scale, color and pulsed wave Doppler. INDICATION: Outside Radiology Order; abdominal aortic aneurysm without rupture. Peripheral arterial disease, atherosclerosis, question abdominal aorta aneurysm COMPARISON: Sonography 01/26/2023 FINDINGS: Technically adequate exam demonstrates: Examination of the abdominal aorta demonstrates a fusiform aneurysm. The abdominal aorta measures 2.9 cm proximally, 3.6 x 3.4 cm in its midportion, and 1. cm distally. The common iliac arteries are ectatic measuring 1.3 cm on the right and 1.5 cm on the left. Procedure Note Alma Stuart MD - 08/28/2023 US AORTA DUPLEX COMPLETE ULTRASOUND OF THE AORTA AND COMMON ILIAC ARTERIES AND IVC TECHNIQUE: Duplex US examination of the abdominal aorta was performedusing a combination of abad scale, color and pulsed wave Doppler. INDICATION: Outside Radiology Order; abdominal aortic aneurysm withoutrupture. Peripheral arterial disease, atherosclerosis, question abdominalaorta aneurysm COMPARISON: Sonography 01/26/2023 FINDINGS: Technically adequate exam demonstrates: Examination of the abdominal aorta demonstrates a fusiform aneurysm. Theabdominal aorta measures 2.9 cm proximally, 3.6 x 3.4 cm in itsmidportion, and 1. cm distally. The common iliac arteries are ectatic measuring 1.3 cm on the right and1.5 cm on the left. IMPRESSION: Fusiform aneurysm of the abdominal aorta with eccentric thrombus measuringup to 3.6 cm. Follow-up surveillance with CTA or MRA given increase insize as compared to remote examinations and poor sensitivitysonographically. us Sarai Jann MAIER IMG US ABDOMEN Final Resul t documented in this encounter Visit Diagnoses Diagnosis Abdominal aortic aneurysm (AAA) without rupture, unspecified part- Primary documented in this encounter Care Teams Millwright Apprentice Relationship Specialty Start Date End Date Praneeth Barrow DO [email or web address] PCP - General 11/08/17 documented as of this encounter Additional Source Comments The information contained in this document represents components of the legal health record. It is not the complete legal health record.[facility]
--- OUTSIDE RECORDS SUMMARY | 2025-09-14 14:31 | XMS_ITS | Encounter Summary ---
Author Organization [facility] Address [address] [place] [address] Phone Care Team Providers Care Grubber Name Role Phone Praneeth Barrow Primary Care Provider [phone] Encounter Details Date Type Department Care Team (Latest Contact Info) Description 03/15/2020 Transcribe Orders Virtual Department 30 [place] [address] Christine Rodriguez, ALYSHA 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 Not on file documented as of this encounter Plan of Treatment Upcoming Encounters Date Type Department Care Team (Late st Contact Info) Description 11/17/2025 12:45 PM EST Office Visit [facility] [address] [facility] [address], [address] [place] [address] Richar Drake, DO [address] [facility] [address] [place] [address] [email or web address] documented as of this encounter Results * XR CERVICAL SPINE 4-5 VIEWS (04/26/2020 11:01 AM EDT) Anatomical Region Laterality Modality C-spine Radiographic Macy ging 04/26/2020 12:1 0 PM EDT Impressions 04/26/2020 12:16 PM EDT Moderate to severe bilateral C3-C4 and C4-C5 neural foraminal stenosis secondary to degenerative uncovertebral and facet spurring. Fusion C4-C5 and C5-C6. Normal cervical spine alignment. POS - [id number] Narrative 04/26/2020 12:16 PM EDT EXAM: XR CERVICAL SPINE 4-5 VIEWS HISTORY: Neck pain. TECHNIQUE: AP, lateral, open-mouth odontoid, bilateral oblique views cervical spine. COMPARISON: 01/28/2013. FINDINGS: The prevertebral soft tissue outline is normal. There is anterior fusion hardware C4-C5 and C5-C6 with bone bridging. Normal cervical spine alignment. Degenerative endplate changes at C3-C4 with minor disc space narrowing, with degenerative concave inferior endplate. Normal odontoid process and C1-C2 alignment. Bilateral uncovertebral and facet spurring at C3-C4 and C4-C5 where there is moderate to severe bilateral neural foraminal stenosis. Mild bilateral neural foraminal stenosis at C5-C6. There is radiopaque mesh material in the occipital region and radiopaque leads in the LEFT side of the neck. Procedure Note Maral Freeman MD - 04/26/2020 EXAM: XR CERVICAL SPINE 4-5 VIEWS HISTORY: Neck pain. TECHNIQUE: AP, lateral, open-mouth odontoid, bilateral oblique viewscervical spine. COMPARISON: 01/28/2013. FINDINGS: The prevertebral soft tissue outline is normal. There is anterior fusion hardware C4-C5 and C5-C6 with bone bridging. Normal cervical spine alignment. Degenerative endplate changes at C3-C4 with minor disc space narrowing,with degenerative concave inferior endplate. Normal odontoid process and C1-C2 alignment. Bilateral uncovertebral and facet spurring at C3-C4 and C4-C5 where thereis moderate to severe bilateral neural foraminal stenosis. Mild bilateralneural foraminal stenosis at C5-C6. There is radiopaque mesh material in the occipital region and radiopaqueleads in the LEFT side of the neck. IMPRESSION: Moderate to severe bilateral C3-C4 and C4-C5 neural foraminal stenosissecondary to degenerative uncovertebral and facet spurring. Fusion C4-C5 and C5-C6. Normal cervical spine alignment. POS - [id number] February Michael ENCARNACION IMG XR SPINE Final Result documented in this encounter Visit Diagnoses Diagnosis Cervicalgia- Primary Cervicalgia documented in this encounter Care Teams Grubber Relationship Specialty Start Date End Date Praneeth Barrow DO [email or web address] PCP - General 11/08/17 documented as of this encounter Additional Source Comments The information contained in this document represents components of the legal health record. It is not the complete legal health record.[facility]
--- OUTSIDE RECORDS SUMMARY | 2025-09-14 14:31 | XMS_ITS | Encounter Summary ---
Author Organization [facility] Address [address] [place] [address] Phone Care Team Providers Care Polygraph Operator Name Role Phone Praneeth Barrow Primary Care Provider [phone] Encounter Details Date Type Department Care Team (Late st Contact Info) Description 12/24/2024 Procedure Pass 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 Not on file documented as of this encounter Plan of Treatment Upcoming Encounters Date Type Department Care Team (Late st Contact Info) Description 11/17/2025 12:45 PM EST Office Visit [facility] 22 [facility] 3rd Floor, [address] [place] [address] Richar Drake DO 22 [facility] [address] [place] [address] documented as of this encounter Visit Diagnoses Not on filedocumented in this encounter Care Teams Polygraph Operator Relationship Specialty Start Date End Date Praneeth Barrow DO PCP - General 11/08/17 documented as of this encounter Additional Source Comments The information contained in this document represents components of the legal health record. It is not the complete legal health record.[facility]
--- OUTSIDE RECORDS SUMMARY | 2025-09-14 14:31 | XMS_ITS | Encounter Summary ---
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 file Not on file documented as of this encounter Plan of Treatment Upcoming Encounters Date Type Department Care Team (Late st Contact Info) Description 11/17/2025 12:45 PM EST Office Visit [facility] 22 [facility] 3rd Floor, [address] [place] [address] Richar Drake, 22 [facility] [address] [place] [address] documented as of this encounter Results * XR FOOT 3 OR MORE VIEWS (RIGHT) (07/03/2023 10:33 AM EDT) Anatomical Region Laterality Modality Foot Right Computed Radiogr aphy 07/03/2023 12:4 0 PM EDT Impressions 07/03/2023 12:41 PM EDT No fracture or dislocation. Narrative 07/03/2023 12:41 PM EDT XR ANKLE 3 OR MORE VIEWS (RIGHT), XR FOOT 3 OR MORE VIEWS (RIGHT) COMPARISON: None FINDINGS: No fracture. Normal alignment. Symmetric ankle mortise. Normal joint spaces. Mild soft tissue swelling. Procedure Note Sudarshan Tse MD, JUSTIN - 07/03/2023 XR ANKLE 3 OR MORE VIEWS (RIGHT), XR FOOT 3 OR MORE VIEWS (RIGHT) COMPARISON: None FINDINGS: No fracture. Normal alignment. Symmetric ankle mortise. Normal jointspaces. Mild soft tissue swelling. IMPRESSION: No fracture or dislocation. Sarai MAIER IMG XR LOWER EXTREMITY Lola l Result * XR ANKLE 3 OR MORE VIEWS (RIGHT) (07/03/2023 10:31 AM EDT) Anatomical Region Laterality Modality Ankle Right Computed Radiogr aphy 07/03/2023 12:4 0 PM EDT Impressions 07/03/2023 12:41 PM EDT No fracture or dislocation. Narrative 07/03/2023 12:41 PM EDT XR ANKLE 3 OR MORE VIEWS (RIGHT), XR FOOT 3 OR MORE VIEWS (RIGHT) COMPARISON: None FINDINGS: No fracture. Normal alignment. Symmetric ankle mortise. Normal joint spaces. Mild soft tissue swelling. Procedure Note Sudarshan Tse MD, JUSTIN - 07/03/2023 XR ANKLE 3 OR MORE VIEWS (RIGHT), XR FOOT 3 OR MORE VIEWS (RIGHT) COMPARISON: None FINDINGS: No fracture. Normal alignment. Symmetric ankle mortise. Normal jointspaces. Mild soft tissue swelling. IMPRESSION: No fracture or dislocation. Sarai MAIER IMG XR LOWER EXTREMITY Lola l Result documented in this encounter Visit Diagnoses Diagnosis Unspecified fall, initial encounter- Primary Unspecified fall, initial encounter Unspecified fall, initial encounter documented in this encounter Care Teams Airconditioning Engineer Relationship Specialty Start Date End Date Praneeth Barrow DO [email or web address] PCP - General 11/08/17 documented as of this encounter Additional Source Comments The information contained in this document represents components of the legal health record. It is not the complete legal health record.[facility]
--- OUTSIDE RECORDS SUMMARY | 2025-09-14 14:31 | XMS_ITS | Encounter Summary ---
Author Organization [facility] Address [address] [place] [address] Phone Care Team Providers Care Extension Service Specialist In Charge Name Role Phone Praneeth Barrow DO Primary Care Provider [phone] Reason for Referral * MRI/CAT Scan - Closed Specialty Diagnoses / Procedures Referred By Geri austin Referred To Contact Radiology Diagnoses Simple chronic bronchitis Procedures CT Chest Praneeth Barrow DO [address] [facility] [place] [address] [place] [address] Phone: tel: fax: [email or web address] Referral ID Status Reason Start Date Expiration Date Visits Re quested Visits Authorized [id number] Closed 12/21/2024 12/21/2025 1 1 Encounter Details Date Type Department Care Team (Latest Contact Info) Description 12/21/2024 Transcribe Orders Virtual Department 30 [place] [address] Sarai Link PA [address] [place] [address] [place] [address] Simple chronic bronchitis (Primary Dx) Social History Tobacco Use Types [...] 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 Not on file documented as of this encounter Plan of Treatment Upcoming Encounters Date Type Department Care Team (Late st Contact Info) Description 11/17/2025 12:45 PM EST Office Visit [facility] [address] [place] [address] [address]rd Floor, [address] [place], [place] [id number] Richar Drake DO [address] [place] [address] [place] [address] [email or web address] documented as of this encounter Results * CT CHEST WITHOUT CONTRAST (12/30/2024 2:24 PM EST) Anatomical Region Laterality Modality Chest Computed Tomogra phy 01/01/2025 4:31 PM EST Impressions 01/01/2025 4:50 PM EST 1. Right upper and bilateral lower lobe small nonspecific hazy parenchymal opacities are age indeterminate and without features of an acute/active process. 2. No lung consolidation or suspicious lung mass. 3. Multivessel coronary calcification indicating increased likelihood of significant coronary artery disease. Narrative 01/01/2025 4:[address] CHEST WITHOUT CONTRAST Referring clinician's provided indication for this examination in [facility]: Outside Radiology Order; Simple chronic bronchitis Additional clinical information obtained from EMR: Patient with obstructive sleep apnea, chronic sinusitis, chronic bronchitis, prior history of brain injury, seizure disorder and chronic indwelling MASTER RIGGER shunt. TECHNIQUE: Multidetector CT of the chest was performed without intravenous contrast using tailored dose modulation. COMPARISON: Two-view chest x-ray 12/04/2023 and portable x-rays 08/28/2019 and 06/27/2018. FINDINGS: Devices/Tubes/Lines: Left chest wall vagus nerve stimulator. MASTER RIGGER shunt tubing crosses right anterior aspect of the chest. Lungs: Hazy groundglass opacities evident most notable right upper lobe, right lower lobe and left lower lobe (series 5, image 84, 159, 228, 271 and 307). No consolidation. No suspicious mass. Normal caliber airways. Mild basilar reticular opacities. Pleura: Normal. No pleural effusion or pneumothorax. Mediastinum: Three-vessel coronary artery calcification. Mild mural calcification affects normal caliber thoracic aorta. No mediastinal mass, focal fluid collection or pericardial effusion. Lymph Nodes: Normal. No enlarged supraclavicular, axillary, mediastinal, or hilar lymph nodes. Upper Abdomen: Normal. No abnormality detected in the visualized upper abdomen. Absence of intravenous contrast limits sensitivity for detecting solid organ findings. Chest Wall: Normal. No chest wall mass. Bones: No acute abnormality. No suspicious lytic or blastic lesions. Procedure Note Neville Altamirano MD - 01/01/2025 CT CHEST WITHOUT CONTRAST Referring clinician's provided indication for this examination in Epic:Outside Radiology Order; Simple chronic bronchitis Additional clinical information obtained from EMR: Patient withobstructive sleep apnea, chronic sinusitis, chronic bronchitis, priorhistory of brain injury, seizure disorder and chronic indwelling VPshunt. TECHNIQUE: Multidetector CT of the chest was performed without intravenouscontrast using tailored dose modulation. COMPARISON: Two-view chest x-ray 12/04/2023 and portable x-rays 08/28/2019and 06/27/2018. FINDINGS: Devices/Tubes/Lines: Left chest wall vagus nerve stimulator. MASTER RIGGER shunttubing crosses right anterior aspect of the chest. Lungs: Hazy groundglass opacities evident most notable right upper lobe,right lower lobe and left lower lobe (series 5, image 84, 159, 228, 271and 307). No consolidation. No suspicious mass. Normal caliber airways.Mild basilar reticular opacities. Pleura: Normal. No pleural effusion or pneumothorax. Mediastinum: Three-vessel coronary artery calcification. Mild muralcalcification affects normal caliber thoracic aorta. No mediastinal mass,focal fluid collection or pericardial effusion. Lymph Nodes: Normal. No enlarged supraclavicular, axillary, mediastinal,or hilar lymph nodes. Upper Abdomen: Normal. No abnormality detected in the visualized upperabdomen. Absence of intravenous contrast limits sensitivity for detectingsolid organ findings. Chest Wall: Normal. No chest wall mass. Bones: No acute abnormality. No suspicious lytic or blastic lesions. IMPRESSION: 1. Right upper and bilateral lower lobe small nonspecific hazyparenchymal opacities are age indeterminate and without features of anacute/active process. 2. No lung consolidation or suspicious lung mass. 3. Multivessel coronary calcification indicating increased likelihood ofsignificant coronary artery disease. us Praneeth Barrow DO IMG CT CHEST Final Result documented in this encounter Visit Diagnoses Diagnosis Simple chronic bronchitis- Primary Simple chronic bronchitis documented in this encounter Care Teams Extension Service Specialist In Charge Relationship Specialty Start Date End Date Praneeth Barrow DO [email or web address] PCP - General 11/08/17 documented as of this encounter Additional Source Comments The information contained in this document represents components of the legal health record. It is not the complete legal health record.[facility]
--- OUTSIDE RECORDS SUMMARY | 2025-09-14 14:31 | XMS_ITS | Encounter Summary ---
Author Organization [facility] Address [address] [place] [address] Phone Care Team Providers Care Slotter Operator Helper Name Role Phone Praneeth Barrow Primary Care Provider [phone] Encounter Details Date Type Department Care Team (Late st Contact Info) Description 12/21/2024 Procedure Pass [facility], Ct Scan - [facility] [address] [place] [address] Social History Tobacco Use Types Packs/Day Years [...] Description 11/17/2025 12:45 PM EST Office Visit [facility] 22 [facility] 3rd Floor, [address] [place] [address] Richar Drake DO 22 [facility] [address] [place] [address] documented as of this encounter Visit Diagnoses Not on filedocumented in this encounter Care Teams Slotter Operator Helper Relationship Specialty Start Date End Date Praneeth Barrow DO PCP - General 11/08/17 documented as of this encounter Additional Source Comments The information contained in this document represents components of the legal health record. It is not the complete legal health record.[facility]
--- OUTSIDE RECORDS SUMMARY | 2025-09-14 14:31 | XMS_ITS | Encounter Summary ---
Author Organization [facility] Address [address] [place] [address] Phone Care Team Providers Care Financial Retirement Plan Specialist Name Role Phone Praneeth Barrow Primary Care Provider [phone] Encounter Details Date Type Department Care Team (Latest Contact Info) Description 09/01/2019 Transcribe Orders Virtual Department 30 [place] [address] Christine Rodriguez, ALYSHA Peters. 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 Not on file documented as of this encounter Plan of Treatment Upcoming Encounters Date Type Department Care Team (Late st Contact Info) Description 11/17/2025 12:45 PM EST Office Visit [facility] [address] [place] [address] 3rd Floor, [address] [place] [address] Richar Drake DO 22 [facility] [address] [place] [address] [email or web address] documented as of this encounter Visit Diagnoses Diagnosis Abdominal aortic aneurysm without rupture- Primary Abdominal aneurysm without mention of rupture documented in this encounter Care Teams Financial Retirement Plan Specialist Relationship Specialty Start Date End Date Praneeth Barrow DO [email or web address] PCP - General 11/08/17 documented as of this encounter Additional Source Comments The information contained in this document represents components of the legal health record. It is not the complete legal health record.[facility]
--- OUTSIDE RECORDS SUMMARY | 2025-09-14 14:31 | XMS_ITS | Encounter Summary ---
Author Organization [facility] Address [address] [place] [address] Phone Care Team Providers Care Arc Cutter Plasma Arc Name Role Phone Praneeth Barrow Primary Care Provider [phone] Encounter Details Date Type Department Care Team (Latest Contact Info) Description 10/24/2022 Transcribe Orders Virtual Department [address] [place] [address] Sarai Link PA 6 [facility] [place] [address] [place] [address] Atherosclerosis of [place] coronary artery without angina pectoris, unspecified whether [place] or transplanted heart (Primary Dx) Social History Tobacco Use Types [...] 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 Not on file documented as of this encounter Plan of Treatment Upcoming Encounters Date Type Department Care Team (Late st Contact Info) Description 11/17/2025 12:45 PM EST Office Visit [facility] [address] [place] [address] 3rd Floor, [address] [place] [address] Richar Drake DO 22 [facility] [address] [place] [address] [email or web address] documented as of this encounter Visit Diagnoses Diagnosis Atherosclerosis of [place] coronary artery without angina pectoris, unspecified whether [place] or transplanted heart- Primary documented in this encounter Care Teams Arc Cutter Plasma Arc Relationship Specialty Start Date End Date Praneeth Barrow DO [email or web address] PCP - General 11/08/17 documented as of this encounter Additional Source Comments The information contained in this document represents components of the legal health record. It is not the complete legal health record.[facility]
--- OUTSIDE RECORDS SUMMARY | 2025-09-14 14:31 | XMS_ITS | Encounter Summary ---
Author Organization [facility] Address [address] [place] [address] Phone Care Team Providers Care Sales Manager [place] Name Role Phone Praneeth Barrow Primary Care Provider [phone] Encounter Details Date Type Department Care Team (Late st Contact Info) Description 09/24/2024 Procedure Pass [facility], Ct Scan - [facility] [address] [place] [address] Social History Tobacco Use Types Packs/Day Years [...] Description 11/17/2025 12:45 PM EST Office Visit [facility] 22 [facility] 3rd Floor, [address] [place] [address] Richar Drake DO 22 [facility] [address] [place] [address] documented as of this encounter Visit Diagnoses Not on filedocumented in this encounter Care Teams Sales Manager [place] Relationship Specialty Start Date End Date Praneeth Barrow DO PCP - General 11/08/17 documented as of this encounter Additional Source Comments The information contained in this document represents components of the legal health record. It is not the complete legal health record.[facility]
--- OUTSIDE RECORDS SUMMARY | 2025-09-14 14:31 | XMS_ITS | Encounter Summary ---
Author Organization [facility] Address [facility] [address] [place] [address] Phone Care Team Providers Care Rack Loader Name Role Phone Praneeth Barrow Primary Care Provider [phone] Encounter Details Date Type Department Care Team (Late st Contact Info) Description 11/28/2022 Ancillary Orders [facility], X-Ray - [address] [address] Deonna Cheng, BODYWORK THERAPIST [address] [place] [phone] 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 Not on file Not on file documented as of this encounter Plan of Treatment Upcoming Encounters Date Type Department Care Team (Late st Contact Info) Description 11/17/2025 12:45 PM EST Office Visit [facility] [address] [place] [address] 3rd Floor, [address] [place] [address] Richar Drake, 22 [facility] [address] [place] [address] [email or web address] documented as of this encounter Results * XR CERVICAL SPINE 4-5 VIEWS (11/28/2022 3:08 PM EST) Anatomical Region Laterality Modality C-spine Computed Radiogr aphy 11/28/2022 6:19 PM EST Impressions 11/28/2022 6:23 PM EST Postsurgical and degenerative changes in the cervical and thoracic spine. No acute osseous abnormality. Narrative 11/28/2022 6:23 PM EST XR THORACIC SPINE 3 VIEW, XR CERVICAL SPINE 4-5 VIEWS COMPARISON: XR THORACIC SPINE 2 VIEW FINDINGS: Cervical spine: Patient is status post anterior cervical discectomy and fusion at C4-5 and C5-6. No spondylolisthesis. Vertebral body heights are relatively preserved. Moderate degenerative disc disease at the C3-4 junctional level. Moderate facet arthropathy at C7-T1. The open-mouth view reveals normal alignment of the C1 lateral masses on C2, however, the tip of the dens is not well assessed due to superimposition. Limited oblique views. Likely ROENTGENOLOGY TEACHER shunt is partially visualized. Additional postsurgical changes in the suboccipital region. Additional device seen overlying the left base of neck. Partially visualized lung apices are clear. Thoracic spine: No spondylolisthesis. Vertebral body heights are maintained. Moderate degenerative disc disease in the upper thoracic spine. Diffuse osseous demineralization. Procedure Note Corey Hodgson MD - 11/28/2022 XR THORACIC SPINE 3 VIEW, XR CERVICAL SPINE 4-5 VIEWS COMPARISON: XR THORACIC SPINE 2 VIEW FINDINGS: Cervical spine: Patient is status post anterior cervical discectomy andfusion at C4-5 and C5-6. No spondylolisthesis. Vertebral body heights arerelatively preserved. Moderate degenerative disc disease at the C3-4junctional level. Moderate facet arthropathy at C7-T1. The open-mouth viewreveals normal alignment of the C1 lateral masses on C2, however, the tipof the dens is not well assessed due to superimposition. Limited obliqueviews. Likely ROENTGENOLOGY TEACHER shunt is partially visualized. Additional postsurgical changesin the suboccipital region. Additional device seen overlying the left baseof neck. Partially visualized lung apices are clear. Thoracic spine: No spondylolisthesis. Vertebral body heights aremaintained. Moderate degenerative disc disease in the upper thoracicspine. Diffuse osseous demineralization. IMPRESSION: Postsurgical and degenerative changes in the cervical and thoracic spine.No acute osseous abnormality. 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 It is not the complete legal health record.[facility]
--- OUTSIDE RECORDS SUMMARY | 2025-09-14 14:31 | XMS_ITS | Encounter Summary ---
Author Organization [facility] Address [address] [place] [address] Phone Care Team Providers Care Chuck Wagon Cook Name Role Phone [place] Praneeth Yoon PRICE Primary Care Provider [phone] Encounter Details Date Type Department Care Team (Late st Contact Info) Description 09/15/2019 Ancillary Orders Virtual Department [address] [place] [address] Christine Rodriguez, ALYSHA [address]. 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 file Not on file documented as of this encounter Plan of Treatment Upcoming Encounters Date Type Department Care Team (Late st Contact Info) Description 11/17/2025 12:45 PM EST Office Visit [facility] 3rd Floor, [address] [place] [address] Richar Drake DO 22 [facility] [address] [place] [address] [email or web address] documented as of this encounter Results * US Aorta Duplex Scan Complete (09/15/2019 11:54 AM EST) Anatomical Region Laterality Modality Aorta Ultrasound 09/15/2019 12:3 3 PM EST Addenda Addendum by Rufino Andrade MD on 10/06/2019 11:01 AM EST COMPARISON: Aortic ultrasound September 24, 2018. FINDINGS: The proximal abdominal aorta has a transverse dimension of 2.3 cm while the mid abdominal aorta has a transverse dimension of 3.2 cm >>> AND <<< the distal abdominal aorta has a transverse dimension of 2.1 cm. There is a mild increase in calcific plaquing in the mid abdominal aorta >>> WHERE THERE <<< is a fusiform dilatation noted. Generally speaking little variation is noted. IMPRESSION: Fusiform infrarenal abdominal aortic aneurysm measuring up to 3.2 cm in transverse dimension. >>> PLAQUING <<< is most prominent posteriorly in the aneurysm with a maximum luminal diameter of 2.2 cm currently. Little variation is seen relative to prior imaging. S/S: Follow-up abdominal aortic aneurysm. POS - [id number] Edited by: Ria Sparks on 09/27/2019 11:35 AM Impressions 09/15/2019 12:37 PM EST Fusiform infrarenal abdominal aortic aneurysm measuring up to 3.2 cm in transverse dimension. Finding is most prominent posteriorly in the aneurysm with a maximum luminal diameter of 2.2 cm currently. Little variation is seen relative to prior imaging. S/S: Follow-up abdominal aortic aneurysm. POS - [id number] Narrative 09/15/2019 12:37 PM EST COMPARISON: Aortic ultrasound September 24, 2018 FINDINGS: The proximal abdominal aorta has a transverse dimension of 2.3 cm while the mid abdominal aorta has a transverse dimension of 3.2 cm in the distal abdominal aorta has a transverse dimension of 2.1 cm. There is a mild increase in calcific plaquing in the mid abdominal aorta with is a fusiform dilatation noted. Generally speaking little variation is noted. Procedure Note Rufino Andrade MD - 09/15/2019 COMPARISON: Aortic ultrasound September 24, 2018 FINDINGS: The proximal abdominal aorta has a transverse dimension of 2.3 cm whilethe mid abdominal aorta has a transverse dimension of 3.2 cm in the distalabdominal aorta has a transverse dimension of 2.1 cm. There is a mildincrease in calcific plaquing in the mid abdominal aorta with is afusiform dilatation noted. Generally speaking little variation is noted. IMPRESSION: Fusiform infrarenal abdominal aortic aneurysm measuring up to 3.2 cm intransverse dimension. Finding is most prominent posteriorly in theaneurysm with a maximum luminal diameter of 2.2 cm currently. Littlevariation is seen relative to prior imaging. S/S: Follow-up abdominal aortic aneurysm. POS - [id number] February Michael ENCARNACION IMG US ABDOMEN Edited Resul t - Final documented in this encounter Visit Diagnoses Diagnosis Abdominal aortic aneurysm without rupture Abdominal aneurysm without mention of rupture Abdominal aortic aneurysm without rupture Abdominal aneurysm without mention of rupture documented in this encounter Care Teams Chuck Wagon Cook Relationship Specialty Start Date End Date Praneeth Barrow DO PCP - General 11/08/17 documented as of this encounter Additional Source Comments The information contained in this document represents components of the legal health record. It is not the complete legal health record.[facility]
--- OUTSIDE RECORDS SUMMARY | 2025-09-14 14:31 | XMS_ITS | Encounter Summary ---
Author Organization 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 Not on file documented as of this encounter Plan of Treatment Upcoming Encounters Date Type Department Care Team (Late st Contact Info) Description 11/17/2025 12:45 PM EST Office Visit [facility] 22 [facility] 3rd Floor, [address] [place] [address] Richar Drake DO [address] [address] documented as of this encounter Visit Diagnoses Diagnosis Coronary arteriosclerosis Coronary atherosclerosis of unspecified type of vessel, kenaitze or graft Supraventricular extrasystoles Supraventricular premature beats documented in this encounter Care Teams Insole And Heel Stiffener Relationship Specialty Start Date End Date Praneeth Barrow DO [email or web address] PCP - General 11/08/17 documented as of this encounter Additional Source Comments The information contained in this document represents components of the legal health record. It is not the complete legal health record.[facility]
--- OUTSIDE RECORDS SUMMARY | 2025-09-14 14:31 | XMS_ITS | Clinical Summary ---
Author Organization [facility] Address [address] [place] [address] Care Team Providers Care Ell Teacher Name Role Phone Unavailable Primary Care Provider Unavailabl e Social History Tobacco Use Types Packs/Day Years Used Date Smoking Tobacco: Never Assessed Sex and Gender Information Value Date Recorded Sex Assigned at Not on file Legal Sex Male 8:56 PM EST Gender Identity Not on file Sexual Orientation Not on file Plan of Treatment Health Maintenance Due Date Last Done Comments Colorectal Cancer Screening: Colonoscopy 1950 DTaP,Tdap,and Td Vaccines (1 - Tdap) 01/28/1971 Pneumococcal Vaccine: 50+ Ye ars (1 of 1 - PCV) 01/28/2002 Zoster Vaccines (1 of 2) 01/28/2002 Abdominal Aortic Aneurysm (A AA) Screen 11/30/2023 Cholesterol Screening (Lipid Panel) 11/30/2023 Falls Risk Assessment 11/30/2023 Hepatitis C Screening 11/30/2023 Social Influencers of Health Screening 11/30/2023 Depression Screening 11/05/2024 COVID-19 Vaccine (1 - 2023-2 5 season) 2025 Influenza Vaccine (#1) 2025 RSV Immunization Adult Patie nts (1 - 1-dose 75+ series) 01/28/2027 HIB Vaccines Aged Out No longer eligi ble based on patient's age to complete this topic HPV Vaccines Aged Out No longer eligi ble based on patient's age to complete this topic Hepatitis A Vaccines Aged Out No long er eligible based on patient's age to complete this topic Hepatitis B Vaccines Aged Out No long er eligible based on patient's age to complete this topic IPV Vaccines Aged Out No longer eligi ble based on patient's age to complete this topic MMR Vaccines Aged Out No longer eligi ble based on patient's age to complete this topic Meningococcal ACWY Vaccine Aged Out N o longer eligible based on patient's age to complete this topic Meningococcal B Vaccine Aged Out No l onger eligible based on patient's age to complete this topic RSV Immunization Patients Un bharathi 20 months Aged Out No longer eligible b ased on patient's age to complete this topic Varicella Vaccines Aged Out No longer eligible based on patient's age to complete this topic Advance Directives Documents on File Type Date Recorded 

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
--- OUTSIDE RECORDS SUMMARY | 2025-09-14 14:32 | XMS_ITS | Encounter Summary ---
Author Organization [facility] Address [address] [place] [address] Phone Care Team Providers Care Log Inspector Name Role Phone Praneeth Barrow Primary Care Provider [phone] Encounter Details Date Type Department Care Team (Late Contact Info) Description 08/27/2018 Ancillary Orders Virtual Department [address] [place], [place] [id number] Christine Rodriguez, ALYSHA [address] [place] [address] [email or web address] Acute low back pain, unspecified back pain laterality, with sciatica presence unspecified Social History Tobacco Use Types Packs/Day Years [...] Description 11/17/2025 12:45 PM EST Office Visit [facility] [address] [place] [address] [address] Floor, [address] [place] [address] Richar Drake, DO [address] [facility] [address] [place] [address] [email or web address] documented as of this encounter Results * XR LUMBOSACRAL SPINE 4 OR MORE VIEWS (09/05/2018 2:29 PM EDT) Anatomical Region Laterality Modality L-spine Radiographic Macy ging 09/05/2018 2:37 PM EDT Impressions 09/05/2018 2:45 PM EDT Lumbar spondylosis with minor spurring and facet arthropathy similar to that seen previously. Findings are most prominent in the lower lumbar spine on the left and right with facet arthropathy in particular. No acute interval compression fracture is seen. The patient has an abdominal aortic aneurysm present which is unchanged on plain film appearance. S/S: Acute onset low back pain, lumbar spondylosis, facet arthropathy POS - [id number] Narrative 09/05/2018 2:45 PM EDT COMPARISON: Lumbar spine x-ray June 29, 2018 FINDINGS: AP, lateral, both oblique, and coned-down views of the lumbar spine are obtained. There is relative preservation of disc space height with a minor grade 1 anterior spondylolisthesis of L4 on L5 consistent with facet arthropathy. The pedicles appear intact. The SI joints are unremarkable. On oblique views there is lower lumbar facet joint sclerosis. No pars defects are seen. The patient has a vena caval filter. This was evident previously. There is a 4.1 cm mid abdominal aortic aneurysm present which is unchanged. Procedure Note Rufino Andrade MD - 09/05/2018 COMPARISON: Lumbar spine x-ray June 29, 2018 FINDINGS: AP, lateral, both oblique, and coned-down views of the lumbar spine areobtained. There is relative preservation of disc space height with a minor grade 1anterior spondylolisthesis of L4 on L5 consistent with facetarthropathy. The pedicles appear intact. The SI joints are unremarkable. On oblique views there is lower lumbar facet joint sclerosis. No parsdefects are seen. The patient has a vena caval filter. This was evident previously. There castillo 4.1 cm mid abdominal aortic aneurysm present which is unchanged. IMPRESSION: Lumbar spondylosis with minor spurring and facet arthropathy similar tothat seen previously. Findings are most prominent in the lower lumbarspine on the left and right with facet arthropathy in particular. No acuteinterval compression fracture is seen. The patient has an abdominal aortic aneurysm present which is unchanged onplain film appearance. S/S: Acute onset low back pain, lumbar spondylosis, facet arthropathy POS - [id number] February Michael ENCARNACION IMG XR SPINE Final Result documented in this encounter Visit Diagnoses Diagnosis Acute low back pain, unspecified back pain laterality, with sciatica presence unspecified Acute low back pain, unspecified back pain laterality, with sciatica presence unspecified documented in this encounter Care Teams Log Inspector Relationship Specialty Start Date End Date Praneeth Barrow DO [email or web address] PCP - General 11/08/17 documented as of this encounter Additional Source Comments The information contained in this document represents components of the legal health record. It is not the complete legal health record.[facility]
--- OUTSIDE RECORDS SUMMARY | 2025-09-14 14:32 | XMS_ITS | Encounter Summary ---
Author Organization [facility] Address [address] [place] [address] Phone Care Team Providers Care Software Development Test Engineer Name Role Phone Praneeth Barrow Primary Care Provider [phone] Encounter Details Date Type Department Care Team ([facility] st Contact Info) Description 09/14/2025 Telephone CD Pulmonary, Allergy and Critical Care Medicine [address] [place] [address] Parth Giles MD 10 [facility] 2nd [place] [address] [email or web address] Social History Tobacco Use Types Packs/Day Years [...] 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 Not on file documented as of this encounter Progress Notes * Ibis Larkin - 09/14/2025 1:45 PM EST Received a referral--faxed PCP requesting they place an order for a PFT--confirmation rec'd 1:41pm documented in this encounter Plan of Treatment Upcoming Encounters Date Type Department Care Team (Late st Contact Info) Description 11/17/2025 12:45 PM EST Office Visit [facility] 22 [facility] 3rd [facility], [address] [place] [address] Richar Drake DO 22 [facility] [address] [place] [address] documented as of this encounter Visit Diagnoses Not on filedocumented in this encounter Care Teams Software Development Test Engineer Relationship Specialty Start Date End Date Praneeth Barrow DO PCP - General 11/08/17 documented as of this encounter Additional Source Comments The information contained in this document represents components of the legal health record. It is not the complete legal health record.[facility]
--- OUTSIDE RECORDS SUMMARY | 2025-09-14 14:32 | XMS_ITS | Encounter Summary ---
Author Organization [facility] Address [address] [place] [address] Phone Care Team Providers Care Assembler Mechanical Ordnance Name Role Phone NitacecillePraneeth DO Primary Care Provider [phone] Reason for Referral * Consultation (Routine) - New Request Specialty Diagnoses / Procedures Referred By Geri austin Referred To Contact Pulmonary Disease Sarai Link PA [address] [place] [address] Phone: tel: fax: [address] [address] Phone: tel: Referral ID Status Reason Start Date Expiration Date V isits Requested Visits Authorized [id number] New Request 09/14/2025 09/14/2026 1 1 Encounter Details Date Type Department Care Team (Late st Contact Info) Description 09/14/2025 Transcribe Orders [facility] Pulmonary, Allergy and Critical Care Medicine [address] [place] [address] Sarai Link PA 6 [facility] [place] [address] Social History Tobacco Use Types Packs/Day Years [...] 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 file documented as of this encounter Plan of Treatment Upcoming Encounters Date Type Department Care Team (Late st Contact Info) Description 11/17/2025 12:45 PM EST Office Visit [facility] [address] [facility] 3rd [facility], [address] [place] [address] Richar Drake DO 22 [facility] [address] [place] [address] [email or web address] Scheduled Referrals Name Type Priority Associated Diagnoses Order Schedule Ambulatory referral to [facility] Pulmonology Outpatient Referral Routine Ordered: 09/14/2025 documented as of this encounter Visit Diagnoses Not on filedocumented in this encounter Care Teams Assembler Mechanical Ordnance Relationship Specialty Start Date End Date Praneeth Barrow DO PCP - General 11/08/17 documented as of this encounter Additional Source Comments The information contained in this document represents components of the legal health record. It is not the complete legal health record.[facility]
--- OUTSIDE RECORDS SUMMARY | 2025-09-14 14:32 | XMS_ITS | Encounter Summary ---
Author Organization [facility] Address [address] [place] [address] Phone Care Team Providers Care Cell Assembly Pinner Name Role Phone Praneeth Barrow DO Primary Care Provider [phone] Reason for Referral * MRI/CAT Scan - Closed Specialty Diagnoses / Procedures Referred By Geri austin Referred To Contact Radiology Diagnoses Coronary arteriosclerosis Procedures [place] Stress Result for Nuclear Stress Test Richar Drake DO 22 [facility] [address] [place] [address] Phone: tel: fax: mailto: Referral ID Status Reason Start Date Expiration Date Visits Re quested Visits Authorized [id number] Closed 07/09/2025 1 1 Encounter Details Date Type Department Care Team (Latest Contact Info) Description 07/09/2025 Ancillary Orders [facility] 22 [facility] 3rd Floor, [address] [place] [address] Richar Drake DO 22 [facility] [address] [place] [phone] [email or web address] Coronary arteriosclerosis (Primary Dx) Social History Tobacco Use Types [...] 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 Not on file documented as of this encounter Plan of Treatment Upcoming Encounters Date Type Department Care Team (Late st Contact Info) Description 11/17/2025 12:45 PM EST Office Visit [facility] [address] [facility] 3rd Floor, [address] [place] [address] Richar Drake DO 22 [facility] [address] [place] [phone] documented as of this encounter Results * NC Stress Result for Nuclear Stress Test (07/09/2025 1:15 PM EDT) Max Predicted Heart Rate 147 bpm [facility] Max BP Systolic 146 mmHg [facility] Max BP Diastolic 60 mmHg [facility] Max HR 123 BPM [facility] Resting HR 63 BPM [facility] Resting BP Systolic 128 mmHg [facility] Resting BP Diastolic 70 mmHg [facility] Peak METS 1.0 METS [facility] Peak HR 110 BPM [facility] Peak BP Systolic 136 mmHg [facility] Peak BP Diastolic 60 mmHg [facility] Anatomical Region Laterality Modality Heart Other 07/09/2025 [...] by injection of Tc99m Sestamibi by Dayan x ray technologist. 1. EKG - Baseline EKG showed sinus [...] predicted heart rate. Rate pressure product was [id number]. Richar Drake DO CV NM CARDIAC Final Result documented in this encounter Visit Diagnoses Diagnosis Coronary arteriosclerosis- Primary Coronary atherosclerosis of unspecified type of vessel, [place] or graft Coronary arteriosclerosis Coronary atherosclerosis of unspecified type of vessel, [place] or graft documented in this encounter Care Teams Cell Assembly Pinner Relationship Specialty Start Date End Date Praneeth Barrow DO PCP - General 11/08/17 documented as of this encounter Additional Source Comments The information contained in this document represents components of the legal health record. It is not the complete legal health record.[facility]
--- OUTSIDE RECORDS SUMMARY | 2025-09-14 14:32 | XMS_ITS | Encounter Summary ---
Author Organization [facility] Address [address] [place] [address] Phone Care Team Providers Care Rubber Flap Cutter Name Role Phone Praneeth Barrow DO Primary Care Provider [phone] Encounter Details Date Type Department Care Team (Late st Contact Info) Description 06/27/2018 Procedure Pass [facility], Ct Scan - [address] [address] Social History Tobacco Use Types Packs/Day Years Used Date Smoking Tobacco: Heavy Smoker Cigarettes Smokeless Tobacco: Never Alcohol Use Standard Drinks/Week Comments No 0 (1 standard drink = 0.6 oz pur e alcohol) Sex and Gender Information Value Date Recorded Sex Assigned at Male 06/27/2018 9:34 PM EDT Legal Sex Male 10:00 PM EDT Gender Identity Male 06/27/2018 9:34 PM EDT Sexual Orientation Straight 06/27/2018 9: 34 PM EDT documented as of this encounter Plan of Treatment Upcoming Encounters Date Type Department Care Team (Late st Contact Info) Description 11/17/2025 12:45 PM EST Office Visit [facility] [address] [facility] 3rd Floor, [address] [place] [address] Richar Drake DO [address] [facility] [address] [place] [address] documented as of this encounter Visit Diagnoses Not on filedocumented in this encounter Care Teams Rubber Flap Cutter Relationship Specialty Start Date End Date Praneeth Barrow DO [email or web address] PCP - General 11/08/17 documented as of this encounter Additional Source Comments The information contained in this document represents components of the legal health record. It is not the complete legal health record.[facility]
--- OUTSIDE RECORDS SUMMARY | 2025-09-14 14:32 | XMS_ITS | Encounter Summary ---
Author Organization [facility] Address [address] [place] [address] Phone Care Team Providers Care Environmental Associate Name Role Phone Praneeth Barrow Primary Care Provider Encounter Details Date Type Department Care Team (Late Contact Info) Description 09/13/2021 Procedure Pass [facility] Endoscopy Admitting Dept Virtual Department [address] [place] [address] Social History Tobacco Use Types Packs/Day Years [...] Description 11/17/2025 12:45 PM EST Office Visit [facility] [address] [facility] 3rd Floor, [address] [place] [address] Richar Drake DO [address] [facility] [address] [place] [address] documented as of this encounter Visit Diagnoses Not on filedocumented in this encounter Care Teams Environmental Associate Relationship Specialty Start Date End Date Praneeth Barrow DO [email or web address] PCP - General 11/08/17 documented as of this encounter Additional Source Comments The information contained in this document represents components of the legal health record. It is not the complete legal health record.[facility]
--- OUTSIDE RECORDS SUMMARY | 2025-09-14 14:32 | XMS_ITS | Encounter Summary ---
Author Organization [facility] Address [address] [place] [address] Phone Care Team Providers Care Life Insurance Actuary Name Role Phone Praneeth Barrow DO Primary Care Provider [phone] Reason for Referral * MRI/CAT Scan - Closed Specialty Diagnoses / Procedures Referred By Geri austin Referred To Contact Radiology Diagnoses Hydrocephalus, unspecified type Procedures CT Head Praneeth Barrow DO Phone: tel: fax: [email or web address] Referral ID Status Reason Start Date Expiration Date Visits Re quested Visits Authorized [id number] Closed 04/28/2022 04/28/2023 1 1 Encounter Details Date Type Department Care Team (Late st Contact Info) Description 04/28/2022 Transcribe Orders Virtual Department [address] [place] [address] Praneeth Barrow DO [address] [facility] [place] [address] [place] [address] [email or web address] Hydrocephalus, unspecified type (Primary Dx) Social History Tobacco Use Types [...] 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 Not on file documented as of this encounter Plan of Treatment Upcoming Encounters Date Type Department Care Team (Late st Contact Info) Description 11/17/2025 12:45 PM EST Office Visit [facility] [address] [facility] 3rd Floor, [address] [place] [address] Richar Drake DO [address] [facility] [address] [place] [address] [email or web address] documented as of this encounter Results * CT HEAD WITHOUT CONTRAST (05/02/2022 5:55 PM EDT) Anatomical Region Laterality Modality Head Computed Tomogra phy 05/02/2022 6:04 PM EDT Impressions 05/02/2022 6:20 PM EDT No acute intracranial findings. No interval change. Narrative 05/02/2022 6:20 PM EDT COMPARISON: 06/27/2018. TECHNIQUE: Nonenhanced head CT from skull base to vertex with multi-planar reformats. Manual dose reduction technique tailored for patient and site of imaging. CT HEAD FINDINGS: Brain: There is no acute intracranial hemorrhage, infarct, or intracranial mass. No mass effect, midline shift or extra-axial fluid collections. Stable generalized cortical atrophy, left parietal, occipital, posterior temporal lobe and bilateral inferior lobe encephalomalacia. López-white matter differentiation is otherwise preserved. Basal cisterns are patent. Pituitary gland is not enlarged. Ventricles: No hydrocephalus. Stable mild ventriculomegaly and right frontal shunt catheter terminating in the foramen Monro. 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 Orbits: Normal. Mastoids/Middle Ear/Ext Canals/Paranasal Sinuses: Mild right nasal septal deviation. Otherwise normal. Scalp/Soft Tissues: Unremarkable. Bones: No acute bony abnormality. Chronic left parietal and occipital craniectomy postoperative changes and right frontal shunt catheter. Procedure Note Lupillo Hicks MD - 05/02/2022 COMPARISON: 06/27/2018. TECHNIQUE: Nonenhanced head CT from skull base to vertex with multi- planarreformats. Manual dose reduction technique tailored for patient and siteof imaging. CT HEAD FINDINGS: Brain: There is no acute intracranial hemorrhage, infarct, orintracranial mass. No mass effect, midline shift or extra-axial fluidcollections. Stable generalized cortical atrophy, left parietal,occipital, posterior temporal lobe and bilateral inferior lobeencephalomalacia. López-white matter differentiation is otherwisepreserved. Basal cisterns are patent. Pituitary gland is not enlarged. Ventricles: No hydrocephalus. Stable mild ventriculomegaly and rightfrontal shunt catheter terminating in the foramen Monro. Vasculature: Chronic severe bilateral cavernous carotid artery and distalvertebral artery atherosclerosis. Orbits: Normal. Mastoids/Middle Ear/Ext Canals/Paranasal Sinuses: Mild right nasal septaldeviation. Otherwise normal. Scalp/Soft Tissues: Unremarkable. Bones: No acute bony abnormality. Chronic left parietal and occipitalcraniectomy postoperative changes and right frontal shunt catheter. IMPRESSION: No acute intracranial findings. No interval change. Praneeth Barrow DO IMG CT HEAD/NECK Final Result documented in this encounter Visit Diagnoses Diagnosis Hydrocephalus, unspecified type- Primary Hydrocephalus, unspecified type documented in this encounter Care Teams Life Insurance Actuary Relationship Specialty Start Date End Date Praneeth Barrow DO [email or web address] PCP - General 11/08/17 documented as of this encounter Additional Source Comments The information contained in this document represents components of the legal health record. It is not the complete legal health record.[facility]
--- OUTSIDE RECORDS SUMMARY | 2025-09-14 14:32 | XMS_ITS | Encounter Summary ---
Author Organization [facility] Address [address] [place] [address] Phone Care Team Providers Care Solar Energy System Installer Name Role Phone [place] Praneeth Yoon PRICE Primary Care Provider [phone] Encounter Details Date Type Department Care Team (Late st Contact Info) Description 09/10/2018 Ancillary Orders Virtual Department [address] [place] [address] Christine Rodriguez, ALYSHA Peters. 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, [address] [place] [address] Richar Weinberg DO [address] [facility] [address] [place] [address] [email or web address] documented as of this encounter Results * US Abdominal Aortic Screening (09/24/2018 9:57 AM EST) Anatomical Region Laterality Modality Abdomen Ultrasound 09/24/2018 11:4 8 AM EST Impressions 09/24/2018 11:53 AM EST Moderate-sized mid abdominal aorta aneurysm POS [id number] Narrative 09/24/2018 11:53 AM EST Compare to lumbar plain films 09/05/2018 FINDINGS: Upper aorta 2.1 x 1.8 cm Mid aorta 3.5 x 2.5 cm. Distal aorta 2.0 x 2.0 cm Dilated segment is approximately 4.2 cm in length. Both common iliac arteries are mildly prominent as well; right 1.8 cm, left 1.6 cm No gross signs of dissection or leak. Procedure Note Miles Robles MD - 09/24/2018 Compare to lumbar plain films 09/05/2018 FINDINGS: Upper aorta 2.1 x 1.8 cm Mid aorta 3.5 x 2.5 cm. Distal aorta 2.0 x 2.0 cm Dilated segment is approximately 4.2 cm in length. Both common iliac arteries are mildly prominent as well; right 1.8 cm,left 1.6 cm No gross signs of dissection or leak. IMPRESSION: Moderate-sized mid abdominal aorta aneurysm POS [id number] February Michael ENCARNACION IMG US ABDOMEN Final Result documented in this encounter Visit Diagnoses Diagnosis Abdominal aortic aneurysm without rupture Abdominal aneurysm without mention of rupture Abdominal aortic aneurysm without rupture Abdominal aneurysm without mention of rupture documented in this encounter Care Teams Solar Energy System Installer Relationship Specialty Start Date End Date Praneeth Barrow DO [email or web address] PCP - General 11/08/17 documented as of this encounter Additional Source Comments The information contained in this document represents components of the legal health record. It is not the complete legal health record.[facility]
--- OUTSIDE RECORDS SUMMARY | 2025-09-14 14:32 | XMS_ITS | Encounter Summary ---
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 on file documented as of this encounter Plan of Treatment Upcoming Encounters Date Type Department Care Team (Late st Contact Info) Description 11/17/2025 12:45 PM EST Office Visit [facility] [address] [facility] 3rd [address], [address] [place] [address] Richar Drake DO [address] [facility] [address] [place] [address] documented as of this encounter Visit Diagnoses Not on filedocumented in this encounter Care Teams Floor Hand Relationship Specialty Start Date End Date NitaPraneeth oden DO Yoon [email or web address] PCP - General 11/08/17 documented as of this encounter Additional Source Comments The information contained in this document represents components of the legal health record. It is not the complete legal health record.[facility]
[2025-09-14 18:11] LABS: MANUAL DIFF FLAG NO
[2025-09-14 18:35] LABS: Alanine Aminotransferase 30 U/L (0-40); Albumin Level 4.5 g/dL (3.5-5.0); Alkaline Phosphatase 108 U/L (39-117); Anion Gap 11 (12-20); Aspartate Amino Transferase 28 U/L (5-37); Blood Urea Nitrogen 15 mg/dL (9-16); Calcium 9.1 mg/dL (8.4-10.2); Carbon Dioxide 26 mmol/L (22-29); Chloride 107 mmol/L (96-108); Estimated Glomerular Filt Rate > 60; Potassium 4.4 mmol/L (3.3-5.1); Sodium 140 mmol/L (135-145); Total Protein 6.9 g/dL (6.5-8.0)
[2025-09-14 18:41] LABS: Hematocrit 42.2 % (42.0-52.0); Hemoglobin 14.4 g/dl (14.0-18.0); Imm Gran Abs Auto 0.03 X10*3/uL (0.00-0.03); Imm Gran Pct Auto 0.4 % (0.0-0.4); Lymphocytes Absolute Auto 1.4 X10*3/uL (1.2-4.9); Mean Corpuscular HGB Conc 34.1 g/dl (31.0-36.0); Mean Corpuscular Hemoglobin 35.7 pg (27.0-33.0); Mean Corpuscular Volume 104.7 fL (80.0-98.0); NRBC Abs Auto 0.000 X10*3/uL (0.0-0.012); NRBC Pct Auto 0.0 /100WBC (0.0-0.2); Platelet Count 149 X10*3/uL (160-400); Red Blood Count 4.03 X10*6/uL (4.60-5.80); White Blood Count 7.0 X10*3/uL (4.8-10.8)
[2025-09-14 18:58] LABS: Prostate Specific Antigen 0.76 ng/mL (<0.05-4.0)
[2025-09-15 05:34] LABS: Hemoglobin A1C 75.4234 umol/L; Total Hemoglobin (HGBA1C) 2426.9717 umol/L
== END 2025-09-14 12:11 | disposition home or self-care (01) ==
LOC: HO.MANLDS 12:10
PROVIDERS: Visit Provider Physician Assistant
DX: Z12.5 Encounter for screening for malignant neoplasm of prostate (principal); Z13.1 Encounter for screening for diabetes mellitus; I10 Essential (primary) hypertension
CPT/HCPCS: 36415; 80053; 83036; 84153; 85025